=== PATIENT | male | born 1970 | race Caucasian/White ===

== ENCOUNTER 2024-11-17 01:11 | Day surgery (SDC) | payer OTHER, SELFPAY ==
[2024-11-08 14:48] VITALS: BMI 33.3
--- NOTE | 2024-11-08 14:59 | SUR.PREOP ---
Spoke with patient regarding medication plavix. patient verbalizes understanding that the last dose is to be taken on 11/08/24 and the Endoscopist will instruct them when to restart after the procedure. Patient also aware that per Dr. Perez to start on asprin 81mg until 5 days before his procedure.
--- OUTSIDE RECORDS SUMMARY | 2024-11-17 01:14 | XMS_ITS | Referral Summary ---
Author Organization [facility] [address] [place] [id number] Care Team Providers Care Bead Flipper Name Role Phone Modesto Tejada MD Unavailable Rios Vang MD Primary Care Provider [phone] Encounters Date Type Department Care Team Description 11/08/2024 9:00 AM PLUMBER SUPERVISOR Office Visit [facility] Medical [facility] Diabetes and Endocrinology [address] [place] [phone] Jenni Choi NP Type 2 diabetes mellitus with hyperglycemia, without long-term current use of insulin (HCC) (Primary Dx); Hypertension associated with type 2 diabetes mellitus (HCC); Hyperlipidemia associated with type 2 diabetes mellitus (HCC); Type 2 diabetes mellitus with diabetic polyneuropathy, without long-term current use of insulin (HCC); Abnormal thyroid function test 09/13/2024 Telephone [facility] Diabetes and Endocrinology [address] [place] [phone] Jenni Choi NP Med Refill from Last 3 Months Allergies Active Allergy Reactions Criticality Noted Date Comments Ticagrelor Other (See comments) ,Shortness of breath High 09/18/2022 Medications blood-glucose meter kit Active lancets [facility] Active atorvastatin (LIPITOR) 80 mg tablet Take 1 tablet (80 mg total) by mouth daily 1 Active lisinopriL (PRINIVIL,ZESTR IL) 5 mg tablet Take 1 tablet (5 mg total) by mouth daily 2 Active clopidogreL (PLAVIX) 75 mg tablet Take 1 tablet (75 mg total) by mouth daily 2 Active nitroglycerin (NITROSTAT) 0.[address] 1 TABLET UNDER THE TONGUE EVERY 5 MINUTES NEEDED FOR CHEST PAIN. 2 Active ranolazine ER (RANEXA) 500 mg 12 hr tablet Take 1 tablet (500 mg total) by mouth 2 (two) times a day Active blood glucose diagnostic strip One touch ulta 2 glucose test strips test blood sugars four times every day 150 strip 3 4 Active ezetimibe (ZETIA) 10 mg tablet Take 1 tablet (10 mg total) by mouth daily 4 Active metoprolol XL (TOPROL-XL) 25 mg extended release tablet Take 1 tablet (25 mg total) by mouth daily 4 Active Farxiga 10 mg tabletIndicatio ns:Type 2 diabetes mellitus with hyperglycemia, without long-term current use of insulin (HCC) TAKE ONE TABLET (10 MG TOTAL) BY MOUTH DAILY 90 tablet 3 4 Active ergocalciferol (VITAMIN D) 50,000 unit capsule TAKE 1 CAPSULE EVERY WEEK BY ORAL ROUTE. Active pregabalin (LYRICA) 75 mg capsule Take 1 capsule (75 mg total) by mouth 2 (two) times a day 180 capsule 2 4 Active ubrogepant (UBRELVY) 100 mg tablet Take 1 tablet (100 mg total) by mouth 2 (two) times a day as needed 5 Active traMADoL (ULTRAM) 50 mg tablet Take 1 tablet (50 mg total) by mouth every 6 (six) hours as needed 4 Active tamsulosin (FLOMAX) 0.4 mg extended release capsule 5 Active methocarbamoL (ROBAXIN) 750 mg tablet Take by mouth 2 (two) times a day as needed 5 Active metFORMIN (GLUCOPHAGE) 500 mg tabletIndicatio ns:Type 2 diabetes mellitus with diabetic polyneuropathy, without long-term current use of insulin (HCC) Take 1 tablet (500 mg total) by mouth 2 (two) times a day with meals 180 tablet 3 5 Active metFORMIN (GLUCOPHAGE) 500 mg tabletIndicatio ns:Type 2 diabetes mellitus with diabetic polyneuropathy, without long-term current use of insulin (HCC) TAKE ONE BY MOUTH TWICE DAILY WITH MEALS 180 tablet 3 4 11/08/19 25 Discontinu ed(Reorder ) Active Problems Problem Noted Date Diagnosed Date Type 2 diabetes mellitus with diabetic polyneuro geeta 10/30/2023 Assessment & Plan (11/08/2024 9:07 AM PLUMBER SUPERVISOR): Chronic problem. Currently taking Lyrica 75mg bid Reviewed foot care; needs to lotion daily. Aware to check feet nightly, not to go barefoot. Assessment & Plan (08/06/2024 10:05 AM PLUMBER SUPERVISOR): Chronic problem. Currently taking Lyrica 75mg bid Reviewed foot care; needs to lotion daily. Aware to check feet nightly, not to go barefoot. Assessment & Plan (04/28/2024 10:34 AM CDT): Chronic problem. Currently taking Lyrica 75mg bid Reviewed foot care; needs to lotion daily. Aware to check feet nightly, not to go barefoot. Assessment & Plan (10/30/2023 9:59 AM PLUMBER SUPERVISOR): Start Lyrica Hypertension associated with type 2 diabetes michael litus 07/28/2023 Assessment & Plan (11/08/2024 9:06 AM PLUMBER SUPERVISOR): Chronic problem. Controlled on current Lisinopril 5mg, metoprolol XL 25mg bid. Assessment & Plan (08/06/2024 10:05 AM PLUMBER SUPERVISOR): Chronic problem. Controlled on current Lisinopril 5mg, metoprolol XL 25mg bid. Will update labs today. Does not mychart. Verified phone #/address to contact re: results. Assessment & Plan (04/28/2024 10:34 AM CDT): Chronic problem. Controlled on current Lisinopril 5mg, metoprolol XL 25mg bid. Assessment & Plan (10/30/2023 9:56 AM PLUMBER SUPERVISOR): Chronic, well controlled Continue Lisinopril Assessment & Plan (07/29/2023 9:07 AM PLUMBER SUPERVISOR): Chronic problem. Controlled on current Lisinopril 5mg, isosorbide mononitrate ER 30mg daily, metoprolol XL 25mg bid. Will update labs today. Does not mychart. Verified phone #/address to contact re: results. Abnormal thyroid function test 12/10/2022 Assessment & Plan (11/08/2024 9:08 AM PLUMBER SUPERVISOR): Has been off methimazole since 12/12/22. TSH/T4 WNL 04/2024 but T3 remained elevated (but improved). Will repeat this summer. Assessment & Plan (08/06/2024 10:56 AM PLUMBER SUPERVISOR): Has been off methimazole since 12/12/22. TSH/T4 WNL 04/2024 but T3 remained elevated (but improved). Assessment & Plan (04/28/2024 10:35 AM CDT): Has been off methimazole since 12/12/22. Will repeat TFTs at next appt. TSH/T4 WNL 04/2023 but T3 remained elevated (but improved). Will update TFTs today. Verified that he uses [facility]. Aware to check results/results letter in [facility]. Will contact by phone if needed. Assessment & Plan (07/29/2023 9:10 AM PLUMBER SUPERVISOR): Has been off methimazole since 12/12/22. Will repeat TFTs at next appt. TSH/T4 WNL 04/2023 but T3 remained elevated (but improved). Assessment & Plan (05/08/2023 10:00 AM CDT): New problem Has been off methimazole since 12/12/22. Will repeat TFTs today. TSH/T4 WNL 01/2023 but T3 remained elevated (but improved). Verified phone #/address to contact re: results. Assessment & Plan (01/14/2023 9:35 AM CDT): New problem Has been off methimazole since 12/12/22. Will repeat TFTs today. Verified phone #/address to contact re: results. 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 This does not indicate thyroid dysfunction and does not need pharmacological intervention I repeated TFTs today including TSI and TPO antibodies. I did an ultrasound on Bruno that was completely normal. I have advised him on holding the methimazole. Class 2 severe obesity due t o excess calories with serious comorbidity and body mass index (BMI) of 35.0 to 35.9 in adult 10/01/2022 Assessment & Plan (10/01/2022 9:49 AM PLUMBER SUPERVISOR): Discussed healthy diet and importance of regular physical activity (20- 30min/day, 150min/wk). Has been walking. Reviewed red flags (NSTEMI 09/05/22) Dizziness and giddiness 07/16/2022 Assessment & Plan (07/16/2022 2:59 PM CDT): Hearing test [facility] Will obtain MRI report from [facility] in [place] Have vision checked Consider Vestibular rehab if no continued improvement Sensorineural hearing loss (SNHL) of both ears 1 09/15/2021 Assessment & Plan (07/16/2022 2:57 PM CDT): Hearing test [facility] Will obtain MRI report from [facility] in [place] Have vision checked Hyperlipidemia associated with type 2 diabetes jimmy [email or web address] 05/22/2022 Assessment & Plan (11/08/2024 9:06 AM PLUMBER SUPERVISOR): Chronic problem, currently taking atorvastatin 80mg daily & zetia 10mg. Last lipid panel: 08/06/24 LDL=41, TG=85. Assessment & Plan (08/06/2024 10:43 AM PLUMBER SUPERVISOR): Chronic problem, currently taking atorvastatin 80mg daily & zetia 10mg. Last lipid panel: 07/30/23 LDL=77, TG=67. Will update labs today. Does not mychart. Verified phone #/address to contact re: results. Assessment & Plan (05/03/2024 11:42 AM CDT): Chronic problem, currently taking atorvastatin 80mg daily & zetia 10mg. Last lipid panel: 07/30/23 LDL=77, TG=67. Assessment & Plan (07/29/2023 9:08 AM PLUMBER SUPERVISOR): Chronic problem, currently taking atorvastatin 80mg daily. Last lipid panel: 09/06/22 LDL=92, MI=398 Will update labs today. Does not mychart. Verified phone #/address to contact re: results. Assessment & Plan (05/08/2023 10:01 AM CDT): Chronic problem, currently taking atorvastatin 80mg daily. Last lipid panel: 09/06/22 LDL=92, IC=498 No changes at this time. Assessment & Plan (01/14/2023 9:32 AM CDT): Chronic problem, well controlled on current regimen. Last LDL=92 09/05/22. Atorvastatin 80mg daily. Has improved diet. No changes at this time. Assessment & Plan (10/01/2022 9:50 AM PLUMBER SUPERVISOR): Chronic problem, well controlled on current regimen. Last LDL=92 09/05/22. Atorvastatin 80mg daily. Has improved diet. No changes at this time. Assessment & Plan (05/23/2022 12:24 PM CDT): Chronic problem. On statin therapy, no changes. Type 2 diabetes mellitus wit h hyperglycemia, without long-term current use of insulin 09/11/2017 Assessment & Plan (11/08/2024 9:41 AM PLUMBER SUPERVISOR): Chronic problem, at goal. A1c improved from 6.3% 08/06/24 to now 6.1%. no changes at this time. Current medications: Metformin 500 mg twice daily with meals Farxiga 10 mg UTD on labs UTD on DM eye exam (05/14/24 [facility] Engaged with cardiology. Stop drinking regular soda! Increase activity as you can tolerate. Strive for regular exercise (30min most days) and diet (get at least 4-5 servings of fruit and veggies daily, avoid processed foods, increase lean protein intake and decrease carb portions as well as fruit juices, regular soda & desserts). Watch carbs and simple sugars. Check the feet daily for skin breakdown and infection. Assessment & Plan (08/06/2024 10:28 AM PLUMBER SUPERVISOR): Chronic problem, at goal. A1c improved from 6.6% 04/28/24 to now 6.3%. Current medications: Metformin 500 mg twice daily with meals Farxiga 10 mg Will update labs today. Does not mychart. Verified phone #/address to contact re: results. UTD on DM eye exam (05/14/24 no [facility] ). Engaged with cardiology. Stop drinking regular soda! Increase activity as you can tolerate. Strive for regular exercise (30min most days) and diet (get at least 4-5 servings of fruit and veggies daily, avoid processed foods, increase lean protein intake and decrease carb portions as well as fruit juices, regular soda & desserts). Watch carbs and simple sugars. Check the feet daily for skin breakdown and infection. Assessment & Plan (04/28/2024 11:07 AM CDT): Chronic problem, at goal. A1c stable/improved at 6.6%. Mounjaro 2.5mg weekly sent in to [facility] in [place]. If it is feasible; will send to mail order. If able to get Mounjaro; pay attention to your blood sugars. May be able to decrease/stop either metformin or farxiga. Reviewed similar SE as Ozempic. To stop if any abd pain or unresolving N/V. Current medications: Metformin 500 mg twice daily with meals Farxiga 10 mg Mounjaro 2.5mg weekly UTD on labs UTD on DM eye exam (08/03/22 no [facility]). Engaged with cardiology. Stop drinking regular soda! Increase activity as you can tolerate. Strive for regular exercise (30min most days) and diet (get at least 4-5 servings of fruit and veggies daily, avoid processed foods, increase lean protein intake and decrease carb portions as well as fruit juices, regular soda & desserts). Watch carbs and simple sugars. Check the feet daily for skin breakdown and infection. Assessment & Plan (10/30/2023 9:55 AM PLUMBER SUPERVISOR): Chronic, well controlled Continue Metformin and Farxiga. Diet and exercise . He needs to have an eye exam Assessment & Plan (07/29/2023 9:28 AM PLUMBER SUPERVISOR): Chronic problem, at goal. A1c stable/improved from 6.6% to 6.5%. Current medications: Metformin 500 mg twice daily with meals Farxiga 10 mg daily Will update labs today. Does not mychart. Verified phone #/address to contact re: results. UTD on DM eye exam (due this month). Reports difficulty w/activity d/t fatigue & chest pressure. Engaged with cardiology. Strive for regular exercise (30min most days) and diet (get at least 4-5 servings of fruit and veggies daily, avoid processed foods, increase lean protein intake and decrease carb portions as well as fruit juices, regular soda & desserts). Watch carbs and simple sugars. Check the feet daily for skin breakdown and infection. Assessment & Plan (05/08/2023 10:01 AM CDT): Chronic problem, at goal. A1c increased from 6.2% to 6.6%. Not wearing FSL (cost). Asked him to check BS daily or every other day Current medications: Metformin 500 mg BID Farxiga 10 mg UTD on labs. UTD on DM eye exam. Reports difficulty w/activity d/t fatigue & chest pressure. Engaged with cardiology. Strive for regular exercise (30min most days) and diet (get at least 4-5 servings of fruit and veggies daily, avoid processed foods, increase lean protein intake and decrease carb portions as well as fruit juices, regular soda & desserts). Watch carbs and simple sugars. Check the feet daily for skin breakdown and infection. Assessment & Plan (01/14/2023 9:31 AM CDT): Chronic problem, at goal. A1c improved from 6.6% to 6.2%. Not wearing FSL (cost). Asked him to check BS daily or every other day Has greatly improved diet. Has not drank ETOH is over 6 mos he states. Has cardiac cath scheduled 01/31/23. Current medications: Metformin 500 mg BID Farxiga 10 mg Strive for regular exercise (30min most days) and diet (get at least 4-5 servings of fruit and veggies daily, avoid processed foods, increase lean protein intake and decrease carb portions as well as fruit juices, regular soda & desserts). Watch carbs and simple sugars. Check the feet daily for skin breakdown and infection. Letter sent to [facility] to get copy of eye exam from summer/fall 2021. Assessment & Plan (10/01/2022 9:49 AM PLUMBER SUPERVISOR): Chronic problem, at goal. PCP would like him to monitor BG more often. Does not like to do fingersticks. Agreeable to Nambii Annel 2. Able to down load on his iPhone. Has greatly improved diet. Has not drank ETOH is over 6 mos he states. Remains off work until f/u with cardiology 10/22/22 (NSTEMI 09/05/22). No changes in meds. Assessment & Plan (05/23/2022 12:25 PM CDT): Chronic problem, improving. He is not having widely variable sugars and they have been normal when he checks during episodes of dizziness. Continue same medication regimen. Assessment & Plan (09/06/2021 4:08 PM PLUMBER SUPERVISOR): Hba1c was Lab Results Component Value Date HGBA1C 7.1 09/06/2021 today, indicating suboptimal DM control Goal Hba1c and blood glucose explained Diet and exercise were advised Adjustment to medications: Add Farxiga Continue metformin Check MA Assessment & Plan (02/15/2021 12:44 PM CDT): A1c 6.6. Continue metformin. Will stay off Ozempic for now. Can retry if A1c worsens. Assessment & Plan (10/19/2020 4:43 PM PLUMBER SUPERVISOR): Hba1c was Lab Results Component Value Date HGBA1C 6.0 10/19/2020 today, indicating adequate DM control Goals blood sugars of 120-160 and Hba1c under 7 % was explained. 1800 calorie, consistent carb diet recommended, no more than 3-45 grams of carbs per meal, avoiding concentrated sweet drinks and rapid absorption carbs. 25-45 min daily aerobic and resistance exercise recommended Blood glucose monitoring with fingers sticks. Continue Ozempic and metformin He needs to have an eye exam done Assessment & Plan (09/16/2019 1:39 PM PLUMBER SUPERVISOR): A1c 6.0. Continue metformin and Ozempic 0.25 since A1c improved at this dose and he could not tolerated higher dose. Importance of diet and exercise reviewed. Assessment & Plan (05/11/2019 1:17 PM CDT): Hba1c was Lab Results Component Value Date HGBA1C 7.4 % 05/11/2019 today, indicating suboptimal, worsening DM control 1800 calorie, consistent carb diet recommended, no more than 3-45 grams of carbs per meal, avoiding concentrated sweet drinks and rapid absorption carbs. 25-45 min daily aerobic and resistance exercise recommended Prevention and treatment of hyypoglcyemia discussed. Blood glucose monitoring with fingers sticks once a day Medications: Continue metformin Will try Ozempic. which could help with some weight loss Assessment & Plan (11/10/2018 11:22 AM PLUMBER SUPERVISOR): Hba1c was Lab Results Component Value Date HGBA1C 6.5 11/10/2018 today, indicating Adequate DM control 1800 calorie, consistent carb diet recommended 25-45 min daily aerobic and resistance exercise recommended Prevention and treatment of hyypoglcyemia discussed. Blood glucose monitoring with fingers sticks 1-2 x day . Oral medications: continue Metformin bid. Assessment & Plan (06/04/2018 1:48 PM CDT): Hba1c was Lab Results Component Value Date HGBA1C 6.5 06/04/2018 today, indicating adequate DM control 1800 calorie, consistent carb diet recommended 30 min daily aerobic and resistance exercise recommended Prevention and treatment of hyypoglcyemia discussed. Blood glucose monitoring with fingers sticks 1-2 x day . Assessment & Plan (09/11/2017 3:19 PM PLUMBER SUPERVISOR): Hba1c was 6.1 today, indicating very good DM control 1800 calorie, consistent carb diet recommended 30 min daily aerobic and resistance exercise recommended Prevention and treatment of hyypoglcyemia discussed. Blood glucose monitoring with fingers sticks 1-2 x months. Pt would prefer to stay on Metformin , in spite of occasional diarrhea, and that is fine. I explained to him that there are other good options, that might help also with some weight gain , in case the diarrhea worsens and he can not tolerate it more. Erectile dysfunction due to diseases classified elsewhere 09/11/2017 Assessment & Plan (10/19/2020 4:43 PM PLUMBER SUPERVISOR): Restart sildenafil, 60 mg daily Assessment & Plan (11/10/2018 11:21 AM PLUMBER SUPERVISOR): Advised on getting a penile vacuum pump device Assessment & Plan (06/04/2018 1:48 PM CDT): Try Viagra Assessment & Plan (09/11/2017 3:19 PM PLUMBER SUPERVISOR): Related to DM . Options of rx discussed Pt agrees on trying Cialis. Low testosterone in male 09/11/2017 Assessment & Plan (05/23/2022 12:24 PM CDT): Chronic problem, no benefit with testosterone replacement so now off. Assessment & Plan (09/06/2021 4:07 PM PLUMBER SUPERVISOR): Continue T replacement with testosterone injection Will get results of labs done recently by primary care doctor Assessment & Plan (02/15/2021 12:43 PM CDT): Provided with information for Good Rx where testosterone will be more affordable. He will start injections and follow up with labs just prior to NOV Assessment & Plan (10/19/2020 4:44 PM PLUMBER SUPERVISOR): Restart T Testosterone, with Testosterone cypionate, 100 mg weekly Assessment & Plan (09/16/2019 1:39 PM PLUMBER SUPERVISOR): Declines to have testosterone checked today since he is leaving town for work and will not be home for 5-6 months. He prefers to wait until then since he did not notice any difference taking testosterone. Assessment & Plan (05/11/2019 1:20 PM CDT): Will recheck T levels Restart T as indicated. Assessment & Plan (11/10/2018 11:21 AM PLUMBER SUPERVISOR): Will get T levels results Consider subc T every week. Assessment & Plan (06/04/2018 1:48 PM CDT): Recheck T levels Pt open to the option of T injections. Assessment & Plan (09/11/2017 3:20 PM PLUMBER SUPERVISOR): Pathophysiology of the condition was discussed with the patient at length Difference between primary vs secondary ( central-pituitary) hypogonadism was also explained to the patient Deleterious effects of hypogonadism were explained, Including decreased libido, fatigue, bone and muscle mass loss and probably increased cardiovascular risk . Need to do laboratory and imaging studies ( e.g. Pituitary ) , trying to differentiate primary vs secondary hypogonadism was also explained. Options of treatment , including Injectable and topical Testosterone were also discussed. Side effects, include prostate enlargement ( including probably prostate cancer ) with worsening urinary symptoms , increased RBC mass, with risk of erythrocytosis and , worsening sleep apnea. Pt not sure about wanting to take T replacement Will double check morning T levels, along with FSH and prolactin. Resolved Problems Problem Noted Date Diagnosed Date Resolved Date Morbid (severe) obesity due to excess calories 05/23/2022 09/30/2022 Loss of balance 09/30/2022 Social History Tobacco Use Types Packs/Day Years Used Date Smoking Tobacco: Never Smokeless Tobacco: Never Tobacco Cessation:Counseling Given: Not Answered Alcohol Use Standard Drinks/Week Comments Yes 0 (1 standard drink = 0.6 oz pur e alcohol) PHQ-2 Answer Date Recorded PHQ-2 Total Score (If total score is 3 or more points, staff should administer the PHQ-9) 0 10/01/2022 Sex and Gender Information Value Date Recorded Sex Assigned at Not on file Legal Sex Male 4:15 PM PLUMBER SUPERVISOR Gender Identity Not on file Sexual Orientation Not on file Last Filed Vital Signs Vital Sign Reading Time Taken Comments Blood Pressure 120/76 11/08/2024 8:59 AM PLUMBER SUPERVISOR Pulse 80 11/08/2024 8:59 AM PLUMBER SUPERVISOR Temperature 36.8 C (98.3 F) 07/16/2022 2:23 PM CDT Respiratory Rate 16 11/08/2024 8:59 AM PLUMBER SUPERVISOR Oxygen Saturation 97% 07/16/2022 2:23 PM CDT Inhaled Oxygen Concentration - - Weight 90.7 kg (200 lb) 11/08/2024 8:59 AM PLUMBER SUPERVISOR Height 167.6 cm (5' 5.98 ) 11/08/2024 8:59 AM CS T Body Mass Index 32.3 11/08/2024 8:59 AM PLUMBER SUPERVISOR Plan of Treatment Not on file Procedures Procedure Name Priority Date/Time Associated Diagnosis Comments POCT GLUCOSE Routine 11/08/2024 8:57 AM PLUMBER SUPERVISOR Type 2 diabetes mellitus with hyperglycemia, without long-term current use of insulin (HCC) POCT HEMOGLOBIN A1C Routine 11/08/2024 8 :57 AM PLUMBER SUPERVISOR Type 2 diabetes mellitus with hyperglycemia, without long-term current use of insulin (HCC) LIPID PANEL Routine 08/06/2024 4:00 PM PLUMBER SUPERVISOR Type 2 diabetes mellitus with hyperglycemia, without long-term current use of insulin (HCC) Hyperlipidemia associated with type 2 diabetes mellitus (HCC) ALBUMIN CREATININE RATIO, URINE Routine 08/06/2024 4:00 PM PLUMBER SUPERVISOR Type 2 diabetes mellitus with hyperglycemia, without long-term current use of insulin (HCC) HM DIABETES EYE EXAM Routine 05/14/2024 7:49 AM CDT COMPREHENSIVE METABOLIC PANEL Routine 07/30/2023 9:51 AM PLUMBER SUPERVISOR Type 2 diabetes mellitus with diabetic polyneuropathy, without long-term current use of insulin (CMS/HCC) (HCC) Hypertension associated with type 2 diabetes mellitus (HCC) from Last 3 Months or Most Recently Relevant to Health Maintenance Results * (ABNORMAL) POCT hemoglobin A1c (11/08/2024 8:57 AM PLUMBER SUPERVISOR) Hemoglobin A1C, POC 6.1 4.0 - 5.6 % Blood 11/08/2024 8:57 AM PLUMBER SUPERVISOR us Jenni Choi NP POINT OF CARE TEST ORDERA BLES Final Result * (ABNORMAL) POCT glucose (11/08/2024 8:57 AM PLUMBER SUPERVISOR) Pathologist [facility] Glucose Blood, POC 126 mg/dL Blood 11/08/2024 8:57 AM PLUMBER SUPERVISOR us Jenni Choi NP POINT OF CARE TEST ORDERA BLES Final Result * Albumin Creatinine Ratio, Urine (08/06/2024 4:00 PM PLUMBER SUPERVISOR) Pathologist [facility] Albumin Ur <12.0 mg/L Comment: Interpretive Data No reference range established. Current interpretive data was last revised 2019. Creatinine Ur 76.8 mg/dL MO[facility] PULIDO Comment: Interpretive Data No reference range established. Current interpretive data was last revised 2019. Albumin Creatinine Ratio, Ur <16 1 - 29 mg/g [facility]UL[facility] Urine 08/06/2024 4:00 PM PLUMBER SUPERVISOR 08/06/2024 7:10 PM PLUMBER SUPERVISOR us Jenni Choi NP LAB URINE ORDERABLES [place] Result [facility] [place]UL[place] [id number] [address] Department of [place] [address] * (ABNORMAL) Lipid panel (08/06/2024 4:00 PM PLUMBER SUPERVISOR) Pathologist [facility] Cholesterol 88 30 - 199 mg/dL Comment: Interpretive Data Ages < or = 19 years Acceptable: <170 mg/dL Borderline high: 170-199 mg/dL High: >or= 200 mg/dL Ages > or = 20 years Desirable: <200 mg/dL Borderline high: 200-239 mg/dL High: >or= 240 mg/dL Literature References: 1. Expert Panel on Integrated Guidelines for Cardiovascular Health and Risk Reduction in Children and Adolescents. Pediatrics 2011;128:S213 2. NCEP Expert Panel. Circulation 2004;110:227 Current Interpretive Data was last revised on 2018. Triglycerides 85 <=149 mg/dL MOLLY Comment: Interpretive Data Ages < or = 9 years Acceptable: <75 mg/dL Borderline high: 75-99 mg/dL High: >or= 100 mg/dL Ages 10 to 20 years Acceptable: <90 mg/dL Borderline high: 90-129 mg/dL High: >or= 130 mg/dL Ages > or = 20 years Desirable: <150 mg/dL Borderline high: 150-199 mg/dL High: 200-499 mg/dL Very high: >or= 499 mg/dL Literature References: 1. Expert Panel on Integrated Guidelines for Cardiovascular Health and Risk Reduction in Children and Adolescents. Pediatrics 2011;128:S213 2. NCEP Expert Panel. Circulation 2004;110:227 Current Interpretive Data was last revised on 2018. HDL 30(L) >=40 mg/dL MOLLY Comment: Interpretive Data Ages < or = 19 years Acceptable: >45 mg/dL Borderline low: 40-45 mg/dL Low: <40 mg/dL Ages > or = 20 years Desirable: >or= 60 mg/dL Low: <40 mg/dL Literature References: 1. Expert Panel on Integrated Guidelines for Cardiovascular Health and Risk Reduction in Children and Adolescents. Pediatrics 2011;128:S213 2. NCEP Expert Panel. Circulation 2004;110:227 Current Interpretive Data was last revised on 2018. LDL, calculated 41 <=129 mg/dL MOLLY Comment: Interpretive Data Ages < or = 19 years Acceptable: <110 mg/dL Borderline high: 110-129 mg/dL High: >or= 130 mg/dL Ages > or = 20 years Optimal: <100 mg/dL Near optimal: 100-129 mg/dL Borderline high: 130-159 mg/dL High: >160 mg/dL Calculated using the Floyd LDL-C estimating equation. This equation was implemented on 2024. Prior to this date LDL-C was estimated using the Friedewald equation. Literature References: 1. Expert Panel on Integrated Guidelines for Cardiovascular Health and Risk Reduction in Children and Adolescents. Pediatrics 2011;128:S213 2. NCEP Expert Panel. Circulation 2004;110:227 3. Floyd M et al. REBEKA Cardiol. 2019January 13;5(5):540-548. doi: 10.1001/jamacardio.2020.0013 Current Interpretive Data was last revised on 2024. Non-HDL Cholesterol 58 mg/dL MOLLY PULIDO Comment: Interpretive Data Ages < or = 19 years Acceptable: <120 mg/dL Borderline high: 120-144 mg/dL High: >145 mg/dL Ages > or = 20 years When triglycerides are >200 mg/dL, Non-HDL cholesterol is a secondary target of therapy with treatment goals that are 30 mg/dL greater than the LDL cholesterol target. Literature References: 1. Expert Panel on Integrated Guidelines for Cardiovascular Health and Risk Reduction in Children and Adolescents. Pediatrics 2011;128:S213 2. NCEP Expert Panel. Circulation 2004;110:227 Current Interpretive Data was last revised on 2018. Chol/HDL ratio 3 MOLLY PULIDO Blood 08/06/2024 4:00 PM PLUMBER SUPERVISOR 08/06/2024 7:10 PM PLUMBER SUPERVISOR Jenni Choi [employer]LL [employer]BER [employer]ARD WORKER LAB BLOOD ORDERABLES Tootie l Result MOLLY PULIDO [id number] [address] Department [place] [address] * HM DIABETES EYE EXAM (05/14/2024 7:49 AM CDT) us Historical Provider HEALTH MAINTENANCE Edited Result - Final * (ABNORMAL) Comprehensive metabolic panel (07/30/2023 9:51 AM PLUMBER SUPERVISOR) SCRIBED Sodium 138 136 - 145 mmol/L EXTERNAL LAB SCRIBED Potassium 4.7 3.5 - 5.1 mmol/L EXTERNAL LAB SCRIBED Chloride 102 100 - 108 mmol/L EXTERNAL LAB SCRIBED Carbon Dioxide 27.2 21 - 32 mmol/L EXTERNAL LAB SCRIBED Urea Nitrogen (BUN) 11 7 - 18 mg/dl EXTERNAL LAB SCRIBED Creatinine 1.00 0.7 - 1.3 mg/dl EXTERNAL LAB SCRIBED Glucose 118(A) 70 - 99 mg/dl EXTERNAL LAB SCRIBED Calcium 9.1 8.5 - 10.1 mg/dl EXTERNAL LAB SCRIBED Bilirubin 0.8 0.2 - 1.2 mg/dl EXTERNAL LAB SCRIBED Plasma Protein 7.5 6.4 - 8.2 g/dl EXTERNAL LAB SCRIBED Albumin 3.7 3.4 - 5.0 g/dl EXTERNAL LAB SCRIBED Alkaline Phosphatase 78 50 - 136 Units/L EXTERNAL LAB SCRIBED Alanine Transaminase (ALT) 44 16 - 60 Units/L EXTERNAL LAB SCRIBED Aspartate Transaminase (AST) 22 15 - 37 Units/L EXTERNAL LAB SCRIBED eGFR in NonAfrican Central African 89 >90 - NA EXTERNAL LAB Blood 07/30/2023 9:51 AM PLUMBER SUPERVISOR us Jenni Choi NP LAB BLOOD ORDERABLES Tootie hardin Result EXTERNAL LAB from Last 3 Months or Most Recently Relevant to Health Maintenance Insurance [facility] CMR Care Teams Bead Flipper Relationship Specialty Start Date End Date Rios Vang MD [address] [place] [address] PCP - General Internal Medicine 04/28/24 [place] [id number] [address] Consulting Physician Endocrinology Diabetes & Metabolism 10/14/18
--- OUTSIDE RECORDS SUMMARY | 2024-11-17 01:14 | XMS_ITS | Encounter Summary ---
Author Organization [facility] Address [address] [place] [address] Care Team Providers Care Pen Maker Name Role Phone Rios Vang MD Primary Care Provider Camden Perez MD Unavailable [phone] Shaunna Guillermo MD Unavailable Encounter Details Date Type Department Care Team (Late st Contact Info) Description 07/01/2023 Hospital Orders Only [facility] [employer] [place], [place] [id number] Jason Cortez MD [facility] [address] [place], [place] [id number] Social History Tobacco Use Types Packs/Day Years Used Date Smoking Tobacco: Never Smokeless Tobacco: Never Alcohol Use Standard Drinks/Week Comments Not Currently 0 (1 standard drink = 0.6 oz pur e alcohol) Sex and Gender Information Value Date Recorded Sex Assigned at Male 10/01/2024 2:09 PM ANCHORMAN Legal Sex Male 8:03 AM CDT Gender Identity Not on file Sexual Orientation Not on file Occupation Industry Job Start Date Job End Date [employer] Not on file Not on file Not on file documented as of this encounter Functional Status * RETIRED Are you deaf or do you have serious difficulty hearing Answer Date of Assessment Author Status No 09/06/2022 1:00 AM ANCHORMAN Activ e * RETIRED Are you blind or do you have serious difficulty seeing, even when wearing glasses? Answer Date of Assessment Author Status No 09/06/2022 1:00 AM ANCHORMAN Activ e * Do you have serious difficulty walking or climbing stairs? Answer Date of Assessment Author Status No 09/06/2022 1:00 AM Endy Lee RN Active * Do you have difficulty dressing or bathing? Answer Date of Assessment Author Status No 09/06/2022 1:00 AM Endy Lee RN Active * Because of a physical, mental, or emotional condition, do you have difficulty doing errands alone such as visiting a doctor's office or shopping? Answer Date of Assessment Author Status No 09/06/2022 1:00 AM Endy Lee RN Active documented as of this encounter Mental Status * Because of a physical, mental, or emotional condition, do you have serious difficulty concentrating, remembering, or making decisions? Answer Entry Date Author Status No 09/06/2022 1:00 AM Endy Lee RN Active documented in this encounter Plan of Treatment Upcoming Encounters Date Type Department Care Team (Late st Contact Info) Description 01/04/2025 9:40 AM CDT Office Visit [facility] Emergency Department - [address], [address] [place] [id number] Teri Marmolejo NP 3 [facility] [address] [place] [id number] 02/10/2025 11:40 AM CDT Office Visit [facility] Emergency Department - [facility] [address] [facility], [address] [place] [phone] Anjel Flores MD [address] [place] [id number] 04/01/2025 12:30 PM CDT Office Visit [facility] [phone] Camden Perez MD [address] [phone] documented as of this encounter Goals Goal Patient Goal Type Associated Problems Recent Progress Patient-Stated? Author Patient will return to prior living situation and remain independent in ADLs upon discharge from hospital Lifestyle No Joaquina Horner, RN documented as of this encounter Visit Diagnoses Not on filedocumented in this encounter Care Teams Pen Maker Relationship Specialty Start Date End Date Rios Vang MD [address] [phone] PCP - General INTERNAL MEDICINE 10/25/21 Camden Perez MD [address] [phone] Consulting Physician CARDIOVASCULAR DISEASE 08/18/24 Shaunna Guillermo MD [address] [place] [address] [address] [place] [address] INTERNAL MEDICINE HEMATOLOGY & ONCOLOGY 08/18/24 documented as of this encounter
--- OUTSIDE RECORDS SUMMARY | 2024-11-17 01:14 | XMS_ITS | Referral Summary ---
Author Organization [facility] Address [address] [place] [address] Care Team Providers Care Sample Grader Name Role Phone Unavailable Primary Care Provider Unavailabl e Source Comments [facility],non-owned Affiliates and Associated Physician Practices is amultiple site organization consisting of ambulatory clinics and hospital sitesin [place], [place], [place] and [place]. This disclosure is being madepursuant to the Care Everywhere program and may not contain all information available regarding this patient. Last updated 18.[facility] [employer] Social History Tobacco Use Types Packs/Day Years Used Date Smoking Tobacco: Never Assessed Sex and Gender Information Value Date Recorded Sex Assigned at Not on file Gender Identity Not on file Sexual Orientation Not on file Plan of Treatment Not on file
--- OUTSIDE RECORDS SUMMARY | 2024-11-17 01:14 | XMS_ITS | Clinical Summary ---
Author Organization [facility] [address] [place] [phone] Care Team Providers Care Show Dog Trainer Name Role Phone Modesto Tejada MD Unavailable Rios Vang MD Primary Care Provider [phone] Allergies Active Allergy Reactions Criticality Noted Date Comments Ticagrelor Other (See comments) ,Shortness of breath High 09/18/2022 Medications blood-glucose meter kit Active lancets misc Active atorvastatin (LIPITOR) 80 mg tablet Take [...] 10/30/2023 Assessment & Plan (11/08/2024 9:07 AM WHITESMITH): Chronic problem. Currently taking Lyrica 75mg bid Reviewed foot care; needs to lotion daily. Aware to check feet nightly, not to go barefoot. Assessment & Plan (08/06/2024 10:05 AM WHITESMITH): Chronic problem. Currently taking Lyrica 75mg bid Reviewed foot care; needs to lotion daily. Aware to check feet nightly, not to go barefoot. Assessment & Plan (04/28/2024 10:34 AM CDT): Chronic problem. Currently taking Lyrica 75mg bid Reviewed foot care; needs to lotion daily. Aware to check feet nightly, not to go barefoot. Assessment & Plan (10/30/2023 9:59 AM WHITESMITH): Start Lyrica Hypertension associated with type 2 diabetes michael litus 07/28/2023 Assessment & Plan (11/08/2024 9:06 AM WHITESMITH): Chronic problem. Controlled on current Lisinopril 5mg, metoprolol XL 25mg bid. Assessment & Plan (08/06/2024 10:05 AM WHITESMITH): Chronic problem. Controlled on current Lisinopril 5mg, metoprolol XL 25mg bid. Will update labs today. Does not mychart. Verified phone #/address to contact re: results. Assessment & Plan (04/28/2024 10:34 AM CDT): Chronic problem. Controlled on current Lisinopril 5mg, metoprolol XL 25mg bid. Assessment & Plan (10/30/2023 9:56 AM WHITESMITH): Chronic, well controlled Continue Lisinopril Assessment & Plan (07/29/2023 9:07 AM WHITESMITH): Chronic problem. Controlled on current Lisinopril 5mg, isosorbide mononitrate ER 30mg daily, metoprolol XL 25mg bid. Will update labs today. Does not mychart. Verified phone #/address to contact re: results. Abnormal thyroid function test 12/10/2022 Assessment & Plan (11/08/2024 9:08 AM WHITESMITH): Has been off methimazole since 12/12/22. TSH/T4 WNL 04/2024 but T3 remained elevated (but improved). Will repeat this summer. Assessment & Plan (08/06/2024 10:56 AM WHITESMITH): Has been off methimazole since 12/12/22. TSH/T4 WNL 04/2024 but T3 remained elevated (but improved). Assessment & Plan (04/28/2024 10:35 AM CDT): Has been off methimazole since 12/12/22. Will repeat TFTs at next appt. TSH/T4 WNL 04/2023 but T3 remained elevated (but improved). Will update TFTs today. Verified that he uses [facility]. Aware to check results/results letter in [facility]. Will contact by phone if needed. Assessment & Plan (07/29/2023 9:10 AM WHITESMITH): Has been off methimazole since 12/12/22. Will [...] 10/01/2022 Assessment & Plan (10/01/2022 9:49 AM WHITESMITH): Discussed healthy diet and importance of regular physical activity (20- 30min/day, 150min/wk). Has been walking. Reviewed red flags (NSTEMI 09/05/22) Dizziness and giddiness 07/16/2022 Assessment & Plan (07/16/2022 2:59 PM CDT): Hearing test [facility] Will obtain MRI report from [facility] in [place] Have vision checked Consider Vestibular rehab if no continued improvement Sensorineural hearing loss (SNHL) of both ears 1 09/15/2021 Assessment & Plan (07/16/2022 2:57 PM CDT): Hearing test [facility] Will obtain MRI report from [facility] in [place] Have vision checked Hyperlipidemia associated with type 2 diabetes jimmy fonseca 05/22/2022 Assessment & Plan (11/08/2024 9:06 AM WHITESMITH): Chronic problem, currently taking atorvastatin 80mg daily & zetia 10mg. Last lipid panel: 08/06/24 LDL=41, TG=85. Assessment & Plan (08/06/2024 10:43 AM WHITESMITH): Chronic problem, currently taking atorvastatin 80mg daily & zetia 10mg. Last lipid panel: 07/30/23 LDL=77, TG=67. Will update labs today. Does not mychart. Verified phone #/address to contact re: results. Assessment & Plan (05/03/2024 11:42 AM CDT): Chronic problem, currently taking atorvastatin 80mg daily & zetia 10mg. Last lipid panel: 07/30/23 LDL=77, TG=67. Assessment & Plan (07/29/2023 9:08 AM WHITESMITH): Chronic problem, currently taking atorvastatin 80mg daily. Last lipid panel: 09/06/22 LDL=92, WG=850 Will update labs today. Does not mychart. Verified phone #/address to contact re: results. Assessment & Plan (05/08/2023 10:01 AM CDT): Chronic problem, currently taking atorvastatin 80mg daily. Last lipid panel: 09/06/22 LDL=92, UK=262 No changes at this time. Assessment & Plan (01/14/2023 9:32 AM CDT): Chronic problem, well controlled on current regimen. Last LDL=92 09/05/22. Atorvastatin 80mg daily. Has improved diet. No changes at this time. Assessment & Plan (10/01/2022 9:50 AM WHITESMITH): Chronic problem, well controlled on current regimen. Last LDL=92 09/05/22. Atorvastatin 80mg daily. Has improved diet. No changes at this time. Assessment & Plan (05/23/2022 12:24 PM CDT): Chronic problem. On statin therapy, no changes. Type 2 diabetes mellitus wit h hyperglycemia, without long-term current use of insulin 09/11/2017 Assessment & Plan (11/08/2024 9:41 AM WHITESMITH): Chronic problem, at goal. A1c improved from 6.3% 08/06/24 to now 6.1%. no changes at this time. Current medications: Metformin 500 mg twice daily with meals Farxiga 10 mg UTD on labs UTD on DM eye exam (05/14/24 no DMR [facility] ). Engaged with cardiology. Stop drinking [...] infection. Assessment & Plan (08/06/2024 10:28 AM WHITESMITH): Chronic problem, at goal. A1c improved from 6.6% 04/28/24 to now 6.3%. Current medications: Metformin 500 mg twice daily with meals Farxiga 10 mg Will update labs today. Does not mychart. Verified phone #/address to contact re: results. UTD on DM eye exam (05/14/24 no DMR [facility] ). Engaged with cardiology. Stop drinking regular [...] 6.6%. Mounjaro 2.5mg weekly sent in to [facility] in [place]. If it is feasible; will send to [...] infection. Assessment & Plan (10/30/2023 9:55 AM WHITESMITH): Chronic, well controlled Continue Metformin and Farxiga. Diet and exercise . He needs to have an eye exam Assessment & Plan (07/29/2023 9:28 AM WHITESMITH): Chronic problem, at goal. A1c stable/improved from [...] skin breakdown and infection. Letter sent to [facility] to get copy of eye exam from summer/fall 2021. Assessment & Plan (10/01/2022 9:49 AM WHITESMITH): Chronic problem, at goal. PCP would like him to monitor BG more often. Does not like to do fingersticks. Agreeable to [employer]. Able to down load on his [...] regimen. Assessment & Plan (09/06/2021 4:08 PM WHITESMITH): Hba1c was Lab Results Component Value Date HGBA1C 7.1 09/06/2021 today, indicating suboptimal DM control Goal Hba1c and blood glucose explained Diet and exercise were advised Adjustment to medications: Add Farxiga Continue metformin Check MA Assessment & Plan (02/15/2021 12:44 PM CDT): A1c 6.6. Continue metformin. Will stay off Ozempic for now. Can retry if A1c worsens. Assessment & Plan (10/19/2020 4:43 PM WHITESMITH): Hba1c was Lab Results Component Value Date [...] done Assessment & Plan (09/16/2019 1:39 PM WHITESMITH): A1c 6.0. Continue metformin and Ozempic 0.25 [...] loss Assessment & Plan (11/10/2018 11:22 AM WHITESMITH): Hba1c was Lab Results Component Value Date [...] . Assessment & Plan (09/11/2017 3:19 PM WHITESMITH): Hba1c was 6.1 today, indicating very good [...] 09/11/2017 Assessment & Plan (10/19/2020 4:43 PM WHITESMITH): Restart sildenafil, 60 mg daily Assessment & Plan (11/10/2018 11:21 AM WHITESMITH): Advised on getting a penile vacuum pump device Assessment & Plan (06/04/2018 1:48 PM CDT): Try Viagra Assessment & Plan (09/11/2017 3:19 PM WHITESMITH): Related to DM . Options of rx discussed Pt agrees on trying Cialis. Low testosterone in male 09/11/2017 Assessment & Plan (05/23/2022 12:24 PM CDT): Chronic problem, no benefit with testosterone replacement so now off. Assessment & Plan (09/06/2021 4:07 PM WHITESMITH): Continue T replacement with testosterone injection Will get results of labs done recently by primary care doctor Assessment & Plan (02/15/2021 12:43 PM CDT): Provided with information for Good Rx where testosterone will be more affordable. He will start injections and follow up with labs just prior to NOV Assessment & Plan (10/19/2020 4:44 PM WHITESMITH): Restart T Testosterone, with Testosterone cypionate, 100 mg weekly Assessment & Plan (09/16/2019 1:39 PM WHITESMITH): Declines to have testosterone checked today since he is leaving town for work and will not be home for 5-6 months. He prefers to wait until then since he did not notice any difference taking testosterone. Assessment & Plan (05/11/2019 1:20 PM CDT): Will recheck T levels Restart T as indicated. Assessment & Plan (11/10/2018 11:21 AM WHITESMITH): Will get T levels results Consider subc T every week. Assessment & Plan (06/04/2018 1:48 PM CDT): Recheck T levels Pt open to the option of T injections. Assessment & Plan (09/11/2017 3:20 PM WHITESMITH): Pathophysiology of the condition was discussed with [...] calories 05/23/2022 09/30/2022 Loss of balance 09/30/2022 Encounters Date Type Department Care Team Description 11/08/2024 9:00 AM WHITESMITH Office Visit [facility] Diabetes and Endocrinology [address] [place] [phone] Jenni Choi NP Type 2 diabetes mellitus with hyperglycemia, without long-term current use of insulin (HCC) (Primary Dx); Hypertension associated with type 2 diabetes mellitus (HCC); Hyperlipidemia associated with type 2 diabetes mellitus (HCC); Type 2 diabetes mellitus with diabetic polyneuropathy, without long-term current use of insulin (HCC); Abnormal thyroid function test 09/13/2024 Telephone [facility] Diabetes and Endocrinology [address] [place] [phone] Jenni Choi NP Med Refill from Last 3 Months Medical History Medical History Date Comments Type 2 diabetes mellitus (HCC) Low testosterone in male Hyperlipidemia Family History Medical History Relation Name Comments Diabetes Father Relation Name Status Comments Father Alive Mother Alive Social History Tobacco Use Types Packs/Day Years [...] on file Legal Sex Male 4:15 PM WHITESMITH Gender Identity Not on file Sexual Orientation Not on file Obstetrics History Last Filed Vital Signs Vital Sign Reading Time Taken Comments Blood Pressure 120/76 11/08/2024 8:59 AM WHITESMITH Pulse 80 11/08/2024 8:59 AM WHITESMITH Temperature 36.8 C (98.3 F) 07/16/2022 2:23 PM CDT Respiratory Rate 16 11/08/2024 8:59 AM WHITESMITH Oxygen Saturation 97% 07/16/2022 2:23 PM CDT Inhaled Oxygen Concentration - - Weight 90.7 kg (200 lb) 11/08/2024 8:59 AM WHITESMITH Height 167.6 cm (5' 5.98 ) 11/08/2024 8:59 AM CS T Body Mass Index 32.3 11/08/2024 8:59 AM WHITESMITH Plan of Treatment Health Maintenance Due Date Last Done Comments Colon Cancer Screening-Colonoscopy 1969 Hepatitis C Screening 1969 Prostate Cancer Screening-PSA 1969 DTaP/Tdap/Td Vaccine (1 - Tdap) 1980 Hepatitis B Screening 1987 Regular Well Visit/Exam 18-64 1987 Pneumococcal vaccine <65 (1 of 2 - PCV) 1988 Zoster Vaccine (1 of 2) 2019 Depression Screening 10/01/2023 10/01/2022, 05/11/2019, 11/10/2018, Additional history exists Influenza Vaccine (#1) 2024 eGFR 07/30/2024 07/30/2023, 07/0 01/2022, 09/05/2021 Hemoglobin A1C 05/08/2025 11/08/2024, 07/17, 04/28/2024, Additional history exists Albumin Creatinine Ratio, Urine 08/06/2025 08/06/2024, 07/30/2023, 01/14/2023, Additional history exists Foot Exam 08/06/2025 08/06/2024, 07/16, 05/23/2022, Additional history exists Lipid Panel 08/06/2025 08/06/2024, 07/16, 07/30/2023, Additional history exists Dilated Eye Exam 05/14/2026 05/14/2024, , 09/06/2019, Additional history exists Procedures Procedure Name Priority Date/Time Associated Diagnosis Comments POCT GLUCOSE Routine 11/08/2024 8:57 AM WHITESMITH Type 2 diabetes mellitus with hyperglycemia, without long-term current use of insulin (HCC) POCT HEMOGLOBIN A1C Routine 11/08/2024 8 :57 AM WHITESMITH Type 2 diabetes mellitus with hyperglycemia, without long-term current use of insulin (HCC) LIPID PANEL Routine 08/06/2024 4:00 PM WHITESMITH Type 2 diabetes mellitus with hyperglycemia, without long-term current use of insulin (HCC) Hyperlipidemia associated with type 2 diabetes mellitus (HCC) ALBUMIN CREATININE RATIO, URINE Routine 08/06/2024 4:00 PM WHITESMITH Type 2 diabetes mellitus with hyperglycemia, without long-term current use of insulin (HCC) HM DIABETES EYE EXAM Routine 05/14/2024 7:49 AM CDT COMPREHENSIVE METABOLIC PANEL Routine 07/30/2023 9:51 AM WHITESMITH Type 2 diabetes mellitus with diabetic polyneuropathy, without long-term current use of insulin ([facility]/HCC) (HCC) Hypertension associated with type 2 diabetes mellitus (HCC) from Last 3 Months or Most Recently Relevant to Health Maintenance Results * (ABNORMAL) POCT hemoglobin A1c (11/08/2024 8:57 AM WHITESMITH) Hemoglobin A1C, POC 6.1 4.0 - 5.6 % Blood 11/08/2024 8:57 AM WHITESMITH us Jennijoanna Choi NP POINT OF CARE TEST ORDERA BLES Final Result * (ABNORMAL) POCT glucose (11/08/2024 8:57 AM WHITESMITH) Glucose Blood, POC 126 mg/dL Blood 11/08/2024 8:57 AM WHITESMITH us Jennijoanna Choi COAT OPERATOR INSULATOR POINT OF CARE TEST ORDERA BLES Final Result * Albumin Creatinine Ratio, Urine (08/06/2024 4:00 PM WHITESMITH) Albumin Ur <12.0 mg/L Comment: Interpretive Data No reference range established. Current interpretive data was last revised 2019. Creatinine Ur 76.8 mg/dL MOLLY Comment: Interpretive Data No reference range established. Current interpretive data was last revised 2019. Albumin Creatinine Ratio, Ur <16 1 - 29 mg/g MOLLY Urine 08/06/2024 4:00 PM WHITESMITH 08/06/2024 7:10 PM WHITESMITH us Jenni Choi COAT OPERATOR INSULATOR LAB URINE ORDERABLES [place]ie l Result MOLLY [id number] [address] Department [place] [address] * (ABNORMAL) Lipid panel (08/06/2024 4:00 PM WHITESMITH) Pathologist [facility] Cholesterol 88 30 - 199 mg/dL [...] NCEP Expert Panel. Circulation 2004;110:227 3. Floyd Triplett al. REBEKA Cardiol. 2019January 13;5(5):540-548. doi: [email or web address] [...] 3 MOLLY PULIDO Blood 08/06/2024 4:00 PM WHITESMITH 08/06/2024 7:10 PM WHITESMITH Jenni Choi COAT OPERATOR INSULATOR LAB BLOOD ORDERABLES Tootie hardin Result MOLLY PULIDO [id number] [address] Department [place] [address] * DIABETES EYE EXAM (05/14/2024 7:49 AM CDT) Historical Provider HEALTH MAINTENANCE Edited Result - Final * (ABNORMAL) Comprehensive metabolic panel (07/30/2023 9:51 AM WHITESMITH) SCRIBED Sodium 138 136 - 145 mmol/L [...] Units/L EXTERNAL LAB SCRIBED eGFR in NonAfrican Algerian 89 >90 - NA EXTERNAL LAB Blood 07/30/2023 9:51 AM WHITESMITH us Jenni Choi NP LAB BLOOD ORDERABLES Tootie hardin Result EXTERNAL LAB from Last 3 Months or Most Recently Relevant to Health Maintenance Insurance [facility] CMR Care Teams Show Dog Trainer Relationship Specialty Start Date End Date Rios Vang MD [address] [place] [address] PCP - General Internal Medicine 04/28/24 [place] [id number] [address] Consulting Physician Endocrinology Diabetes & Metabolism 10/14/18
--- OUTSIDE RECORDS SUMMARY | 2024-11-17 01:14 | XMS_ITS | Encounter Summary ---
Author Organization [facility] Address [address] [place] [address] Care Team Providers Care Business Technology Architect Name Role Phone Rios Vang MD Primary Care Provider Camden Perez MD Unavailable [phone] Shaunna Guillermo MD Unavailable [phone] Encounter Details Date Type Department Care Team (Late st Contact Info) Description 01/30/2023 Hospital Orders Only [facility] Rehabilitation Medicine Physician [place], [place] [phone] Jason Cortez MD [facility]. [facility] [address] [place], [place] [id number] Social History Tobacco Use Types Packs/Day Years Used Date Smoking Tobacco: Never Smokeless Tobacco: Never Alcohol Use Standard Drinks/Week Comments Not Currently 0 (1 standard drink = 0.6 oz pur e alcohol) Sex and Gender Information Value Date Recorded Sex Assigned at Male 10/01/2024 2:09 PM QUALITY CONTROL COORDINATOR Legal Sex Male 8:03 AM CDT Gender Identity Not on file Sexual Orientation Not on file Occupation Industry Job Start Date Job End Date [employer] Not on file Not on file Not on file COVID-19 Exposure Response Date Recorded In the last 10 days, have yo u been in contact with someone who was confirmed or suspected to have Coronavirus/COVID-19? No / Unsure 01/31/2023 6:38 AM CDT documented as of this encounter Functional Status * RETIRED Are you deaf or do you have serious difficulty hearing Answer Date of Assessment Author Status No 09/06/2022 1:00 AM QUALITY CONTROL COORDINATOR Activ e * RETIRED Are you blind or do you have serious difficulty seeing, even when wearing glasses? Answer Date of Assessment Author Status No 09/06/2022 1:00 AM QUALITY CONTROL COORDINATOR Activ e * Do you have serious [...] Description 01/04/2025 9:40 AM CDT Office Visit [facility] - [address], [address] [place] [phone] Teri Marmolejo NP [address] [place] [address] [address] [place], [place] [phone] 02/10/2025 11:40 AM CDT Office Visit [facility] - [address], [address] [place] [phone] Anjel Flores MD [address] [place] [address] 04/01/2025 12:30 PM CDT Office Visit [facility]-[address] [phone] Camden Perez MD [address] [phone] documented as of this encounter Goals Goal Patient Goal Type Associated Problems Recent Progress Patient-Stated? Author Patient will return to prior living situation and remain independent in ADLs upon discharge from hospital Lifestyle No Joaquina Horner, RN documented as of this encounter Visit Diagnoses Not on filedocumented in this encounter Care Teams Business Technology Architect Relationship Specialty Start Date End Date Rios Vang MD [address] [phone] PCP - General INTERNAL MEDICINE 10/25/21 Camden Perez MD [address] [phone] Consulting Physician CARDIOVASCULAR DISEASE 08/18/24 Shaunna Guillermo MD [address] [place] [address], [facility] [address] [place] [address] INTERNAL MEDICINE HEMATOLOGY & ONCOLOGY 08/18/24 documented as of this encounter
--- OUTSIDE RECORDS SUMMARY | 2024-11-17 01:14 | XMS_ITS | Clinical Summary ---
Author Organization [facility] Address [address] [place] [address] Care Team Providers Care Basting Marker Name Role Phone Rios Vang MD Primary Care Provider [phone] Bhupinder Rothman MD Unavailable [phone] Shaunna Guillermo MD Unavailable [phone] Allergies Active Allergy Reactions Criticality Noted Date Comments Ticagrelor Shortness of Breath High 09/18/2022 Medications metFORMIN (GLUCOPHAGE) 500 MG tablet Take 1 tablet (500 mg total) by mouth 2 (two) times daily. 10/22/19 22 Active pregabalin (LYRICA) 75 MG capsule Take 1 capsule (75 mg total) by mouth 2 (two) times daily. 10/30/19 24 Active vitamin D2, ergocalciferol , (DRISDOL) 1.25 mg capsule Take 1 capsule (1.25 mg total) by mouth every 7 days. Fridays Active ezetimibe (ZETIA) 10 MG tablet Take 1 tablet (10 mg total) by mouth daily. 90 tablet 1 06/08/20 24 Active Additional Information Patient taking differently:10 mg OralNightly, Reported on 11/04/2024 metoprolol succinate ER (TOPROL-XL) 25 MG 24 hr tablet Take 1 tablet (25 mg total) by mouth daily. 90 tablet 1 06/08/20 24 Active dapagliflozin (FARXIGA) 10 MG tablet Take 1 tablet (10 mg total) by mouth nightly. 12/10/19 24 Active lisinopril (PRINIVIL) 5 MG tablet TAKE ONE TABLET (5 MG TOTAL) BY MOUTH DAILY. 90 tablet 08/09/20 24 Active Additional Information Patient taking differently: 5 mg Oral Daily, Reported on 11/04/2024 senna-docusate (SENOKOT-S) 8.6-50 MG tablet Take 1 tablet by mouth daily. 60 tablet 1 08/23/20 24 Active traMADol (ULTRAM) 50 MG tabletIndicati ons:Acute Pain < 7 Day Supply,postop Take 1 tablet (50 mg total) by mouth every 6 (six) hours as needed for Pain. Indications: Acute Pain < 7 Day Supply, postop 28 tablet 08/23/20 24 Active clopidogrel (PLAVIX) 75 MG tablet Take 1 tablet (75 mg total) by mouth daily. 90 tablet 09/13/20 24 Active ubrogepant (UBRELVY) 100 MG tabletIndicati ons:Chronic migraine without aura without status migrainosus, not intractable Take 1 tablet (100 mg total) by mouth 2 (two) times daily as needed. Max of 2 tablets (200 mg) in 24 hours 16 tablet 11 10/05/19 25 Active atorvastatin (LIPITOR) 80 MG tablet TAKE ONE TABLET (80 MG TOTAL) BY MOUTH NIGHTLY AT BEDTIME. 90 tablet 10/25/19 25 Active nitroglycerin (NITROSTAT) 0.4 MG SL tablet DISSOLVE ONE UNDER THE TONGUE EVERY 5 MINUTES NEEDED FOR CHEST PAIN. IF PAIN PERSISTS AFTER 3 DOSES SEEK MEDICAL HELP 75 tablet 10/25/19 25 Active ranolazine ER (RANEXA) 500 MG 12 hr tablet Take 1 tablet (500 mg total) by mouth 2 (two) times daily. 180 tablet 1 11/05/19 25 Active nitroglycerin (NITROSTAT) 0.[address] 1 tablet (0.4 mg total) under the tongue every 5 (five) minutes as needed for Chest Pain. May use up to three doses, if a third dose is needed call 911. 25 tablet 3 10/30/19 24 025 Discontinued ranolazine ER (RANEXA) 500 MG 12 hr tablet Take 1 tablet (500 mg total) by mouth 2 (two) times daily. 180 tablet 1 05/03/20 24 025 Discontinued(R eorder) atorvastatin (LIPITOR) 80 MG tablet TAKE ONE TABLET (80 MG TOTAL) BY MOUTH NIGHTLY AT BEDTIME. 90 tablet 08/09/20 025 Discontinued Hospital, Clinic, or Other Facility Administered Medication Ordered Dose Route Frequency Start Date End Date Status triamcinolone acetonide (KENALOG-40) injection 40 mgIndications:Myofascial pain 40 mg IM Once 11/04/2024 11/05/2024 Ended lidocaine (XYLOCAINE) 2 % injection 2 mLIndications:Myofascial pain 2 mL Other Once 11/04/2024 11/05/2024 Ended Active Problems Problem Noted Date Diagnosed Date Disorder of shoulder 05/04/2024 Neck pain 05/04/2024 Type 2 diabetes mellitus wit h diabetic polyneuropathy ([facility]) 10/30/2023 Overview (05/04/2024): Last Assessment & Plan: Chronic problem. Currently taking Lyrica 75mg bid Reviewed foot care; needs to lotion daily. Aware to check feet nightly, not to go barefoot. Angina pectoris 01/03/2023 Palpitations 01/03/2023 Other fatigue 01/03/2023 TULIO on CPAP 01/03/2023 Abnormal thyroid function test 12/10/2022 Overview (05/04/2024): Last Assessment & Plan: Has been off methimazole since 12/12/22. Will repeat TFTs at next appt. TSH/T4 WNL 04/2023 but T3 remained elevated (but improved). Will update TFTs today. Verified that he uses [facility]. Aware to check results/results letter in [facility]. Will contact by phone if needed. Hyperthyroidism 11/25/2022 NSTEMI (non-ST elevated myoc ardial infarction) ([facility]) 09/16/2022 Coronary artery disease of n ative artery of [place] heart with stable angina pectoris 09/16/2022 Coronary stent patent 09/16/2022 OR (myocardial infarction) ([facility]) ACS (acute coronary syndrome) ([facility]) 09/05/2022 Sensorineural hearing loss (SNHL) of both ears 1 09/15/2021 Overview (05/04/2024): Last Assessment & Plan: Hearing test [facility] Will obtain MRI report from [facility] in [place] Have vision checked Hyperlipidemia associated wi th type 2 diabetes mellitus ([facility]) 05/22/2022 Overview (05/04/2024): Last Assessment & Plan: Chronic problem, currently taking atorvastatin 80mg daily & zetia 10mg. Last lipid panel: 07/30/23 LDL=77, TG=67. Dizziness and giddiness 04/15/2022 Overview (05/04/2024): Last Assessment & Plan: Hearing test [facility] Will obtain MRI report from [facility] in [place] Have vision checked Consider Vestibular rehab if no continued improvement Memory impairment 04/15/2022 Headache 03/15/2022 Restless sleeper 01/08/2022 Osteoarthritis of knee 12/07/2021 Post-traumatic osteoarthritis 12/07/2021 Hypertension 05/11/2019 Overview (05/04/2024): Last Assessment & Plan: Chronic problem. Controlled on current Lisinopril 5mg, metoprolol XL 25mg bid. Erectile dysfunction due to diseases classified elsewhere 09/11/2017 Overview (05/04/2024): Last Assessment & Plan: Restart sildenafil, 60 mg daily Low testosterone in male 09/11/2017 Overview (05/04/2024): Last Assessment & Plan: Chronic problem, no benefit with testosterone replacement so now off. Type 2 diabetes mellitus wit h hyperglycemia, without long-term current use of insulin ([facility]) 09/11/2017 Overview (05/04/2024): Last Assessment & Plan: Chronic problem, at goal. A1c stable/improved at 6.6%. Mounjaro 2.5mg weekly sent in to [facility] in [place]. If it is feasible; will send to [...] feet daily for skin breakdown and infection. Dyslipidemia 08/10/2017 Family history of heart disease 10/11/2015 Gastroesophageal reflux disease 10/11/2015 Encounters Date Type Department Care Team Description 11/05/2024 Telephone [facility] [place] [address] Bhupinder Rothman MD Surgical Clearance 11/05/2024 Telephone [facility] [place], [place] [id number] Bhupinder Rothman MD Refill Request (RANOLAZINE) 11/05/2024 MyChart Message Enc [facility]ty [facility] - [facility] [address], [address] [place] [address] Teri Marmolejo NP Ubrelvcynthia 11/04/2024 11:40 AM HYDRAULIC HAMMER OPERATOR Office [facility] [address], [address] [place] [phone] Anjel Flores MD Procedure (Trigger point/) 11/04/2024 Scan HEALTH INFO SRVCS Scanned, [facility] 11/04/2024 Travel 10/29/2024 Telephone [facility] [place] [address] Samaria Brown, TWILL CUTTER Information 10/27/2024 10:50 AM HYDRAULIC HAMMER OPERATOR - 10/27/2024 11:59 PM HYDRAULIC HAMMER OPERATOR Hospital Encounter [facility] [address] [place] [address] Rios Vang MD Discharge Disposition: Home or Self Care (Routine Discharge) 10/27/2024 Orders Only [facility] [address] [place] [address] Non-Staff, Provider 10/27/2024 Travel 10/26/2024 Orders Only [facility] [address] [place] [address] Non-Staff, Provider 10/14/2024 Abstract [facility] BUSINESS OFFICE [facility] [place] [address] Abstract, Doc [facility] 10/06/2024 Telephone [facility] [place] [facility] [address], [address] [place] [phone] Teri Marmolejo, TROY Prior Authorization (Ubrelvy) 10/05/2024 2:00 PM HYDRAULIC HAMMER OPERATOR [facility] [address], [address] [place] [phone] Teri Marmolejo NP Neuropathy (Follow up); Dizziness (Neck surgery helped balance/Still has some dizziness. ) 10/05/2024 9:07 AM HYDRAULIC HAMMER OPERATOR - 10/05/2024 11:59 PM HYDRAULIC HAMMER OPERATOR Hospital Encounter [facility] [place] [place] [address] Gus Campa MD Discharge Disposition: Home or Self Care (Routine Discharge) 10/05/2024 Travel 10/01/2024 2:11 PM HYDRAULIC HAMMER OPERATOR - 10/01/2024 11:59 PM HYDRAULIC HAMMER OPERATOR [place] [address] [place] [address] Bhupinder Rothman MD Discharge Disposition: Home or Self Care (Routine Discharge) 10/01/2024 1:00 PM HYDRAULIC HAMMER OPERATOR Office Visit [facility] [address] Bhupinder Rothman MD Coronary Artery Disease (6MO) 10/01/2024 Telephone [facility], [address] [address] Bhupinder Rothman MD Results 10/01/2024 Travel 09/13/2024 Telephone [facility], [address] [address] Bette Goel, [facility] Refill Request (Plavix/) 08/30/2024 10:46 AM HYDRAULIC HAMMER OPERATOR - 08/30/2024 11:59 PM HYDRAULIC HAMMER OPERATOR Hospital Encounter [facility] [address] [place] [address] Gideon Cortés MD Discharge Disposition: Home or Self Care (Routine Discharge) 08/30/2024 Orders Only [facility] [address] [place] [address] Gideon Cortés MD 08/23/2024 1:18 PM HYDRAULIC HAMMER OPERATOR Anesthesia Event [facility] [place] [address] Jacobo Garza MD [place], Samantha Rae, TELEMARKETING SUPERVISOR 08/23/2024 12:56 PM HYDRAULIC HAMMER OPERATOR - 08/23/2024 4:11 PM HYDRAULIC HAMMER OPERATOR [facility] [place] [address] Gus Campa MD CERVICAL 5-6 ANTERIOR CERVICAL DISCECTOMY AND FUSION 08/23/2024 9:29 AM HYDRAULIC HAMMER OPERATOR - 08/23/2024 6:00 PM HYDRAULIC HAMMER OPERATOR Hospital Encounter [facility] [place] [address] Gus Campa MD Discharge Disposition: Home or Self Care (Routine Discharge) 08/23/2024 Travel from Last 3 Months Family History Medical History Relation Comments Diabetes Father Heart Disease Father Hypertension Father Open Heart Father Stent Cardiac Father Cancer Maternal Aunt Cancer Maternal Grandmother Cancer Maternal Uncle 1 Cancer Maternal Uncle 2 Asthma Mother Heart Disease Mother Hypertension Mother Stent Cardiac Mother Cancer Paternal Aunt Relation Status Comments Father Alive Maternal Aunt Maternal Grandmother Maternal Uncle 1 Maternal Uncle 2 Mother Alive Paternal Aunt Social History Tobacco Use Types Packs/Day Years Used Date Smoking Tobacco: Never Passive Smoke Exposure: Never Smokeless Tobacco: Never Tobacco Cessation:Counseling Given: Yes Alcohol Use Standard Drinks/Week Comments Not Currently 0 (1 standard drink = 0.6 oz pur e alcohol) PHQ-2 Answer Date Recorded Patient Health Questionnaire-2 Score 0 04/01/2024 Sex and Gender Information Value Date Recorded Sex Assigned at Male 10/01/2024 2:09 PM HYDRAULIC HAMMER OPERATOR Legal Sex Male 8:03 AM CDT Gender Identity Not on file Sexual Orientation Not on file Occupation Industry Job Start Date Job End Date Elet[employer] Not on file Not on file Not on file Last Filed Vital Signs Vital Sign Reading Time Taken Comments Blood Pressure 117/83 11/04/2024 11:30 AM HYDRAULIC HAMMER OPERATOR Pulse 79 11/04/2024 11:30 AM HYDRAULIC HAMMER OPERATOR Temperature 36.6 C (97.8 F) 11/04/2024 11:30 AM HYDRAULIC HAMMER OPERATOR Respiratory Rate 17 08/23/2024 5:50 PM HYDRAULIC HAMMER OPERATOR Oxygen Saturation 97% 11/04/2024 11:30 AM HYDRAULIC HAMMER OPERATOR Inhaled Oxygen Concentration - - Weight 93.4 kg (206 lb) 11/04/2024 11:30 AM HYDRAULIC HAMMER OPERATOR Height 162.6 cm (5' 4 ) 11/04/2024 11:30 AM HYDRAULIC HAMMER OPERATOR Body Mass Index 35.36 11/04/2024 11:30 AM HYDRAULIC HAMMER OPERATOR Plan of Treatment Upcoming Encounters Date Type Department Care Team (Late st Contact Info) Description 01/04/2025 9:40 AM CDT Office Visit [facility] [address], [address] [place] [phone] Teri Marmolejo NP [address] [facility] [address] [place] [address] 02/10/2025 11:40 AM CDT Office Visit [facility] [address], [address] [place] [address] Anjel Flores MD [address] [place] [address] 04/01/2025 12:30 PM CDT Office Visit [facility] [address] Bhupinder Rothman MD [address] [facility] [address] [place] [phone] Health Maintenance Due Date Last Done Comments Colorectal Cancer Screening Colonoscopy (10 Years) 1969 Kidney Health Evaluation 1969 Annual Physical 1972 Pneumococcal Vaccine: Pediatrics (0 to 5 Years) and At-Risk Patients (6 to 64 Years) (1 of 2 - PCV) 1975 Diabetes: Retinopathy Eye Exam 1987 Hepatitis C 1987 DTaP, Tdap and Td Vaccines (1 - Tdap) 1988 Hepatitis B Vaccines (1 of 3 - 19+ 3-dose series) 1988 Zoster Vaccines (1 of 2) 2019 COVID-19 Vaccine (1 - season) 2024 Influenza Adult (#1) 2024 ASCVD LDL 07/30/2024 07/30/2023, 07/16, 07/11/2023, Additional history exists Lipid Panel 07/30/2024 07/30/2023, 07/16, 07/11/2023, Additional history exists PHQ-2 (Physician [place]) 09/15/2024 04/01/2024 Hemoglobin A1C 02/03/2025 08/06/2024, 07/30/2023 Meningococcal B Vaccine Aged Out No l onger eligible based on patient's age to complete this topic Meningococcal Vaccine Aged Out No isabella steven eligible based on patient's age to complete this topic RSV Immunizations Under 20 Months Aged Out No longer eligible based on patient's age to complete this topic Goals Goal Patient Goal Type Associated Problems Recent Progress Patient-Stated? Author Patient will return to prior living situation and remain independent in ADLs upon discharge from hospital Lifestyle No Joaquina Horner RN Medical Devices Implanted Type Area Nematologist Device Identifier Shelf Expiration Date Model / Serial / Lot Graft Bone I Factor 1cc Allograft Putty Syringe - [id number] Implanted:Qt y: 1 on 08/23/2024 by Gus Campa MD at [facility] Bone N/A: Spine Cervical [employer] [id number] 10/15/2026 700-010 / / [id number] Orthofix Implanted:Qt y: 1 on 08/23/2024 by Gus Campa MD at [facility] Cage N/A: Spine Cervical [id number] 04/08/2029 [id number] / / [id number] Zavation Plate Implanted:Qt y: 1 on 08/23/2024 by Gus Campa MD at [facility] Plate N/A: Spine Cervical 30-0114 / / Zavation Vsd Screw Implanted:Qt y: 4 on 08/23/2024 by Gus Campa MD at [facility] Screw N/A: Spine Cervical 31-4014 / / Tissue Surgiflo 8ml - [id number] Implanted:Qt y: 1 on 08/23/2024 by Gus Campa MD at [facility] Sealant N/A: Spine Cervical [employer] 07/15/2025 [id number] / / [id number] Explanted Type Area Nematologist Device Identifier Shelf Expiration Date Model / Serial / Lot Pin Distraction - [id number] Explanted:Qty: 2 on 08/23/2024 by Gus Campa MD at [facility] Screw N/A: Spine Cervical [employer] [id number] / / Procedures Procedure Name Priority Date/Time Associated Diagnosis Comments VITAMIN D, 25 OH Routine 10/27/2024 11:06 AM HYDRAULIC HAMMER OPERATOR Vitamin D deficiency XR CERV SPINE AP+LAT 2V Routine 10/05/2024 9:37 AM HYDRAULIC HAMMER OPERATOR Cervical myelopathy (CMS/HCC HHS/HCC) CTA CHEST STAT 10/01/2024 2:48 PM HYDRAULIC HAMMER OPERATOR SOB (shortness of breath) CREATININE WHOLE BLOOD Routine 10/01/2024 2:34 PM HYDRAULIC HAMMER OPERATOR SOB (shortness of breath) CBC W/DIFF AUTOMATED Routine 08/30/2024 10:10 AM HYDRAULIC HAMMER OPERATOR Elevated serum immunoglobulin free light chain level Leukocytosis (leucocytosis) COMPREHENSIVE METABOLIC PANEL Routine 08/30/2024 10:10 AM HYDRAULIC HAMMER OPERATOR Elevated serum immunoglobulin free light chain level Leukocytosis (leucocytosis) LDH, LACTATE DEHYDROGENASE Routine 08/30/2024 10:10 AM HYDRAULIC HAMMER OPERATOR Elevated serum immunoglobulin free light chain level Leukocytosis (leucocytosis) MAGNESIUM Routine 08/30/2024 10:10 AM HYDRAULIC HAMMER OPERATOR Elevated serum immunoglobulin free light chain level Leukocytosis (leucocytosis) PROTEIN, ELECTROPHORESIS Routine 08/30/2024 10:10 AM HYDRAULIC HAMMER OPERATOR Elevated serum immunoglobulin free light chain level Leukocytosis (leucocytosis) IMMUNOFIXATION Routine 08/30/2024 10:10 AM HYDRAULIC HAMMER OPERATOR Elevated serum immunoglobulin free light chain level Leukocytosis (leucocytosis) KAPPA LAMBDA FREE RATIO (QST) Routine 08/30/2024 10:10 AM HYDRAULIC HAMMER OPERATOR Elevated serum immunoglobulin free light chain level Leukocytosis (leucocytosis) IMMUNOGLOBULINS IGA IGG IGM Routine 08/30/2024 10:10 AM HYDRAULIC HAMMER OPERATOR Elevated serum immunoglobulin free light chain level Leukocytosis (leucocytosis) PROTEIN ELECTROPHORESIS URINE RANDOM Routine 08/30/2024 10:10 AM HYDRAULIC HAMMER OPERATOR Elevated serum immunoglobulin free light chain level Leukocytosis (leucocytosis) SURG XR CERV SPINE 1V Routine 08/23/2024 3:52 PM HYDRAULIC HAMMER OPERATOR POCT GLUCOSE - MARTINI DOCKED DEVICE Routine 08/23/2024 3:49 PM HYDRAULIC HAMMER OPERATOR ARTHRODESIS, ANTERIOR INTERBODY CERV BELOW C2 08/23/2024 1:18 PM HYDRAULIC HAMMER OPERATOR G95.9, M50.20- CERVICAL MYELOPATHY, CERVICAL DISC HERNIATION Case Notes SCHED BY FAX 08/09/24 [facility] PRETEST 08/18 0800 Special Needs FA, FLUORO, NEW AGE POCT GLUCOSE - MARTINI DOCKED DEVICE Routine 08/23/2024 10:59 AM HYDRAULIC HAMMER OPERATOR HEMOGLOBIN, GLYCOSYLATED Routine 08/06/2024 LIPID PANEL Routine 07/30/2023 9:51 AM HYDRAULIC HAMMER OPERATOR Diabetic polyneuropathy (CMS/HCC HHS/HCC) Obesity, diabetes, and hypertension syndrome (CMS/HCC HHS/HCC) Endocrine hypertension Diabetes mellitus associated with hormonal etiology (CMS/HCC HHS/HCC) Hyperlipidemia from Last 3 Months or Most Recently Relevant to Health Maintenance Results * VITAMIN D, 25 OH (10/27/2024 11:06 AM HYDRAULIC HAMMER OPERATOR) VITAMIN D 25 HYDROXY S/P/B 39 30 - 100 NG/ML 10/27/2024 12:24 PM HYDRAULIC HAMMER OPERATOR [facility] Comment: INTERPRETATION DEFICIENT <20 INSUFFICIENT 20-29 SUFFICIENT 30-100 10/27/2024 11:0 6 AM HYDRAULIC HAMMER OPERATOR us Provider Non-Staff LABORATORY Final Result [facility] [address] [place] [address], * XR CERV SPINE AP+LAT 2V (10/05/2024 9:37 AM HYDRAULIC HAMMER OPERATOR) Anatomical Region Laterality Modality Spine Radiographic Shelley ging 10/05/2024 10:2 5 AM HYDRAULIC HAMMER OPERATOR Impressions 10/05/2024 10:27 AM HYDRAULIC HAMMER OPERATOR ===== Impression: ===== 1. No acute osseous abnormalities 2. C5-6 anterior cervical fusion changes. Ordered By: GUS CAMPA Interpreted By: Hugo Aldana MD, 10/05/2024 10:25 AM Narrative 10/05/2024 10:27 AM HYDRAULIC HAMMER OPERATOR [address] [address] Examination: Cervical spine x-rays, AP and Lateral Exam Date/Time: 10/05/2024 9:10 AM Reason For Exam: Cervical myelopathy Comparison: No prior exam Technique: AP and Lateral views of the cervical spine were obtained Findings: No evidence of prevertebral soft tissue swelling. Minimal nonspecific reversal of normal cervical lordosis. Intact C5-6 anterior cervical fusion changes. C7-T1 relationship not well visualized secondary to shoulder attenuation on the lateral view. No visualized fracture or subluxation. Significant anterior vertebral body endplate spurring C3-4 and C4-5 levels. External opacity related to cervical collar. Procedure Note Hugo Aldana MD - 10/05/[address] [address] Examination: Cervical spine x-rays, AP and Lateral Exam Date/Time: 10/05/2024 9:10 AM Reason For Exam: Cervical myelopathy Comparison: No prior exam Technique: AP and Lateral views of the cervical spine were obtained Findings: No evidence of prevertebral soft tissue swelling. Minimalnonspecific reversal of normal cervical lordosis. Intact C5-6 anteriorcervical fusion changes. C7-T1 relationship not well visualized secondaryto shoulder attenuation on the lateral view. No visualized fracture orsubluxation. Significant anterior vertebral body endplate spurring C3-4and C4-5 levels. External opacity related to cervical collar. ===== Impression: ===== 1. No acute osseous abnormalities 2. C5-6 anterior cervical fusion changes. Ordered By: GUS CAMPA Interpreted By: Hugo Aldana MD, 10/05/2024 10:25 AM Gus Campa MD GENERAL IMAGING Final Result * CTA CHEST (10/01/2024 2:48 PM HYDRAULIC HAMMER OPERATOR) Anatomical Region Laterality Modality Chest Computed Tomogra phy 10/01/2024 3:01 PM HYDRAULIC HAMMER OPERATOR Impressions 10/01/2024 3:08 PM HYDRAULIC HAMMER OPERATOR Impression: 1. No evidence of acute pulmonary embolism nor right heart strain. No acute findings in the chest. 2. Severe coronary artery disease. Ordered By: BHUPINDER ROTHMAN Interpreted By: Viktor Aldana MD, 10/01/2024 3:01 PM Narrative 10/01/2024 3:08 PM HYDRAULIC HAMMER OPERATOR [facility] [address] [place] [address] Procedure: CTA Chest PE Protocol Comparison: None available. Indication: Shortness of breath. Chest pain. Technique: CTA imaging of the chest was performed with intravenous contrast, per pulmonary embolism protocol. Iodinated contrast was used due to the indications for the examination, to improve disease detection and to further define anatomy. Coronal and sagittal reformatted images were generated and reviewed. 3-D maximum intensity projection (MIP) reconstructions were performed of the chest to potentially increase study sensitivity. A dose lowering technique was utilized for this procedure which may include but is not limited to dose reduction techniques, automated exposure control, and/or the use of iterative reconstruction in accordance with ALARA principle. Findings: - Thoracic Vessels: Normal caliber of the thoracic aorta and main pulmonary artery. No suspicious filling defects identified to suggest acute pulmonary embolus. No evidence of right heart strain. Mild atherosclerotic plaque of the thoracic aorta. - Chest wall and Thoracic Inlet: No masses or lymphadenopathy. - Mediastinum and Irish: No masses or lymphadenopathy. Calcified mediastinal and right hilar lymph nodes as evidence of prior granulomatous disease. - Heart and Pericardium: Normal heart size. No pericardial effusion. Severe coronary artery calcifications. Coronary artery stents. - Lungs and Airways: Scattered calcified granulomatous disease. Mild bibasilar subsegmental atelectasis. - Pleura: No pleural effusions. - Upper Abdomen: No acute findings. Calcified splenic granulomata. Low- attenuation lesion within the posterior aspect of the spleen measuring 1.0 cm, favor benign etiology such as a cyst or hemangioma. This was also seen on prior CT abdomen pelvis 06/18/2024 and is not significantly changed. - Musculoskeletal: No aggressive appearing osseous lesions. Mild to moderate thoracic spondylosis. Procedure Note Viktor Aldana MD - 10/01/2024 [facility] [address] [place] [id number] Procedure: CTA Chest PE Protocol Comparison: None available. Indication: Shortness of breath. Chest pain. Technique: CTA imaging of the chest was performed with intravenouscontrast, per pulmonary embolism protocol. Iodinated contrast was used dueto the indications for the examination, to improve disease detection andto further define anatomy. Coronal and sagittal reformatted images weregenerated and reviewed. 3-D maximum intensity projection (MIP)reconstructions were performed of the chest to potentially increase studysensitivity. A dose lowering technique was utilized for this procedurewhich may include but is not limited to dose reduction techniques,automated exposure control, and/or the use of iterative reconstruction inaccordance with ALARA principle. Findings: - Thoracic Vessels: Normal caliber of the thoracic aorta and mainpulmonary artery. No suspicious filling defects identified to suggestacute pulmonary embolus. No evidence of right heart strain. Mildatherosclerotic plaque of the thoracic aorta. - Chest wall and Thoracic Inlet: No masses or lymphadenopathy. - Mediastinum and Irish: No masses or lymphadenopathy. Calcifiedmediastinal and right hilar lymph nodes as evidence of prior granulomatousdisease. - Heart and Pericardium: Normal heart size. No pericardial effusion.Severe coronary artery calcifications. Coronary artery stents. - Lungs and Airways: Scattered calcified granulomatous disease. Mildbibasilar subsegmental atelectasis. - Pleura: No pleural effusions. - Upper Abdomen: No acute findings. Calcified splenic granulomata.Low- attenuation lesion within the posterior aspect of the spleen measuring1.0 cm, favor benign etiology such as a cyst or hemangioma. This was alsoseen on prior CT abdomen pelvis 06/18/2024 and is not significantlychanged. - Musculoskeletal: No aggressive appearing osseous lesions. Mild tomoderate thoracic spondylosis. Impression: 1. No evidence of acute pulmonary embolism nor right heart strain. Noacute findings in the chest. 2. Severe coronary artery disease. Ordered By: BHUPINDER ROTHMAN Interpreted By: Viktor Aldana MD, 10/01/2024 3:01 PM us Bhupinder Rothman MD CT Final Result * CREATININE WHOLE BLOOD (Radiology only) (10/01/2024 2:34 PM HYDRAULIC HAMMER OPERATOR) CREATININE WHOLE BLOOD 1.1 0.6 - 1.2 MG/DL 10/01/2024 4:47 PM HYDRAULIC HAMMER OPERATOR [facility] 10/01/2024 2:34 PM HYDRAULIC HAMMER OPERATOR Bhupinder Rothman MD LABORATORY Final Result [facility] [address] [place] [address], [place] [phone] * (ABNORMAL) KAPPA LAMBDA FREE RATIO (QST) (08/30/2024 10:10 AM HYDRAULIC HAMMER OPERATOR) KAPPA FREE LIGHT CHAIN 20.0(H) 3.3 - 19.4 mg/L 09/01/2024 10:15 PM HYDRAULIC HAMMER OPERATOR [employer] THOMAS-Good EggsTI LLY LAMBDA FREE LIGHT CHAIN 14.8 5.7 - 26.3 mg/L 09/01/2024 10:15 PM HYDRAULIC HAMMER OPERATOR [employer] [facility] LLY KAPPA/LAMBDA FREE 1.35 0.26 - 1.65 09/01/2024 10:15 PM HYDRAULIC HAMMER OPERATOR [employer] [facility] THOMAS-Good EggsHERMELINDO LLY Comment: Free kappa/lambda ratio in serum of normal individuals is 0.26-1.65. Excess production of free kappa or lambda chains can alter the ratio. Monoclonal free light chains are found in the serum of patients with multiple myeloma, Waldenstrom's macroglobulinemia, mu-heavy chain disease, primary amyloidosis, light chain deposition disease, monoclonal gammopathy of undetermined significance, and lymphoproliferative disorders. Measurement of free light chain concen- tration in serum is useful for diagnosis, prognosis, monitoring disease activity and following response to therapy of these disorders. Test Performed by [employer], [facility], [address] [place], [place] Brian Villagran M.D., Ph.D., Director of Laboratories , [place] [id number] 08/30/2024 10:1 0 AM HYDRAULIC HAMMER OPERATOR Gideon Cortés MD LABORATORY Final Result [employer] [facility] [address] [place], [place] , [place] [phone] * PROTEIN ELECTROPHORESIS URINE RANDOM (08/30/2024 10:10 AM [facility]) Pathologist [facility] [place] PROTEIN URINE TOTAL RANDOM <5.0 <12.0 MG/DL 09/01/2024 12:43 PM [facility] INTERPRETATION THIS URINE PEP WAS INTERPRETED BY 09/02/2024 6:00 AM [facility] Comment: DR HAMMAD DIEZ NO SIGNIFICANT RANDOM PROTEINURIA. THERE IS A TRACE OF ALBUMIN ON ELECTROPHORESIS. BENCE ARECHIGA PROTEIN IS NOT DETECTED. URINE SPECIMEN / Unknown 08/30/2024 10:10 AM [facility] us Gideon Cortés MD URINE ORDERABLES Final Result [facility] [address] [place] [address], [id number] * (ABNORMAL) COMPREHENSIVE METABOLIC PANEL (08/30/2024 10:10 AM [facility]) [facility] GLUCOSE 127(H) 70 - 99 MG/DL 08/30/2024 11:53 AM [facility] BUN 17 7 - 18 MG/DL 08/30/2024 11:53 AM [facility] CREATININE S/P/B 0.94 0.50 - 1.20 MG/DL 08/30/2024 11:53 AM [facility] SODIUM S/P/B 134(L) 136 - 145 MMOL/L 08/30/2024 11:53 AM HYDRAULIC HAMMER OPERATOR [facility] POTASSIUM S/P/B 4.2 3.5 - 5.1 MMOL/L 08/30/2024 11:53 AM [facility] CHLORIDE S/P/B 99(L) 100 - 108 MMOL/L 08/30/2024 11:53 AM [facility] CO2 24.1 21.0 - 32.0 MMOL/L 08/30/2024 11:53 AM [facility] CALCIUM S/P/B 9.0 8.5 - 10.1 MG/DL 08/30/2024 11:53 AM [facility] BILIRUBIN TOTAL S/P/B 0.9 0.2 - 1.2 MG/DL 08/30/2024 11:53 AM [facility] Comment: THIS ASSAY IS NOT RECOMMENDED FOR PATIENTS UNDERGOING TREATMENT WITH ELTROMBOPAG DUE TO THE POTENTIAL FOR FALSELY ELEVATED RESULTS. TOTAL PROTEIN S/P/B 6.7 6.4 - 8.2 G/DL 08/30/2024 11:53 AM [facility] ALBUMIN S/P/B 3.5 3.4 - 5.0 G/DL 08/30/2024 11:53 AM [facility] AST 18 15 - 37 U/L 08/30/2024 11:53 AM [facility] ALT 44 16 - 60 U/L 08/30/2024 11:53 AM [facility] ALKALINE PHOSPHATASE S/P/B 94 50 - 136 U/L 08/30/2024 11:53 AM [facility] ANION GAP 10.9 5.0 - 15.0 MMOL/L 08/30/2024 11:53 AM [facility] BUN CREATININE RATIO 18.1 6 - 26 08/30/2024 11:53 AM [facility] A/G RATIO 1.1 1.0 - 2.5 RATIO 08/30/2024 11:53 AM [facility] GFR ESTIMATE >90 >90 ML/MIN/1.7 3 M2 08/30/2024 11:53 AM [facility] Comment: NOTE: eGFR is not calculated for patients <18 years of age. This is an estimated GFR calculation using the new CKD EPI creatinine equation without race and so does not require a correction factor for race. This estimated GFR should not be used for calculating drug doses. 08/30/2024 10:1 0 AM HYDRAULIC HAMMER OPERATOR Gideon Cortés MD LABORATORY Final Result [facility] [address] [place] [address], [place] * LDH, LACTATE DEHYDROGENASE (08/30/2024 10:10 AM HYDRAULIC HAMMER OPERATOR) Pathologist [facility] [place] LDH 125 87 - 241 UNITS/L 08/30/2024 7:42 PM HYDRAULIC HAMMER OPERATOR [facility] 08/30/2024 10:1 0 AM HYDRAULIC HAMMER OPERATOR Gideon Cortés MD LABORATORY Final Result Performing Organization Address [facility] de Phone Number [facility] [address] [place] [address], * IMMUNOFIXATION, SERUM (08/30/2024 10:10 AM HYDRAULIC HAMMER OPERATOR) [facility] IMMUNOFIXATION SERUM SEE PATHOLOGIST'S INTERPRETATION 09/01/2024 12:44 PM HYDRAULIC HAMMER OPERATOR [facility] IMMUNOFIX (SERUM) INTERPRETATION THIS SERUM IMMUNOTYPING WAS INTERPRETED BY 09/02/2024 5:59 AM [facility] Comment: DR HAMMAD DIEZ MONOCLONAL PROTEIN NOT IDENTIFIED 08/30/2024 10:1 0 AM HYDRAULIC HAMMER OPERATOR Gideon Cortés MD LABORATORY Final Result Performing Organization Address [facility] Co de Phone Number [facility] [address] [place] [address], [phone] * (ABNORMAL) CBC W/DIFF AUTOMATED (08/30/2024 10:10 AM HYDRAULIC HAMMER OPERATOR) Pathologist [facility] [place] WBC 12.84(H) 4.50 - 11.00 x10'3/uL 08/30/2024 11:15 AM HYDRAULIC HAMMER OPERATOR [facility] RBC 4.84 4.50 - 5.90 x10'6/uL 08/30/2024 11:15 AM HYDRAULIC HAMMER OPERATOR [facility] HGB 14.5 14.0 - 18.0 G/DL 08/30/2024 11:15 AM [facility] HCT 43.0 43.0 - 54.0 % 08/30/2024 11:15 AM [facility] MCV 88.8 80.0 - 100.0 FL 08/30/2024 11:15 AM [facility] MCH 30.0 26.0 - 34.0 PG 08/30/2024 11:15 AM [facility] MCHC 33.7 31.0 - 37.0 G/DL 08/30/2024 11:15 AM [facility] RDW 12.8 11.6 - 14.8 % 08/30/2024 11:15 AM [facility] PLT 314 130 - 400 x10'3/uL 08/30/2024 11:15 AM [facility] MPV 9.3 7.0 - 12.0 FL 08/30/2024 11:15 AM [facility] CBC COMMENT AUTOMATED RBC MORPHOLOGY AND PLATELET EVALUATION NORMAL 08/30/2024 11:15 AM [facility] NEUTROPHILS % 50.2 40.0 - 74.0 % 08/30/2024 11:15 AM [facility] LYMPHOCYTES % 36.6 14.0 - 46.0 % 08/30/2024 11:15 AM [facility] MONOCYTES % 9.6 4.0 - 13.0 % 08/30/2024 11:15 AM [facility] EOSINOPHILS 2.8 0.0 - 7.0 % 08/30/2024 11:15 AM [facility] BASOPHILS 0.5 0.0 - 3.0 % 08/30/2024 11:15 AM [facility] IMMATURE GRANS % 0.3 0.0 - 0.43 % 08/30/2024 11:15 AM [facility] NRBC % 0.0 % 08/30/2024 11:15 AM [facility]. NEUTROPHILS TOTAL 6.45 1.69 - 7.81 x10'3/uL 08/30/2024 11:15 AM [facility]. LYMPHOCYTES 4.70 0.21 - 5.42 x10'3/uL 08/30/2024 11:15 AM [facility] ABS. MONOCYTES 1.23 0.04 - 1.37 x10'3/uL 08/30/2024 11:15 AM [facility] ABS. EOSINOPHILS 0.36 0.00 - 0.68 x10'3/uL 08/30/2024 11:15 AM [facility] ABS. BASOPHILS 0.06 0.00 - 0.08 x10'3/uL 08/30/2024 11:15 AM [facility] ABS. IMMATURE GRANULOCYTES 0.04 0.00 - 0.06 x10'3/uL 08/30/2024 11:15 AM [facility] ABS. NUCLEATED RBC'S 0.00 0.00 - 0.01 x10'3/uL 08/30/2024 11:15 AM [facility] 08/30/2024 10:1 0 AM [facility] us Gideon Cortés MD LABORATORY Final Result [address] [place] [address], * PROTEIN, ELECTROPHORESIS (08/30/2024 10:10 AM HYDRAULIC HAMMER OPERATOR) TOTAL PROTEIN S/P/B 6.8 6.0 - 8.3 G/DL 09/01/2024 12:43 PM HYDRAULIC HAMMER OPERATOR [facility] ALBUMIN S/P/B 3.6 3.4 - 4.9 G/DL 09/01/2024 12:42 PM HYDRAULIC HAMMER OPERATOR [facility] [id number] S/P/B 0.4 0.2 - 0.4 G/DL 09/01/2024 12:42 PM HYDRAULIC HAMMER OPERATOR [facility] [id number] S/P/B 1.0 0.4 - 1.0 G/DL 09/01/2024 12:42 PM HYDRAULIC HAMMER OPERATOR [facility] BETA GLOBULIN S/P/B 1.1 0.5 - 1.2 G/DL 09/01/2024 12:42 PM HYDRAULIC HAMMER OPERATOR [facility] GAMMA GLOBULIN S/P/B 0.8 0.6 - 1.6 G/DL 09/01/2024 12:42 PM HYDRAULIC HAMMER OPERATOR [facility] ELECTROPHORESIS INTERPRETATION THIS SERUM PEP WAS INTERPRETED BY 09/02/2024 5:59 AM HYDRAULIC HAMMER OPERATOR [facility] Comment: DR HAMMAD DIEZ THE TOTAL SERUM PROTEIN IS NORMAL. ELECTROPHORESIS IDENTIFIES NO QUANTITATIVE ABNORMALITIES WITHIN THE PROTEIN FRACTIONS. MONOCLONAL PROTEINS ARE NOT DETECTED. 08/30/2024 10:1 0 AM HYDRAULIC HAMMER OPERATOR Gideon Cortés MD LABORATORY Final Result [facility] [address] [place] [address], [phone] * MAGNESIUM (08/30/2024 10:10 AM HYDRAULIC HAMMER OPERATOR) Pathologist [facility] MAGNESIUM 1.9 1.8 - 2.4 MG/DL 08/30/2024 11:53 AM HYDRAULIC HAMMER OPERATOR [facility] 08/30/2024 10:1 0 AM HYDRAULIC HAMMER OPERATOR Gideon Cortés MD LABORATORY Final Result [facility] [address] [place] [address] [place] [address], * (ABNORMAL) IMMUNOGLOBULINS IGA IGG IGM (08/30/2024 10:10 AM HYDRAULIC HAMMER OPERATOR) IGA 377(H) 47 - 310 mg/dL 09/02/2024 8:29 PM HYDRAULIC HAMMER OPERATOR [employer] ANDREI LY IGG 891 600 - 1,640 mg/dL 09/02/2024 8:29 PM HYDRAULIC HAMMER OPERATOR [employer] [facility] MARTHA-ROSASTIL LY IGM 40(L) 50 - 300 mg/dL 09/02/2024 8:29 PM HYDRAULIC HAMMER OPERATOR [employer] NEETAROSASTIL LY Comment: Test Performed by Jeanie Slaughter, [employer] [facility], [address] [place] [address] Brian Villagran M.D., Ph.D., Director of Laboratories , [place] [id number] 08/30/2024 10:1 0 AM HYDRAULIC HAMMER OPERATOR Gideon Cortés MD LABORATORY Final Result [employer] [address] [phone], * SURG XR CERV SPINE 1V (08/23/2024 3:52 PM HYDRAULIC HAMMER OPERATOR) Anatomical Region Laterality Modality Spine Radiographic Shelley ging 08/23/2024 4:26 PM HYDRAULIC HAMMER OPERATOR Impressions 08/23/2024 4:31 PM HYDRAULIC HAMMER OPERATOR DISCUSSION / IMPRESSION: Intraoperative fluoroscopy provided for reported performance of C5-C6 anterior cervical discectomy and fusion. Fluoroscopy time: 20.9 seconds. Recorded radiation exposure: Cumulative Air Kerma 5.6 mGy, total dose area product 1.1 Gycm2. Images acquired for the study: 4 No radiologist interpretation of this study. Refer to surgical report for details. Ordered By: GUS CAMPA Interpreted By: Cody Armas, 08/23/2024 4:26 PM Narrative 08/23/2024 4:31 PM HYDRAULIC HAMMER OPERATOR [address] [address] IMAGING STUDIES: SURG XR CERV SPINE 1V DATE: 08/23/2024 12:18 PM HISTORY: intra op 54-year-old male. MRI with C5-6 right herniated nucleus pulposus causing severe central canal stenosis and severe right C6 foraminal stenosis. Cervical myelopathy. COMPARISON: None at this institution. Procedure Note Cody Armas MD - 08/23/2024 [facility] [address] [place], [place] [address] IMAGING STUDIES: SURG XR CERV SPINE 1VDATE: 08/23/2024 12:18 PM HISTORY: intra op 54-year-old male. MRI with C5-6 right herniatednucleus pulposus causing severe central canal stenosis and severe right [id number] stenosis. Cervical myelopathy. COMPARISON: None at this institution. DISCUSSION / IMPRESSION: Intraoperative fluoroscopy provided for reported performance of C5-Y9zecdnrac cervical discectomy and fusion. Fluoroscopy time: 20.9 seconds. Recorded radiation exposure: CumulativeAir Kerma 5.6 mGy, total dose area product 1.1 Gycm2. Images acquired for the study: 4 No radiologist interpretation of this study. Refer to surgical report fordetails. Ordered By: GUS CAMPA Interpreted By: Cody Armas, 08/23/2024 4:26 PM Gus Campa MD IMAGES ONLY Final Result * (ABNORMAL) POCT glucose (08/23/2024 3:49 PM HYDRAULIC HAMMER OPERATOR) Only the most recent of2 resultswithin the time period is included. GLUCOSE POC 122(H) 70 - 99 mg/dL 08/23/2024 3:51 PM HYDRAULIC HAMMER OPERATOR [facility] 08/23/2024 3:49 PM HYDRAULIC HAMMER OPERATOR Gsu Campa MD POCT ORDERABLES - DEVICE Fin al Result [facility] [address] [place] [address], [place] [phone] * HEMOGLOBIN, GLYCOSYLATED (08/06/2024) HGB A1C 6.3 % 08/06/2024 [facility] LABORATORY Final Res ult * (ABNORMAL) LIPID PANEL (07/30/2023 9:51 AM HYDRAULIC HAMMER OPERATOR) CHOLESTEROL 129 <200.0 MG/DL 07/30/2023 11:14 AM [facility] TRIGLYCERIDES 67 <150 MG/DL 07/30/2023 11:14 AM [facility] HDL 39(L) >40.0 MG/DL 07/30/2023 11:14 AM [facility] LDL (CALCULATED) 77 <100 MG/DL 07/30/20 11:14 AM [facility] NON HDL CHOLESTEROL 90 <130 MG/DL 07/30 11:14 AM [facility] CHOL/HDL RATIO 3.3 0.0 - 4.5 07/30/2023 11:14 AM [facility] VLDL CALCULATION 13 5 - 55 MG/DL 07/30/2023 11:14 AM [facility] LIPID INTERPRETATION 07/30/2023 11:14 AM [facility] Comment: [facility] CONCENSUS REPORT RECOMMENDATIONS: ADULT CHILD LOW RISK: CHOLESTEROL <200 <170 TRIGLYCERIDE <150 --- HDL >=60 --- LDL <100 <110 BORDERLINE: CHOLESTEROL 200-239 170-199 TRIGLYCERIDE 150-199 --- HDL 40-59 --- LDL 100-159 110-129 HIGH RISK: CHOLESTEROL >=240 >=200 TRIGLYCERIDE >=200 --- HDL <40 --- LDL >=160 >=130 07/30/2023 9:51 AM HYDRAULIC HAMMER OPERATOR us Jenni Choi FOR[employer]OUNTANT LABORATORY Final Resu lt [facility] [address] [place] [address], from Last 3 Months or Most Recently Relevant to Health Maintenance Insurance [employer] Advance Directives * Full Code (Latest Code Status on File) Date Activated Date Inactivated Comments 09/06/2022 1:34 PM 09/07/2022 2:16 PM * DNR Date Activated Date Inactivated Comments 09/05/2022 11:44 PM 09/06/2022 1:34 PM Care Teams Basting Marker Relationship Specialty Start Date End Date Rios Vang MD [address] [phone] PCP - General INTERNAL MEDICINE 10/25/21 Bhupinder Rothman MD [address] [phone] Consulting Physician CARDIOVASCULAR DISEASE 08/18/24 Shaunna Guillermo MD [address] [place] [address], [address] Medical Office [address] [place] [address] INTERNAL MEDICINE HEMATOLOGY & ONCOLOGY 08/18/24
--- OUTSIDE RECORDS SUMMARY | 2024-11-17 01:14 | XMS_ITS | Encounter Summary ---
Author Organization [facility] Address Formerly [facility] [place] [address] Care Team Providers Care Track Greaser Name Role Phone Rios Vang MD Primary Care Provider [phone] Camden Perez MD Unavailable [phone] Shaunna Guillermo MD Unavailable Encounter Details Date Type Department Care Team (Late st Contact Info) Description 11/05/2024 Alectorhart Message Enc [facility] Multispecialty Care - [facility] 3 [facility], [address] [place] [phone] Teri Marmolejo, TROY [address] Health system [address] [place] [address] [employer] Social History Tobacco Use Types Packs/Day Years Used Date Smoking Tobacco: Never Passive Smoke Exposure: Never Smokeless Tobacco: Never Alcohol Use Standard Drinks/Week Comments Not Currently 0 (1 standard drink = 0.6 oz pur e alcohol) PHQ-2 Answer Date Recorded Patient Health Questionnaire-2 Score 0 04/01/2024 Sex and Gender Information Value Date Recorded Sex Assigned at Male 10/01/2024 2:09 PM MECHANICAL CAD DRAFTER Legal Sex Male 8:03 AM CDT Gender Identity Not on file Sexual Orientation Not on file Occupation Industry Job Start Date Job End Date [employer] Not on file Not on file Not on file documented as of this encounter Functional Status * RETIRED Are you deaf or do you have serious difficulty hearing Answer Date of Assessment Author Status No 09/06/2022 1:00 AM MECHANICAL CAD DRAFTER Activ e * RETIRED Are you blind or do you have serious difficulty seeing, even when wearing glasses? Answer Date of Assessment Author Status No 09/06/2022 1:00 AM MECHANICAL CAD DRAFTER Activ e * Do you have serious [...] Description 01/04/2025 9:40 AM CDT Office Visit [facility] - [address], [address] [place] [phone] Teri Marmolejo NP [address] [place] [address] [address] [place] [address] 02/10/2025 11:40 AM CDT Office Visit [facility] - [address], [address] [place] [phone] Anjel Flores MD [address] [place] [address] 04/01/2025 12:30 PM CDT Office Visit [facility]-[address] [phone] Camden Perez MD [address] [phone] documented as of this encounter Goals Goal Patient Goal Type Associated Problems Recent Progress Patient-Stated? Author Patient will return to prior living situation and remain independent in ADLs upon discharge from hospital Lifestyle No Joaquina Horner, RN documented as of this encounter Visit Diagnoses Not on filedocumented in this encounter Care Teams Track Greaser Relationship Specialty Start Date End Date Rios Vang MD [address] [phone] PCP - General INTERNAL MEDICINE 10/25/21 Camden Perez MD [address] [phone] Consulting Physician CARDIOVASCULAR DISEASE 08/18/24 Shaunna Guillermo MD [address] [place] [address] [address] [place] [address] INTERNAL MEDICINE HEMATOLOGY & ONCOLOGY 08/18/24 documented as of this encounter
--- OUTSIDE RECORDS SUMMARY | 2024-11-17 01:14 | XMS_ITS | Encounter Summary ---
Author Organization [facility] Address [facility] [place] [address] Care Team Providers Care Histology Technician Name Role Phone Rios Vang MD Primary Care Provider [phone] Camden Perez MD Unavailable [phone] Shaunna Guillermo MD Unavailable [phone] Encounter Details Date Type Department Care Team (Late st Contact Info) Description 05/11/2024 Butterfleye Inchart Message Enc [facility] Medical Group Multispecialty Care - [address], [address] [place] [phone] Mycdriss, [facility] Provider EEG reults Social History Tobacco Use Types Packs/Day Years Used Date Smoking Tobacco: Never Smokeless Tobacco: Never Alcohol Use Standard Drinks/Week Comments Not Currently 0 (1 standard drink = 0.6 oz pur e alcohol) PHQ-2 Answer Date Recorded Patient Health Questionnaire-2 Score 0 04/01/2024 Sex and Gender Information Value Date Recorded Sex Assigned at Male 10/01/2024 2:09 PM BROKER ASSISTANT Legal Sex Male 8:03 AM CDT Gender Identity Not on file Sexual Orientation Not on file 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 Answer Date of Assessment Author Status No 09/06/2022 1:00 AM BROKER ASSISTANT Activ e * Do you have serious [...] Description 01/04/2025 9:40 AM CDT [facility] - [address], [address] [place] [phone] Teri Marmolejo NP [address] [place] [address] [place] [address] 02/10/2025 11:40 AM CDT [facility] [address] [facility], [address] [place] [phone] Anjel Flores MD [address] [place] [address] 04/01/2025 12:30 PM CDT Office Visit [facility]-[address] [phone] Camden Perez MD [address] [address] documented as of this encounter Goals Goal Patient Goal Type Associated Problems Recent Progress Patient-Stated? Author Patient will return to prior living situation and remain independent in ADLs upon discharge from hospital Lifestyle No Joaquina Horner, RN documented as of this encounter Visit Diagnoses Not on filedocumented in this encounter Care Teams Histology Technician Relationship Specialty Start Date End Date Rios Vang MD [address] [phone] PCP - General INTERNAL MEDICINE 10/25/21 Camden ePrez MD [address] [address] Consulting Physician CARDIOVASCULAR DISEASE 08/18/24 Shaunna Guillermo MD [address] [place] [address] [address] [place] [address] INTERNAL MEDICINE HEMATOLOGY & ONCOLOGY 08/18/24 documented as of this encounter
--- OUTSIDE RECORDS SUMMARY | 2024-11-17 01:14 | XMS_ITS | CONTINUITY OF CARE DOCUMENT ---
Author Name cordell, cordell Address Unknown Organization [facility] Address [address] [facility] [address] [place] [address] Phone [phone] Care Team Providers Care Featheredge Machine Operator Name Role Phone Elly BARAJAS, Santosh Unavailable RETA CONSTANTINO MD Unavailable RETA CONSTANTINO MD Unavailable PROBLEMS Condition Status Date Provider Notes Chest pain active Adina Duffy Other symptoms involving car diovascular system active Santosh Sanabria MD HTN borderline active Santosh Sanabria MD Abnormal electrocardiogram active Santosh corrales MD FAMILY HISTORY OF HEART DISEASE active Rufus Sanabria MD GERD-esophageal reflux active Santosh Sanabria MD Palpitations active Santosh Sanabria MD Diabetes, Type 2 active Santosh Sanabria MD Hyperlipidemia active Santosh Sanabria MD Hypertension active Santosh Sanabria MD CAD (coronary artery disease) active Santosh Sanabria MD Coronary Heart Disease active Santosh Sanabria MD ENCOUNTERS Date Type Provider Location Encounter Diag nosis - In-person encounter Office Visit Santosh Sanabria MD [facility] Coronary Heart Disease - In-person encounter Office Visit Santosh Sanabria MD [facility] CAD (coronary artery disease) - In-person encounter Office Visit Santosh Sanabria MD [facility] Office - In-person encounter Office Visit Santosh Sanabria MD [facility] - In-person encounter Office Visit Santosh Sanabria MD [facility] Office - In-person encounter Office Visit Santosh Sanabria MD [facility] - In-person encounter Office Visit Santosh Sanabria MD [facility] Diabetes, Type 2HyperlipidemiaHypertension - In-person encounter Office Visit Santosh Sanabria MD [facility] Other symptoms involving cardiovascular systemHTN borderlineAbnormal electrocardiogramFAMILY HISTORY OF HEART DISEASEGERD-esophageal refluxPalpitations VITAL SIGNS Date Observation Value Provider Body Mass Index (Ratio) 35.94 kg/m2 Rufus Sanabria MD pulse rate 51 /min Deb Almeida respiratory rate E&M 18 /min Deb Almeida oxygen saturation, oximetry 98 % Deb Almeida blood pressure, cuff size regular nupur Elle blood pressure, diastolic 76 mm[Hg] nupur Almeida blood pressure, systolic 135 mm[Hg] She mariia Elle weight E&M 216 [lb_av] Deb Almeida height E&M 65 [in_i] Deb Almeida Body Mass Index (Ratio) 36.11 kg/m2 Rufus Sanabria MD blood pressure, diastolic 79 mm[Hg] St court Beth blood pressure, systolic 115 mm[Hg] Wild Beth oxygen saturation, oximetry 96 % Emani Beth pulse rate 61 /min Emani Beth respiratory rate E&M 18 /min Emani kemp weight E&M 217 [lb_av] Emani Beth height E&M 65 [in_i] Emani Kirit Body Mass Index (Ratio) 34.94 kg/m2 Rufus Sanabria MD blood pressure, cuff size large Ke rri Priti blood pressure, diastolic 81 mm[Hg] Ke rri Brandenuenesilver blood pressure, systolic 124 mm[Hg] Judi ri Priti oxygen saturation, oximetry 96 % Adrianne Priti respiratory rate E&M 16 /min Adrianne G danielenesilver pulse rate 66 /min Adrianne Kirsten dwyerer weight E&M 210 [lb_av] Adrianne Kirsten dwyerer height E&M 65 [in_i] Adrianne Kirsten dwyer Body Mass Index (Ratio) 37.94 kg/m2 Rufus Sanabria MD blood pressure, diastolic 78 mm[Hg] Joi Parker blood pressure, systolic 146 mm[Hg] Ant Parker oxygen saturation, oximetry 97 % Nancy Parker pulse rate 70 /min Nancy caballero weight E&M 228 [lb_av] Nancy caballero respiratory rate E&M 16 /min Caroline Parker blood pressure, cuff size large Joi Parker height E&M 65 [in_i] Nancy caballero Body Mass Index (Ratio) 38.27 kg/m2 Rufus Sanabria MD blood pressure, diastolic 104 mm[Hg] Te leslie Roca blood pressure, systolic 163 mm[Hg] Ter david Roca oxygen saturation, oximetry 99 % Valerie Roca respiratory rate E&M 15 /min Valerie haro weight E&M 230 [lb_av] Valerie Abelino Body Mass Index (Ratio) 38.27 kg/m2 Rufus Sanabria MD blood pressure, diastolic 80 mm[Hg] Cy alexandrea Cervantes blood pressure, systolic 156 mm[Hg] Brittany Cervantes blood pressure, cuff size regular Cy alexandrea Cervantes oxygen saturation, oximetry 96 % Beckie Cervantes pulse rate 110 /min Beckie hardin respiratory rate E&M 16 /min Beckie Cervantes weight E&M 230 [lb_av] Beckie Rivera l height E&M 65 [in_i] Beckie Rivera l Body Mass Index (Ratio) 40.60 kg/m2 Rufus Sanabria MD weight E&M 244 [lb_av] Margarita leone blood pressure, cuff size large Cr maria del rosario Soto blood pressure, diastolic 90 mm[Hg] Cr maria del rosario Soto blood pressure, systolic 130 mm[Hg] Cry stawilfred Soto oxygen saturation, oximetry 97 % Margarita Soto respiratory rate E&M 17 /min Margarita Soto pulse rate 92 /min Margarita leone height E&M 65 [in_i] Margarita leone blood pressure, diastolic 93 mm[Hg] Lorenzo Tee blood pressure, systolic 149 mm[Hg] Angelica Tee pulse rate 81 /min Mack umanzor oxygen saturation, oximetry 98 % Mack Tee respiratory rate E&M 16 /min Jonathan Tee Body Mass Index (Ratio) 44.33 kg/m2 Teressa Tee weight E&M 266.4 [lb_av] Mack velasquez height E&M 65 [in_i] Mack umanzor ALLERGIES Allergy Name Onset Date Reaction Criticality Status BRILINTA High Criticality active HISTORY OF MEDICATION USE Medication Status Instructions Dates Provider Indications Com ments lisinopril 5 mg tablet active TAKE 1 TABLET BY MOUTH EVERY DAY Adams-Nervine Asylumyamilka clopidogrel 75 mg tablet active TAKE 1 TABLET BY MOUTH EVERY DAY [facility] atorvastatin 80 mg tablet active Take 1 tablet by mouth once a day TAKE 1 TABLET BY MOUTH NIGHTLY AT BEDTIME. Santosh Sanabria MD clopidogrel 75 mg tablet completed Take 1 tablet by mouth once a day TAKE ONE TABLET BY MOUTH DAILY - Adams-Nervine Asylumyamilka Farxiga 10 mg tablet active Take 1 tablet by mouth once a day TAKE 1 TABLET BY MOUTH EVERY DAY Santosh Sanabria MD lisinopril 5 mg tablet completed Take 1 tablet by mouth once a day TAKE 1 TABLET (5 MG TOTAL) BY MOUTH DAILY. - Ivette Borjaspayamilka metoprolol tartrate 25 mg tablet active Take 1 tablet by mouth twice a day TAKE 1 TABLET BY MOUTH TWICE A DAY Santosh Sanabria MD metoprolol tartrate 25 mg tablet completed TAKE 1 TABLET BY MOUTH TWICE A DAY - Santosh Sanabria MD diclofenac sodium 75 mg tablet,delayed release (DR/EC) completed TAKE 1 TABLET BY MOUTH TWICE A DAY WITH MEALS - Santosh Sanabria MD aspirin 81 mg tablet,chewable active CHEW 1 TABLET BY MOUTH DAILY. Adrianne aMrcos lisinopril 5 mg tablet completed TAKE 1 TABLET (5 MG TOTAL) BY MOUTH DAILY. - Santosh Sanabria MD atorvastatin 80 mg tablet completed TAKE 1 TABLET BY MOUTH NIGHTLY AT BEDTIME. - Santosh Sanabria MD nitroglycerin 0.4 mg tablet, sublingual active PLACE 1 TABLET UNDER THE TONGUE EVERY 5 MINUTES NEEDED FOR CHEST PAIN. 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 Santosh Sanabria MD social history reviewed E&M revi ewed - no changes required Santosh Sanabria MD seatbelt usage 100 % Emanisuellen Beth caffeine use, averag e drinks per day 2 /d Emanisuellen Beth passive cigarette sm yasir exposure no Emani Beth chewing tobacco use Never Emani Jayden german smoking status Never smoker Emani Beth seatbelt usage 100 % Adrianne carranza caffeine use, averag e drinks per day 2 /d Adrianne Marcos passive cigarette sm yasir exposure no Adrianne Marcos chewing tobacco use Never Adrianne oliver smoking status Never smoker Adrianne carranza social history E&M Marital Statu s: Estella nice: 2 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 Santosh Sanabria MD social history reviewed E&M revi ewed - no changes required Santosh Sanabria MD smoking status Never smoker Margarita Guallpa ams alcohol counseling no Santosh corrales MD alcohol use, type social Santosh weller MD alcohol use yes Santosh Caballero passive cigarette sm yasir exposure no Santosh Sanabria MD social history E&M Marital Statu s: Estella nice: 2 O ccupation: mei Sanabria MD social history reviewed E&M revi ewed - no changes required Santosh Sanabria MD smoking status Never smoker Mack Camp FAMILY HISTORY Family Member Condition Father [place] male <55 Mother [place] female <65 Father Family History of Di abetes: Mother Family History of Co ronary Artery Disease: INSURANCE PROVIDERS Payer name Policy type / Coverage type [place] [employer] party ID [employer] [id number] ADVANCE DIRECTIVES Name Date DISCUSSED - NO DECISION MADE TREATMENT PLAN Date Name Performer [id number],S, Santosh matias MD [id number],S, Santosh matias MD [id number],S, Santosh matias MD [id number],S, Santosh matias MD [id number],S,S /P OK with 2 stents. S till not feeling well. Having chest tightness and SOB. S tress test was normal. M ay be idiosyncratic reaction to medication. Will stop metoprolol and see if improves. Santosh Sanabria MD [id number],B, Santosh matias MD [id number],S, Santosh matias MD [id number],S, Santosh matias MD [id number],C,S till having CP that has anginal component. N eeds stress myoview as his stent is in circ and this area is very often ECG silent on stress test. Santosh Sanabria MD [id number],S, Santosh matias MD [id number],S, Santosh matias MD [id number],S, Santosh matias MD [id number],S, Santosh matias MD [id number],B, Santosh matias MD [id number],B, Santosh matias MD [id number],S, Santosh matias MD [id number],S, Santosh matias MD [id number],S, Santosh matias MD [id number],W, Santosh matias MD [id number],S,Needs stress cardiolite Santosh Sanabria MD Cardiology Santosh Sanabria MD Cardiology Santosh Sanabria MD Cardiology Santosh Sanabria MD Cardiology Santosh Saanbria MD Cardiology:S/P OK wi th 2 stents. S till not feeling well. Having chest tightness and SOB. S tress test was normal. M ay be idiosyncratic reaction to medication. Will stop metoprolol and see if improves. Santosh Sanabria MD Cardiology Santosh Sanabria MD Cardiology Santosh Sanabria MD Cardiology Santosh Sanabria MD Cardiology:Still hav ing CP that has anginal component. N eeds stress myoview as his stent is in circ and this area is very often ECG silent on stress test. Santosh Sanabria MD Cardiology Santosh Sanabria MD Cardiology Santosh Sanabria MD Cardiology Santosh Sanabria MD Cardiology Santosh Sanabria MD Cardiology Santosh Sanabria MD Cardiology Santosh Sanabria MD Cardiology Santosh Sanabria MD Cardiology Santosh Sanabria MD Cardiology Santosh Sanabria MD Cardiology Santosh Sanabria MD Cardiology:Needs stress cardioli te Santosh Sanabria MD Cardiology follow up Santosh squires MD Cardiology follow up Santosh squires MD Cardiology follow up Santosh squires MD Cardiology follow up Santosh squires MD Cardiology follow up Santosh squires MD Cardiology Santosh Sanabria MD Cardiology Santosh Sanabria MD Cardiology Santosh Sanabria MD Cardiology Santosh Sanabria MD Cardiology Santosh Sanabria MD Cardiology Santosh Sanabria MD Cardiology Santosh Sanabria MD Cardiology Santosh Sanabria MD Cardiology Santosh Sanabria MD Date Name HEMOGLOBIN A1c LIPID PANEL CRP, high sensitivit y PROBNP, N TERMINAL BASIC METABOLIC PANE L W/EGFR Stress Exercise Card iolite Stress Exercise Card iolite Complete Echo Stress Exercise Card iolite Carotid Duplex Bilat eral Complete Echo STR - Nuclear Complete Echo HISTORY OF PROCEDURES Procedure Date Procedure Name Provider Procedure Notes S tatus EKG Santosh Sanabria MD complete d EKG Santosh Sanabria MD complete d Cardiolite, 2 units Santosh Sanabria MD completed SPECT Images Santosh Sanabria MD comple adrinaa Stress EKG Santosh Sanabria MD complete d EKG Santosh Sanabria MD complete d Stress EKG Santosh Sanabria MD complete d Cardiolite, 2 units Santosh Snaabria MD completed SPECT Images Nolan Markham MD complet ed SNOMED-CT: [id number] Current Medications Documented Santosh Sanabria MD completed
--- OUTSIDE RECORDS SUMMARY | 2024-11-17 01:14 | XMS_ITS | Encounter Summary ---
Author Organization [facility] Address [facility] [place] [address] Care Team Providers Care Sales And Leasing Agent Name Role Phone Rios Vang MD Primary Care Provider [phone] Camden Perez MD Unavailable [phone] Shaunna Guillermo MD Unavailable [phone] Encounter Details Date Type Department Care Team (Late st Contact Info) Description 05/04/2024 3D Data Message Enc [facility] Multispecialty Care - [address], [address] [place] [phone] Dusty, 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 Answer Date of Assessment Author Status No 09/06/2022 1:00 AM SUPERVISOR BRAIDING Activ e * Do you have serious [...] Description 01/04/2025 9:40 AM CDT Office Visit [facility] - [address], [address] [place] [phone] Teri Marmolejo NP [address] [place] [address] [place] [address] 02/10/2025 11:40 AM CDT Office Visit [facility] [address] [facility], [address] [place] [phone] Anjel Flores MD [address] [place] [address] 04/01/2025 12:30 PM CDT Office Visit [facility]-[address] [phone] Camden Perez MD [address] [address] documented as of this encounter Goals Goal Patient Goal Type Associated Problems Recent Progress Patient-Stated? Author Patient will return to prior living situation and remain independent in ADLs upon discharge from hospital Lifestyle No Joaquina Horner, RN documented as of this encounter Visit Diagnoses Not on filedocumented in this encounter Care Teams Sales And Leasing Agent Relationship Specialty Start Date End Date Rios Vang MD [address] [phone] PCP - General INTERNAL MEDICINE 10/25/21 Camden Perez MD [address] [phone] Consulting Physician CARDIOVASCULAR DISEASE 08/18/24 Shaunna Guillermo MD [address] [place] [address], [facility] [address] [place] [address] INTERNAL MEDICINE HEMATOLOGY & ONCOLOGY 08/18/24 documented as of this encounter
--- OUTSIDE RECORDS SUMMARY | 2024-11-17 01:14 | XMS_ITS | Data Portability ---
Author Organization [facility] Myrna RODRIGUEZ Address [address] [facility] [place] [address] Care Team Providers Care [employer] Athletic Director Name Role Phone RETA VANG Primary Care Provider [phone] Assessment Encounter Date Assessment Date Assessment LastModified by Organization Details LastModified Time 12/25/2023 12/25/2023 Continue current therapy blood work for biochemical management of disease processes and medications obtain old records. Targets for blood pressure LDL and A1c discussed [email or web address] Not available 01/12/2024 21:44:23 04/29/2024 04/29/2024 vitamin-D level was low on blood work ordered by Cardiology we will put him on vitamin-D protocol as far as his chronic anginal type symptoms I know that they have tried the ranolazine with limited success. 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 They are working through some issues neurologically as well and he has had an MRI MRV nerve conduction test and he will be following up with them he will see me back in 4 months [email or web address] Not available 04/29/2024 21:26:34 07/12/2024 07/12/2024 CT scan done by GI for a splenic lesion did show thickening of the bladder we will go ahead and get that evaluated by Urology. Obesity healthy lifestyle care instructions. Diabetes continue current therapy. Splenic lesion he will need that followed up by GI. He needs a screening colonoscopy that was discussed as well. He would like to have a provider closer to home. Dyslipidemia continue current therapy CAD secondary preventative measures discussed for CAD. He was advised to stay up-to-date on all screenings and immunizations. He will see me back in about 3 months. [email or web address] Not available 07/12/2024 21:33:47 10/14/2024 10/14/2024 blood pressure i s well controlled. Healthy lifestyle care instructions to help with losing weight. Continue current therapy [email or web address] Not available 10/16/2024 16:54:39 Plan of Treatment Reminders Order Date Submit Date Provider Last Modified By Organization Details Last Modified Time Details Appointments ANY 15 2024 10:15A Gini Vang MD Not available Not available Not available Lab vitami n D, 25-hyd ladonna, total, serum 2023 024 [facility] Not available 06/29/2024 13:57:16 PSA, total, serum or plasma 2023 024 [facility], [address], [address], [place], [address], 03/26/2024 16:09:36 vitami n D, 25-hyd ladonna, total, serum 2023 024 [facility], [address], [place], [address], 03/26/2024 16:09:36 HbA1c (hemog lobin A1c), blood 2023 024 [facility], [address], [address], [place], [address], 03/26/2024 16:09:36 CBC w/ auto diff 2023 024 [facility], [address], [address], [place], [address], 02/12/2024 22:22:29 CMP, serum or plasma 2023 024 [facility], [address], [address], [place], [address], 03/26/2024 16:09:36 lipid panel, serum 2023 024 [facility], [address] [facility] [address], [address], [place], [address], 03/26/2024 16:09:36 T3, free, serum or plasma 2023 024 [facility], [address] [facility] [address], [address], [place], [address], 03/26/2024 16:09:36 TSH, ultra- sensit dejah, serum 2023 024 [facility], [address] [facility] [address], [address], [place], [address], 03/26/2024 16:09:36 unlist ed lab - T4, free 2023 024 [facility], [address] [facility] [address], [address], [place], [address], 03/26/2024 16:09:37 Referral urolog ist referr al 2023 024 [facility] [address], [place], [address], 11/05/2024 11:22:55 Procedures None record ed. Surgeries None record ed. Imaging None record ed. Medication Orders ergoca lcifer ol (vitam in D2) 1,250 mcg (50,00 0 unit) capsul e 2023 024 [email or web address] [facility] #[id number], [address], [place], [address], 04/29/2024 13:15:51 Patient TargetsNo targets recorded. Patient Instructions Encounter Date Encounter Id Patient Instructions Last Modified By Organization Details Last Modified Time 07/12/2024 [id number] A healthy lifestyle: care instructions [email or web address] Not available 07/12/2024 14:34:13 10/14/2024 [id number] A healthy lifestyle: care instructions [email or web address] Not available 10/14/2024 13:03:11 Reason for Referral Urologist Referral for Disor ke of urinary bladder Referring Physician: Reta Vang, Internal Medicine, Encounter Date: 07/12/2024 Results Created Date Observation Date Name Description Value Unit Range Abnormal Flag Note LastModifiedBy Organization Detail LastModifiedTime 02/12/20 24 02/12/2024 Hemog lobin A1c/H emogl obin. total in Blood by HPLC hemoglobin A1C/hemoglob in.total in blood high HA1C Not Available Not Available 12/2024 15:49:02 02/12/20 24 02/12/2024 Prost ate speci fic Ag [Mass /volu me] in Serum or Plasm a PSA medicare screen PSA medic are scree n Not Available Not Available 11/16/2024 15:49:02 02/12/20 24 02/12/2024 Thyro tropi n [Unit s/vol ume] in Serum or Plasm a thyroid-stim ulating hormone thyro id-st imula ting hormo ne Not Available Not Available 11/16/2024 15:49:02 02/12/20 24 02/12/2024 25-hy droxy vitam in D3 [Mass /volu me] in Serum or Plasm a [id number] low vd25o h Not Available Not Available 11/16/2024 15:49:02 02/12/20 24 02/12/2024 Thyro xine (T4) free [Mass /volu me] in Serum or Plasm a free T4 free T4 Not Available Not Available 11/16/2024 15:49:02 02/12/20 24 02/12/2024 Triio dothy sesar e (T3) Free [Mass /volu me] in Serum or Plasm a free T3 high free T3 Not Available Not Available 11/16/2024 15:49:02 02/12/20 24 02/12/2024 Lipid 1996 panel - Serum or Plasm a cholesterol low liset stero l Not Available Not Available 11/16/2024 15:49:02 02/12/20 24 02/12/2024 Lipid 1996 panel - Serum or Plasm a triglyceride s trigl yceri brandon Not Available Not Available 11/16/2024 15:49:02 02/12/20 24 02/12/2024 Lipid 1996 panel - Serum or Plasm a HDL cholesterol low HDL liset stero l Not Available Not Available 11/16/2024 15:49:02 02/12/20 24 02/12/2024 Lipid 1995 panel - Serum or Plasm a LDL cholesterol, calculated LDL liset stero l, calcu lated Not Available Not Available 11/16/2024 15:49:02 02/12/20 24 02/12/2024 Compr ehens dejah metab olic 1999 panel - Serum or Plasm a sodium low sodiu m Not Available Not Available 11/16/2024 15:49:02 02/12/20 24 02/12/2024 Compr ehens dejah metab olic 2000 panel - Serum or Plasm a potassium potas sium Not Available Not Available 11/16/2024 15:49:02 02/12/20 24 02/12/2024 Compr ehens dejah metab olic 2000 panel - Serum or Plasm a chloride chlor ebenezer Not Available Not Available 11/16/2024 15:49:02 02/12/20 24 02/12/2024 Compr ehens dejah metab olic 2000 panel - Serum or Plasm a carbon dioxide carbo n dioxi de Not Available Not Available 11/16/2024 15:49:02 02/12/20 24 02/12/2024 Compr ehens dejah metab olic 2000 panel - Serum or Plasm a anion gap low anion gap Not Available Not Available 11/16/2024 15:49:02 02/12/20 24 02/12/2024 Compr ehens dejah metab olic 2000 panel - Serum or Plasm a glucose high gluco se Not Available Not Available 11/16/2024 15:49:02 02/12/20 24 02/12/2024 Compr ehens dejah metab olic 2000 panel - Serum or Plasm a BUN BUN Not Available Not Availa ble 11/16/2024 15:49:02 02/12/20 24 02/12/2024 Compr ehens dejah metab olic 2000 panel - Serum or Plasm a creatinine creat inine Not Available Not Available 11/16/2024 15:49:02 02/12/20 24 02/12/2024 Compr ehens dejah metab olic 1999 panel - Serum or Plasm a GFR >60 GFR Not Available Not Availa ble 11/16/2024 15:49:02 02/12/20 24 02/12/2024 Compr ehens dejah metab olic 2000 panel - Serum or Plasm a alkaline phosphatase alkal ine phosp hatas e Not Available Not Available 11/16/2024 15:49:02 02/12/20 24 02/12/2024 Compr ehens dejah metab olic 2000 panel - Serum or Plasm a alanine aminotransfe rase katherine ne amino trans feras e Not Available Not Available 11/16/2024 15:49:02 02/12/20 24 02/12/2024 Compr ehens dejah metab olic 2000 panel - Serum or Plasm a aspartate aminotransfe rase aspar rodgers amino trans feras e Not Available Not Available 11/16/2024 15:49:02 02/12/20 24 02/12/2024 Compr ehens dejah metab olic 2000 panel - Serum or Plasm a bilirubin, total bilir ubin, total Not Available Not Available 11/16/2024 15:49:02 02/12/20 24 02/12/2024 Compr ehens dejah metab olic 1999 panel - Serum or Plasm a calcium calci um Not Available Not Available 11/16/2024 15:49:02 02/12/20 24 02/12/2024 Compr ehens dejah metab olic 2000 panel - Serum or Plasm a total protein total prote in Not Available Not Available 11/16/2024 15:49:02 02/12/20 24 02/12/2024 Compr ehens dejah metab olic 2000 panel - Serum or Plasm a albumin album in Not Available Not Available 11/16/2024 15:49:02 02/12/20 24 02/12/2024 Compr ehens dejah metab olic 2000 panel - Serum or Plasm a globulin globu zoila Not Available Not Available 11/16/2024 15:49:02 02/12/20 24 02/12/2024 Compr ehens dejah metab olic 2000 panel - Serum or Plasm a A/G ratio A/G ratio Not Available Not Available 11/16/2024 15:49:02 02/12/20 24 02/12/2024 CBC W Auto Diffe renti al panel - Blood white blood cells white blood cells Not Available Not Available 11/16/2024 15:49:02 02/12/20 24 02/12/2024 CBC W Auto Diffe renti al panel - Blood red blood cells red blood cells Not Available Not Available 11/16/2024 15:49:02 02/12/20 24 02/12/2024 CBC W Auto Diffe renti al panel - Blood hemoglobin hemog lobin Not Available Not Available 11/16/2024 15:49:02 02/12/20 24 02/12/2024 CBC W Auto Diffe renti al panel - Blood hematocrit hemat ocrit Not Available Not Available 11/16/2024 15:49:02 02/12/20 24 02/12/2024 CBC W Auto Diffe renti al panel - Blood mean red cell volume mean red cell volum e Not Available Not Available 11/16/2024 15:49:02 02/12/20 24 02/12/2024 CBC W Auto Diffe renti al panel - Blood mean red cell hemoglobin mean red cell hemog lobin Not Available Not Available 11/16/2024 15:49:02 02/12/20 24 02/12/2024 CBC W Auto Diffe renti al panel - Blood mean RBC HGB concentratio n mean RBC HGB jean paul ntrat ion Not Available Not Available 11/16/2024 15:49:02 02/12/20 24 02/12/2024 CBC W Auto Diffe renti al panel - Blood red cell distribution width red cell distr ibuti on width Not Available Not Available 11/16/2024 15:49:02 02/12/20 24 02/12/2024 CBC W Auto Diffe renti al panel - Blood platelets plate lets Not Available Not Available 11/16/2024 15:49:02 02/12/20 24 02/12/2024 CBC W Auto Diffe renti al panel - Blood mean platelet volume mean plate let volum e Not Available Not Available 11/16/2024 15:49:02 02/12/20 24 02/12/2024 CBC W Auto Diffe renti al panel - Blood neutrophils neutr ophil s Not Available Not Available 11/16/2024 15:49:02 02/12/20 24 02/12/2024 CBC W Auto Diffe renti al panel - Blood lymphocytes lymph ocyte s Not Available Not Available 11/16/2024 15:49:02 02/12/20 24 02/12/2024 CBC W Auto Diffe renti al panel - Blood monocytes monoc ytes Not Available Not Available 11/16/2024 15:49:02 02/12/20 24 02/12/2024 CBC W Auto Diffe renti al panel - Blood eosinophils eosin ophil s Not Available Not Available 11/16/2024 15:49:02 02/12/20 24 02/12/2024 CBC W Auto Diffe renti al panel - Blood basophils basop hils Not Available Not Available 11/16/2024 15:49:02 02/12/20 24 02/12/2024 CBC W Auto Diffe renti al panel - Blood immature granulocytes immat ure granu locyt es Not Available Not Available 11/16/2024 15:49:02 02/12/20 24 02/12/2024 CBC W Auto Diffe renti al panel - Blood neutrophils, absolute count neutr ophil s, absol [place] count Not Available Not Available 11/16/2024 15:49:02 02/12/20 24 02/12/2024 CBC W Auto Diffe renti al panel - Blood lymphocytes, absolute count high lymph ocyte s, absol [place] count Not Available Not Available 11/16/2024 15:49:02 02/12/20 24 02/12/2024 CBC W Auto Diffe renti al panel - Blood monocytes, absolute count monoc ytes, absol [place] count Not Available Not Available 11/16/2024 15:49:02 02/12/20 24 02/12/2024 CBC W Auto Diffe renti al panel - Blood eosinophils, absolute count eosin ophil s, absol [place] count Not Available Not Available 11/16/2024 15:49:02 02/12/20 24 02/12/2024 CBC W Auto Diffe renti al panel - Blood basophils, absolute count basop hils, absol [place] count Not Available Not Available 11/16/2024 15:49:02 02/12/20 24 02/12/2024 CBC W Auto Diffe renti al panel - Blood immature granulocytes ,absolute immat ure granu locyt es,ab solut e Not Available Not Available 11/16/2024 15:49:02 02/12/20 24 02/12/2024 CBC W Auto Diffe renti al panel - Blood nucleated red blood cells nucle ated red blood cells Not Available Not Available 11/16/2024 15:49:02 02/12/20 24 02/12/2024 CBC W Auto Diffe renti al panel - Blood NRBC# NRBC# Not Available Not Availa ble 11/16/2024 15:49:02 08/06/20 24 08/06/2024 Hemog lobin A1c/H emogl obin. total in Blood hemoglobin A1C, POC 6.3 % low: 4%high : 5.6% Hemog lobin A1C, POC 6.3 4.0 - 5.6 % Not Available Not Available 10/26/2024 11:48:23 08/06/20 24 08/06/2024 Hemog lobin A1c/H emogl obin. total in Blood interpretati on and review of laboratory results Abnorm al Not Available Not Available 11:48:23 08/06/20 24 08/06/2024 Hemog lobin A1c/H emogl obin. total in Blood hemoglobin A1C/hemoglob in.total in blood 6.3 % HGB A1C 6.3 % Not Available Not Available 10/26/2024 11:48:38 08/18/20 24 08/23/2024 Blood type and Indir ect antib jermain scree n panel - Blood ABO and Rh group panel - blood O POSITI VE ABO/R H O POSIT DEJAH 08/18 11:06 AM DIRECT CARE WORKER [facility] Not Available Not Available 10/26/2024 11:48:38 08/18/20 24 08/23/2024 Blood type and Indir ect antib ejrmain scree n panel - Blood blood group antibody screen [presence] in serum or plasma NEGATI VE ANTIB JERMAIN SCREE N NEGAT DEJAH 08/18 11:06 AM [facility] Not Available Not Available 10/26/2024 11:48:38 08/18/20 24 08/23/2024 Blood type and Indir ect antib jermain scree n panel - Blood specimen expiration date of blood 2023,2 359 SAMPL E EXPIR ATION 08/26 ,2359 08/23 11:28 AM [facility] CARE [facility] Not Available Not Available 10/26/2024 11:48:38 08/18/20 24 08/23/2024 Blood type and Indir ect antib jermain scree n panel - Blood blood bank comment NO HISTOR Y OF TRANSF USIONS ,PREGN CATHIE OR ANTIBO DIES, NEW SPECIM EN NOT NEEDED BB COMME NT NO HISTO RY OF TRANS FUSIO NS,VT EGNAN CY OR ANTIB ODIES , NEW SPECI MEN NOT NEEDE D 08/23 11:28 AM [facility] Not Available Not Available 10/26/2024 11:48:38 08/18/20 24 08/18/2024 aPTT in Plate let poor plasm a by Coagu latio n assay APTT in platelet poor plasma by coagulation assay 32.6 text: 25.1 - 36.5 sec PTT 32.6 25.1 - 36.5 SEC 08/18 9:37 AM [facility] Not Available Not Available 10/26/2024 11:48:38 08/18/20 24 08/18/2024 Proth rombi n time (PT) prothrombin time (PT) 11.3 text: 10.2 - 12.9 sec PROTI ME 11.3 10.2 - 12.9 SEC 08/18 9:37 AM [facility] Not Available Not Available 10/26/2024 11:48:37 08/18/20 24 08/18/2024 Proth rombi n time (PT) INR in platelet poor plasma by coagulation assay 1 INR 1.0 08/18 9:37 AM [facility] Not Available Not Available 10/26/2024 11:48:37 08/18/20 24 08/18/2024 Basic metab olic 2000 panel - Serum or Plasm a glucose [mass/volume ] in serum or plasma 123 text: 70 - 99 mg/dL high GLUCO SE 123 (H) 70 - 99 MG/DL 08/18 9:35 AM [facility] Not Available Not Available 10/26/2024 11:48:37 08/18/20 24 08/18/2024 Basic metab olic 1999 panel - Serum or Plasm a urea nitrogen [mass/volume ] in serum or plasma 13 text: 7 - 18 mg/dL BUN 13 7 - 18 MG/DL 08/18 9:35 AM [facility] Not Available Not Available 10/26/2024 11:48:37 08/18/20 24 08/18/2024 Basic metab olic 1999 panel - Serum or Plasm a creatinine [mass/volume ] in serum or plasma 0.94 text: 0.7 - 1.3 mg/dL CREAT ININE S/P/B 0.94 0.7 - 1.3 MG/DL 08/18 9:35 AM [facility] Not Available Not Available 10/26/2024 11:48:37 08/18/20 24 08/18/2024 Basic metab olic 1999 panel - Serum or Plasm a sodium [moles/volum e] in serum or plasma 136 text: 136 - 145 mmol/L SODIU M S/P/B 136 136 - 145 MMOL/ L 08/18 9:35 AM [facility] Not Available Not Available 10/26/2024 11:48:37 08/18/20 24 08/18/2024 Basic metab olic 1999 panel - Serum or Plasm a potassium [moles/volum e] in serum or plasma 4.1 text: 3.5 - 5.1 mmol/L POTAS SIUM S/P/B 4.1 3.5 - 5.1 MMOL/ L 08/18 9:35 AM [facility] Not Available Not Available 10/26/2024 11:48:37 08/18/20 24 08/18/2024 Basic metab olic 1999 panel - Serum or Plasm a chloride [moles/volum e] in serum or plasma 106 text: 97 - 115 mmol/L CHLOR EBENEZER S/P/B 106 97 - 115 MMOL/ L 08/18 9:35 AM [facility] Not Available Not Available 10/26/2024 11:48:37 08/18/20 24 08/18/2024 Basic metab olic 1999 panel - Serum or Plasm a carbon dioxide, total [moles/volum e] in serum or plasma 27.6 text: 21 - 32 mmol/L CO2 27.6 21 - 32 MMOL/ L 08/18 9:35 AM [facility] Not Available Not Available 10/26/2024 11:48:37 08/18/20 24 08/18/2024 Basic metab olic 1999 panel - Serum or Plasm a calcium [mass/volume ] in serum or plasma 9.1 text: 8.5 - 10.1 mg/dL CALCI UM S/P/B 9.1 8.5 - 10.1 MG/DL 08/18 9:35 AM [facility] Not Available Not Available 10/26/2024 11:48:37 08/18/20 24 08/18/2024 Basic metab olic 2000 panel - Serum or Plasm a anion gap in serum or plasma 2.4 text: 2 - 10 mmol/L ANION GAP 2.4 2 - 10 MMOL/ L 08/18 9:35 AM [facility] Not Available Not Available 10/26/2024 11:48:37 08/18/20 24 08/18/2024 Basic metab olic 2000 panel - Serum or Plasm a urea nitrogen/cre atinine [mass ratio] in serum or plasma 13.8 low: 6high: 26 BUN CREAT ININE RATIO 13.8 6 - 26 08/18 9:35 AM [facility] Not Available Not Available 10/26/2024 11:48:37 08/18/20 24 08/18/2024 Basic metab olic 2000 panel - Serum or Plasm a glomerular filtration rate/1.73 sq M.predicted [volume rate/area] in serum, plasma or blood by creatinine-b ased formula (CKD-epi 2020) text: >90 mL/min /1.73 M2 GFR ESTIM ATE >90 >90 ML/AR N/1.7 3 M2 08/18 9:35 AM DIRECT CARE WORKER [facility] Not Available Not Available 10/26/2024 11:48:37 08/18/20 24 08/18/2024 Basic metab olic 1999 panel - Serum or Plasm a interpretati on and review of laboratory results Abnorm al Not Available Not Available 11:48:37 08/23/20 24 08/23/2024 Gluco se [Mass /volu me] in Blood by Autom ated test strip glucose [mass/volume ] in blood by automated test strip 122 mg/dL low: 70mg/d Lhigh: 99mg/d L high GLUCO SE POC 122 (H) 70 - 99 mg/dL 08/23 3:51 PM DIRECT CARE WORKER [facility] Not Available Not Available 10/26/2024 11:48:38 08/23/20 24 08/23/2024 Gluco se [Mass /volu me] in Blood by Autom ated test strip interpretati on and review of laboratory results Abnorm al Not Available Not Available 11:48:38 08/30/20 24 09/01/2024 Waka light chain s.derrick e/Ulrich bda light chain s.derrick e [Mass Ratio ] in Serum kappa light chains.free [mass/volume ] in serum 20 mg/L low: 3.3mg/ Lhigh: 19.4mg /L high KAPPA FREE LIGHT CHAIN 20.0 (H) 3.3 - 19.4 mg/L 09/01 10:15 PM DIRECT CARE WORKER [facility] Not Available Not Available 10/26/2024 11:48:38 08/30/20 24 09/01/2024 Waka light chain s.derrick e/Ulrich bda light chain s.derrick e [Mass Ratio ] in Serum lambda light chains.free [mass/volume ] in serum or plasma 14.8 mg/L low: 5.7mg/ Lhigh: 26.3mg /L LAMBD A FREE LIGHT CHAIN 14.8 5.7 - 26.3 mg/L 09/01 10:15 PM DIRECT CARE WORKER [facility]-CH ANTIL LY Not Available Not Available 10/26/2024 11:48:38 08/30/20 24 09/01/2024 Waka light chain s.derrick e/Ulrich bda light chain s.derrick e [Mass Ratio ] in Serum kappa light chains.free/ lambda light chains.free [mass ratio] in serum 1.35 low: 0.26hi gh: 1.65 KAPPA /SUAREZ DA FREE 1.35 0.26 - 1.65 09/01 10:15 PM DIRECT CARE WORKER [facility]-CH ANTIL LY Not Available Not Available 10/26/2024 11:48:38 08/30/20 24 09/01/2024 Waka light chain s.derrick e/Ulrich bda light chain s.derrick e [Mass Ratio ] in Serum interpretati on and review of laboratory results Abnorm al Not Available Not Available 11:48:38 08/30/20 24 09/02/2024 Prote in elect [facility] panel - Urine protein [presence] in urine by automated test strip text: <12.0 mg/dL PROTE IN URINE TOTAL RANDO M <5.0 <12.0 MG/DL 09/01 12:43 PM DIRECT CARE WORKER [facility] Not Available Not Available 10/26/2024 11:48:38 08/30/20 24 09/02/2024 Prote in elect [facility] panel - Urine interpretati on and review of laboratory results THIS URINE PEP WAS INTERP RETED BY INTER PRETA TION THIS URINE PEP WAS INTER PRETE D BY 09/02 6:00 AM DIRECT CARE WORKER [facility] Not Available Not Available 10/26/2024 11:48:38 08/30/20 24 08/30/2024 Compr ehens dejah metab olic 2000 panel - Serum or Plasm a glucose [mass/volume ] in serum or plasma 127 text: 70 - 99 mg/dL high GLUCO SE 127 (H) 70 - 99 MG/DL 08/30 11:53 AM DIRECT CARE WORKER [facility] Not Available Not Available 10/26/2024 11:48:37 08/30/20 24 08/30/2024 Compr ehens dejah metab olic 1999 panel - Serum or Plasm a urea nitrogen [mass/volume ] in serum or plasma 17 text: 7 - 18 mg/dL BUN 17 7 - 18 MG/DL 08/30 11:53 AM DIRECT CARE WORKER [facility] Not Available Not Available 10/26/2024 11:48:37 08/30/20 24 08/30/2024 Compr ehens dejah metab olic 1999 panel - Serum or Plasm a creatinine [mass/volume ] in serum or plasma 0.94 text: 0.50 - 1.20 mg/dL CREAT ININE S/P/B 0.94 0.50 - 1.20 MG/DL 08/30 11:53 AM DIRECT CARE WORKER [facility] Not Available Not Available 10/26/2024 11:48:37 08/30/20 24 08/30/2024 Compr ehens dejah metab olic 1999 panel - Serum or Plasm a sodium [moles/volum e] in serum or plasma 134 text: 136 - 145 mmol/L low SODIU M S/P/B 134 (L) 136 - 145 MMOL/ L 08/30 11:53 AM DIRECT CARE WORKER [facility] Not Available Not Available 10/26/2024 11:48:37 08/30/20 24 08/30/2024 Compr ehens dejah metab olic 1999 panel - Serum or Plasm a potassium [moles/volum e] in serum or plasma 4.2 text: 3.5 - 5.1 mmol/L POTAS SIUM S/P/B 4.2 3.5 - 5.1 MMOL/ L 08/30 11:53 AM DIRECT CARE WORKER [facility] Not Available Not Available 10/26/2024 11:48:37 08/30/20 24 08/30/2024 Compr ehens dejah metab olic 2000 panel - Serum or Plasm a chloride [moles/volum e] in serum or plasma 99 text: 100 - 108 mmol/L low CHLOR EBENEZER S/P/B 99 (L) 100 - 108 MMOL/ L 08/30 11:53 AM DIRECT CARE WORKER [facility] Not Available Not Available 10/26/2024 11:48:37 08/30/20 24 08/30/2024 Compr NAVXens dejah metab olic 1999 panel - Serum or Plasm a carbon dioxide, total [moles/volum e] in serum or plasma 24.1 text: 21.0 - 32.0 mmol/L CO2 24.1 21.0 - 32.0 MMOL/ L 08/30 11:53 AM DIRECT CARE WORKER [facility] Not Available Not Available 10/26/2024 11:48:37 08/30/20 24 08/30/2024 Compr NAVXens dejah metab olic 2000 panel - Serum or Plasm a calcium [mass/volume ] in serum or plasma 9 text: 8.5 - 10.1 mg/dL CALCI UM S/P/B 9.0 8.5 - 10.1 MG/DL 08/30 11:53 AM DIRECT CARE WORKER [facility] Not Available Not Available 10/26/2024 11:48:37 08/30/20 24 08/30/2024 Compr NAVXens dejah metab olic 1999 panel - Serum or Plasm a bilirubin.to balwinder [mass/volume ] in serum or plasma 0.9 text: 0.2 - 1.2 mg/dL BILIR UBIN TOTAL S/P/B 0.9 0.2 - 1.2 MG/DL 08/30 11:53 AM DIRECT CARE WORKER [facility] Not Available Not Available 10/26/2024 11:48:37 08/30/20 24 08/30/2024 Compr NAVXens dejah metab olic 2000 panel - Serum or Plasm a protein [mass/volume ] in serum or plasma 6.7 text: 6.4 - 8.2 g/dL TOTAL PROTE IN S/P/B 6.7 6.4 - 8.2 G/DL 08/30 11:53 AM DIRECT CARE WORKER [facility] Not Available Not Available 10/26/2024 11:48:37 08/30/20 24 08/30/2024 Compr ehens dejah metab olic 1999 panel - Serum or Plasm a albumin [mass/volume ] in serum or plasma 3.5 text: 3.4 - 5.0 g/dL ALBUM IN S/P/B 3.5 3.4 - 5.0 G/DL 08/30 11:53 AM DIRECT CARE WORKER [facility] Not Available Not Available 10/26/2024 11:48:37 08/30/20 24 08/30/2024 Compr ehens dejah metab olic 1999 panel - Serum or Plasm a aspartate aminotransfe rase [enzymatic activity/vol ume] in serum or plasma 18 U/L low: 15U/Lh igh: 37U/L AST 18 15 - 37 U/L 08/30 11:53 AM DIRECT CARE WORKER [facility] Not Available Not Available 10/26/2024 11:48:37 08/30/20 24 08/30/2024 Compr ehens dejah metab olic 1999 panel - Serum or Plasm a alanine aminotransfe rase [enzymatic activity/vol ume] in serum or plasma 44 U/L low: 16U/Lh igh: 60U/L ALT 44 16 - 60 U/L 08/30 11:53 AM DIRECT CARE WORKER [facility] Not Available Not Available 10/26/2024 11:48:37 08/30/20 24 08/30/2024 Compr ehens dejah metab olic 1999 panel - Serum or Plasm a alkaline phosphatase [enzymatic activity/vol ume] in serum or plasma 94 U/L low: 50U/Lh igh: 136U/L ALKAL INE PHOSP HATAS E S/P/B 94 50 - 136 U/L 08/30 11:53 AM DIRECT CARE WORKER [facility] Not Available Not Available 10/26/2024 11:48:37 08/30/20 24 08/30/2024 Compr ehens dejah metab olic 2000 panel - Serum or Plasm a anion gap in serum or plasma 10.9 text: 5.0 - 15.0 mmol/L ANION GAP 10.9 5.0 - 15.0 MMOL/ L 08/30 11:53 AM DIRECT CARE WORKER [facility] Not Available Not Available 10/26/2024 11:48:37 08/30/20 24 08/30/2024 Compr ehens dejah metab olic 1999 panel - Serum or Plasm a urea nitrogen/cre atinine [mass ratio] in serum or plasma 18.1 low: 6high: 26 BUN CREAT ININE RATIO 18.1 6 - 26 08/30 11:53 AM DIRECT CARE WORKER [facility] Not Available Not Available 10/26/2024 11:48:37 08/30/20 24 08/30/2024 Compr ehens dejah metab olic 2000 panel - Serum or Plasm a albumin/glob ulin [mass ratio] in serum or plasma 1.1 text: 1.0 - 2.5 ratio A/G RATIO 1.1 1.0 - 2.5 RATIO 08/30 11:53 AM DIRECT CARE WORKER [facility] Not Available Not Available 10/26/2024 11:48:37 08/30/20 24 08/30/2024 Compr ehens dejah metab olic 2000 panel - Serum or Plasm a glomerular filtration rate/1.73 sq M.predicted [volume rate/area] in serum, plasma or blood by creatinine-b ased formula (CKD-epi 2020) text: >90 mL/min /1.73 M2 GFR ESTIM ATE >90 >90 ML/AR N/1.7 3 M2 08/30 11:53 AM DIRECT CARE WORKER [facility] Not Available Not Available 10/26/2024 11:48:37 08/30/20 24 08/30/2024 Compr ehens dejah metab olic 2000 panel - Serum or Plasm a interpretati on and review of laboratory results Abnorm al Not Available Not Available 11:48:37 08/30/20 24 08/30/2024 LDH, LACTA TE DEHYD ROGEN ASE LDH 125 text: 87 - 241 units/ L LDH 125 87 - 241 UNITS /L 08/30 7:42 PM DIRECT CARE WORKER [facility] Not Available Not Available 10/26/2024 11:48:37 08/30/20 24 09/02/2024 IMMUN OFIXA TION, SERUM immunofixati on for serum or plasma SEE PATHOL OGIST' S INTERP RETATI ON IMMUN OFIXA TION SERUM SEE PATHO LOGIS T'S INTER PRETA TION 09/01 12:44 PM DIRECT CARE WORKER [facility] Not Available Not Available 10/26/2024 11:48:37 08/30/20 24 09/02/2024 IMMUN OFIXA TION, SERUM immunofix (serum) interpretati on THIS SERUM IMMUNO TYPING WAS INTERP RETED BY IMMUN OFIX (SERU M) INTER PRETA TION THIS SERUM IMMUN OTYPI NG WAS INTER PRETE D BY 09/02 5:59 AM DIRECT CARE WORKER [facility] Not Available Not Available 10/26/2024 11:48:37 08/30/20 24 08/30/2024 CBC W Auto Diffe renti al panel - Blood leukocytes [#/volume] in blood by automated count 12.84 text: 4.50 - 11.00 x10'3/ uL high WBC 12.84 (H) 4.50 - 11.00 x10'3 /uL 08/30 11:15 AM DIRECT CARE WORKER [facility] Not Available Not Available 10/26/2024 11:48:37 08/30/20 24 08/30/2024 CBC W Auto Diffe renti al panel - Blood erythrocytes [#/volume] in blood by automated count 4.84 text: 4.50 - 5.90 x10'6/ uL RBC 4.84 4.50 - 5.90 x10'6 /uL 08/30 11:15 AM DIRECT CARE WORKER [facility] Not Available Not Available 10/26/2024 11:48:37 08/30/20 24 08/30/2024 CBC W Auto Diffe renti al panel - Blood hemoglobin [mass/volume ] in blood 14.5 text: 14.0 - 18.0 g/dL HGB 14.5 14.0 - 18.0 G/DL 08/30 11:15 AM DIRECT CARE WORKER [facility] Not Available Not Available 10/26/2024 11:48:37 08/30/20 24 08/30/2024 CBC W Auto Diffe renti al panel - Blood hematocrit [volume fraction] of blood 43 % low: 43%hig h: 54% HCT 43.0 43.0 - 54.0 % 08/30 11:15 AM DIRECT CARE WORKER [facility] Not Available Not Available 10/26/2024 11:48:37 08/30/20 24 08/30/2024 CBC W Auto Diffe renti al panel - Blood MCV [entitic volume] 88.8 text: 80.0 - 100.0 fL MCV 88.8 80.0 - 100.0 FL 08/30 11:15 AM DIRECT CARE WORKER [facility] Not Available Not Available 10/26/2024 11:48:37 08/30/20 24 08/30/2024 CBC W Auto Diffe renti al panel - Blood MCH [entitic mass] 30 pg low: 26pghi gh: 34pg MCH 30.0 26.0 - 34.0 PG 08/30 11:15 AM DIRECT CARE WORKER [facility] Not Available Not Available 10/26/2024 11:48:37 08/30/20 24 08/30/2024 CBC W Auto Diffe renti al panel - Blood MCHC [mass/volume ] 33.7 text: 31.0 - 37.0 g/dL MCHC 33.7 31.0 - 37.0 G/DL 08/30 11:15 AM DIRECT CARE WORKER [facility] Not Available Not Available 10/26/2024 11:48:37 08/30/20 24 08/30/2024 CBC W Auto Diffe renti al panel - Blood erythrocyte distribution width [entitic volume] by automated count 12.8 % low: 11.6%h igh: 14.8% RDW 12.8 11.6 - 14.8 % 08/30 11:15 AM DIRECT CARE WORKER [facility] Not Available Not Available 10/26/2024 11:48:37 08/30/20 24 08/30/2024 CBC W Auto Diffe renti al panel - Blood platelets [#/volume] in blood 314 text: 130 - 400 x10'3/ uL PLT 314 130 - 400 x10'3 /uL 08/30 11:15 AM DIRECT CARE WORKER [facility] Not Available Not Available 10/26/2024 11:48:37 08/30/20 24 08/30/2024 CBC W Auto Diffe renti al panel - Blood platelet mean volume [entitic volume] in blood 9.3 text: 7.0 - 12.0 fL MPV 9.3 7.0 - 12.0 FL 08/30 11:15 AM DIRECT CARE WORKER [facility] Not Available Not Available 10/26/2024 11:48:37 08/30/20 24 08/30/2024 CBC W Auto Diffe renti al panel - Blood service comment AUTOMA MUMTAZ RBC MORPHO LOGY AND PLATEL ET EVALUA TION NORMAL CBC COMME NT AUTOM ATED RBC MORPH OLOGY AND PLATE LET EVALU ATION KATHLEEN L 08/30 11:15 AM DIRECT CARE WORKER [facility] Not Available Not Available 10/26/2024 11:48:37 08/30/20 24 08/30/2024 CBC W Auto Diffe renti al panel - Blood neutrophils/ 100 leukocytes in blood by automated count 50.2 % low: 40%hig h: 74% NEUTR OPHIL S % 50.2 40.0 - 74.0 % 08/30 11:15 AM DIRECT CARE WORKER [facility] Not Available Not Available 10/26/2024 11:48:37 08/30/20 24 08/30/2024 CBC W Auto Diffe renti al panel - Blood lymphocytes/ 100 leukocytes in blood by automated count 36.6 % low: 14%hig h: 46% LYMPH OCYTE S % 36.6 14.0 - 46.0 % 08/30 11:15 AM DIRECT CARE WORKER [facility] Not Available Not Available 10/26/2024 11:48:37 08/30/20 24 08/30/2024 CBC W Auto Diffe renti al panel - Blood monocytes/10 0 leukocytes in blood by automated count 9.6 % low: 4%high : 13% MONOC YTES % 9.6 4.0 - 13.0 % 08/30 11:15 AM DIRECT CARE WORKER [facility] Not Available Not Available 10/26/2024 11:48:37 08/30/20 24 08/30/2024 CBC W Auto Diffe renti al panel - Blood eosinophils/ 100 leukocytes in blood by automated count 2.8 % low: 0%high : 7% EOSIN OPHIL S 2.8 0.0 - 7.0 % 08/30 11:15 AM DIRECT CARE WORKER [facility] Not Available Not Available 10/26/2024 11:48:37 08/30/20 24 08/30/2024 CBC W Auto Diffe renti al panel - Blood basophils/10 0 leukocytes in blood by automated count 0.5 % low: 0%high : 3% BASOP HILS 0.5 0.0 - 3.0 % 08/30 11:15 AM DIRECT CARE WORKER [facility] Not Available Not Available 10/26/2024 11:48:37 08/30/20 24 08/30/2024 CBC W Auto Diffe renti al panel - Blood immature granulocytes /100 leukocytes in blood by automated count 0.3 % low: 0%high : 0.43% IMMAT URE GRANS % 0.3 0.0 - 0.43 % 08/30 11:15 AM DIRECT CARE WORKER [facility] Not Available Not Available 10/26/2024 11:48:37 08/30/20 24 08/30/2024 CBC W Auto Diffe renti al panel - Blood nucleated erythrocytes /100 leukocytes [ratio] in blood 0 % NRBC % 0.0 % 08/30 11:15 AM DIRECT CARE WORKER [facility] Not Available Not Available 10/26/2024 11:48:37 08/30/20 24 08/30/2024 CBC W Auto Diffe renti al panel - Blood neutrophils [#/volume] in blood 6.45 text: 1.69 - 7.81 x10'3/ uL ABS. NEUTR OPHIL S TOTAL 6.45 1.69 - 7.81 x10'3 /uL 08/30 11:15 AM DIRECT CARE WORKER [facility] Not Available Not Available 10/26/2024 11:48:37 08/30/20 24 08/30/2024 CBC W Auto Diffe renti al panel - Blood lymphocytes [#/volume] in blood 4.7 text: 0.21 - 5.42 x10'3/ uL ABS. LYMPH OCYTE S 4.70 0.21 - 5.42 x10'3 /uL 08/30 11:15 AM DIRECT CARE WORKER [facility] Not Available Not Available 10/26/2024 11:48:37 08/30/20 24 08/30/2024 CBC W Auto Diffe renti al panel - Blood monocytes [#/volume] in blood 1.23 text: 0.04 - 1.37 x10'3/ uL ABS. MONOC YTES 1.23 0.04 - 1.37 x10'3 /uL 08/30 11:15 AM DIRECT CARE WORKER [facility] Not Available Not Available 10/26/2024 11:48:37 08/30/20 24 08/30/2024 CBC W Auto Diffe renti al panel - Blood eosinophils [#/volume] in blood 0.36 text: 0.00 - 0.68 x10'3/ uL ABS. EOSIN OPHIL S 0.36 0.00 - 0.68 x10'3 /uL 08/30 11:15 AM DIRECT CARE WORKER [facility] Not Available Not Available 10/26/2024 11:48:37 08/30/20 24 08/30/2024 CBC W Auto Diffe renti al panel - Blood basophils [#/volume] in blood 0.06 text: 0.00 - 0.08 x10'3/ uL ABS. BASOP HILS 0.06 0.00 - 0.08 x10'3 /uL 08/30 11:15 AM DIRECT CARE WORKER [facility] Not Available Not Available 10/26/2024 11:48:37 08/30/20 24 08/30/2024 CBC W Auto Diffe renti al panel - Blood immature granulocytes [#/volume] in blood 0.04 text: 0.00 - 0.06 x10'3/ uL ABS. IMMAT URE GRANU LOCYT ES 0.04 0.00 - 0.06 x10'3 /uL 08/30 11:15 AM DIRECT CARE WORKER [facility] Not Available Not Available 10/26/2024 11:48:37 08/30/20 24 08/30/2024 CBC W Auto Diffe renti al panel - Blood nucleated erythrocytes [#/volume] in blood 0 text: 0.00 - 0.01 x10'3/ uL ABS. NUCLE ATED RBC'S 0.00 0.00 - 0.01 x10'3 /uL 08/30 11:15 AM DIRECT CARE WORKER [facility] Not Available Not Available 10/26/2024 11:48:37 08/30/20 24 08/30/2024 CBC W Auto Diffe renti al panel - Blood interpretati on and review of laboratory results Abnorm al Not Available Not Available 11:48:37 08/30/20 24 09/02/2024 Prote in elect ropho resis panel - Serum or Plasm a protein [mass/volume ] in serum or plasma 6.8 text: 6.0 - 8.3 g/dL TOTAL PROTE IN S/P/B 6.8 6.0 - 8.3 G/DL 09/01 12:43 PM DIRECT CARE WORKER [facility] Not Available Not Available 10/26/2024 11:48:37 08/30/20 24 09/02/2024 Prote in elect ropho resis panel - Serum or Plasm a albumin [mass/volume ] in serum or plasma 3.6 text: 3.4 - 4.9 g/dL ALBUM IN S/P/B 3.6 3.4 - 4.9 G/DL 09/01 12:42 PM DIRECT CARE WORKER [facility] Not Available Not Available 10/26/2024 11:48:37 08/30/20 24 09/02/2024 Prote in elect ropho resis panel - Serum or Plasm a alpha 1 globulin [mass/volume ] in serum or plasma by electrophore sis 0.4 text: 0.2 - 0.4 g/dL ALPHA -1-GL OBULI N S/P/B 0.4 0.2 - 0.4 G/DL 09/01 12:42 PM DIRECT CARE WORKER [facility] Not Available Not Available 10/26/2024 11:48:37 08/30/20 24 09/02/2024 Prote in elect [facility] panel - Serum or Plasm a alpha 2 globulin [mass/volume ] in serum or plasma by electrophore sis 1 text: 0.4 - 1.0 g/dL ALPHA -2-GL OBULI N S/P/B 1.0 0.4 - 1.0 G/DL 09/01 12:42 PM DIRECT CARE WORKER [facility] Not Available Not Available 10/26/2024 11:48:37 08/30/20 24 09/02/2024 Prote in elect [facility] panel - Serum or Plasm a beta globulin [mass/volume ] in serum or plasma by electrophore sis 1.1 text: 0.5 - 1.2 g/dL BETA GLOBU ZOILA S/P/B 1.1 0.5 - 1.2 G/DL 09/01 12:42 PM DIRECT CARE WORKER [facility] Not Available Not Available 10/26/2024 11:48:37 08/30/20 24 09/02/2024 Prote in elect [facility] panel - Serum or Plasm a gamma globulin/pro tein.total in serum or plasma by electrophore sis 0.8 text: 0.6 - 1.6 g/dL GAMMA GLOBU ZOILA S/P/B 0.8 0.6 - 1.6 G/DL 09/01 12:42 PM DIRECT CARE WORKER [facility] Not Available Not Available 10/26/2024 11:48:37 08/30/20 24 09/02/2024 Prote in elect [facility] panel - Serum or Plasm a electrophore sis interpretati on THIS SERUM PEP WAS INTERP RETED BY [facility] RESIS INTER PRETA TION THIS SERUM PEP WAS INTER PRETE D BY 09/02 5:59 AM DIRECT CARE WORKER [facility] Not Available Not Available 10/26/2024 11:48:37 08/30/20 24 08/30/2024 Magne sium [Mass /volu me] in Serum or Plasm a magnesium [mass/volume ] in serum or plasma 1.9 text: 1.8 - 2.4 mg/dL MAGNE SIUM 1.9 1.8 - 2.4 MG/DL 08/30 11:53 AM [facility] Not Available Not Available 10/26/2024 11:48:37 10/01/1910/01/2024 Creat inine [Mass /volu me] in Blood creatinine [mass/volume ] in blood 1.1 text: 0.6 - 1.2 mg/dL CREAT ININE WHOLE BLOOD 1.1 0.6 - 1.2 MG/DL 10/01 4:[address] [facility] ([facility] Not Available Not Available 10/26/2024 11:48:33 10/27/1910/27/2024 25-Hy droxy vitam in D3+25 -Hydr oxyvi tamin D2 [Mass /volu me] in Serum or Plasm a 25-hydroxyvi tamin D3+25-hydrox yvitamin D2 [mass/volume ] in serum or plasma 39 text: 30 - 100 NG/mL VITAM IN D 25 HYDRO XY S/P/B 39 30 - 100 NG/ML 10/27 12:[address] [facility] ([facility] Not Available Not Available 11/05/2024 10:56:01 11/08/1911/08/2024 Hemog lobin A1c/H emogl obin. total in Blood hemoglobin A1C, POC 6.1 % low: 4%high : 5.6% Hemog lobin A1C, POC 6.1 4.0 - 5.6 % Not Available Not Available 11/16/2024 15:48:59 11/08/19 25 11/08/2024 Hemog lobin A1c/H emogl obin. total in Blood interpretati on and review of laboratory results Abnorm al Not Available Not Available 15:48:59 Result Notes None recorded. Problems Name Problem SNOMED Code Status Onset Date Resolution Date Notes Provider Name and Address Organization Details Recorded Time Essential hypertensi on 08862848 Active 2023 Reta Vang MD Attn: Rosalba cartagena,[address] [facility], [place], [address], [place] - [facility] 4 12:24:20 Diabetes mellitus 03388268 Active 2023 Reta Vang MD Attn: Rosalba cartagena,[address] [facility], [place], [address], [place] [facility] 4 12:24:21 Hyperlipid emia 53306998 Active 2023 Reta Vang MD Attn: Rosalba cartagena,[address] [facility], [place], [address], [place] [facility] 4 12:24:22 Coronary atheroscle rosis 911637236 Active 2023 Reta Vang MD Attn: Rosalba cartagena,[address] [facility], [place], [address], [place] [facility] 4 21:42:51 Vitamin D deficiency 18807970 Active 2024 Constantine Mcginnis MA null, [place] [facility] 5 11:43:45 Spinal stenosis in cervical region 71373320 Active 20[address] Reta Vang MD Attn: Tiffphi cartagena,[address] [facility], [place], [address], [place] [facility] 5 16:52:19 Problem Notes None recorded. Procedures Surgical History Date Name Laterality Status Provider Name and Address Organization Details Recorded Time Angioplasty With Stent completed Lela Phillips MA [place] [facility] 12/25/2023 11:33:27 Imaging Results None recorded. Procedure Notes None recorded. Medical Equipment None Reported. Allergies Allergen ID Allergen Name Allergen Category Reaction Reaction Severity Criticality Documentation Date Start Date Code Code System Note Provider Name and Address Organization Details Recorded Time 153317 ticagrelo r medicatio n Not available Not available [facility] 07/12/2024 [id number] 32 RxNorm makes pt have troub le edagr pantoja Not Available Not Available Not Available Medications Name Sig Start Date Stop Date Status Note LastModified by Organization Details LastModified Time metformin 500 mg tablet TAKE 1 TABLET BY MOUTH TWICE A DAY WITH MEALS active Not Available Not Available No t Available atorvastati n 80 mg tablet Take 1 tablet every day by oral route. active Not Available Not Available No t Available isosorbide mononitrate ER 30 mg tablet,exte nded release 24 hr TAKE 1 TABLET BY MOUTH EVERY DAY 12/24 completed Not Available Not Available Not Available amlodipine 2.5 mg tablet TAKE 1 TABLET BY MOUTH EVERY DAY AT BEDTIME HOLD FOR SYSTOLIC BLOOD PRESSURE <105 12/24 completed Not Available Not Available Not Available clopidogrel 75 mg tablet Take 1 tablet every day by oral route. active Not Available Not Available No t Available tramadol 50 mg tablet TAKE 1 TABLET BY MOUTH EVERY 6 HOURS NEEDED FOR PAIN. ACUTE PAIN < 7 DAY SUPPLY, POST OP active Not Available Not Available No t Available methocarbam ol 750 mg tablet TAKE 1 TABLET BY MOUTH TWICE A DAY NEEDED active Not Available Not Available No t Available tamsulosin 0.4 mg capsule TAKE 1 CAPSULE BY MOUTH EVERYDAY AT BEDTIME active Not Available Not Available No t Available OneTouch Ultra Test strips TEST BLOOD SUGARS FOUR TIMES EVERY DAY active Not Available Not Available No t Available nitroglycer in 0.[address] 1 TABLET UNDER TONGUE EVERY 5 MINS, UP TO 3 DOSES NEEDED FOR CHEST PAIN active Not Available Not Available No t Available lisinopril 5 mg tablet TAKE 1 TABLET BY MOUTH EVERY DAY active Not Available Not Available No t Available metoprolol succinate ER 25 mg tablet,exte nded release 24 hr TAKE 1 TABLET (25 MG TOTAL) BY MOUTH DAILY. active Not Available Not Available No t Available ergocalcife rol (vitamin D2) 1,250 mcg (50,000 unit) capsule TAKE 1 CAPSULE EVERY WEEK BY ORAL ROUTE. active Not Available Not Available No t Available finasteride 5 mg tablet TAKE 1 TABLET BY MOUTH EVERY DAY active Not Available Not Available No t Available ezetimibe 10 mg tablet TAKE 1 TABLET BY MOUTH EVERY DAY active Not Available Not Available No t Available pregabalin 75 mg capsule TAKE 1 CAPSULE BY MOUTH TWICE A DAY active Not Available Not Available No t Available ranolazine ER 500 mg tablet,exte nded release,12 hr TAKE 1 TABLET BY MOUTH TWICE A DAY active Not Available Not Available No t Available Senexon-S 8.6 mg-50 mg tablet TAKE 1 TABLET BY MOUTH EVERY DAY active Not Available Not Available No t Available Farxiga 10 mg tablet TAKE 1 TABLET BY MOUTH EVERY DAY active Not Available Not Available No t Available FreeStyle Annel 2 Sensor kit CHANGE SENSOR EVERY 2 WEEKS 12/24 completed Not Available Not Available Not Available Vitals Date Recorded Body weight Body mass index (BMI) Body height Heart rate Body temperature Oxygen saturation Oxygen saturation in Arterial blood by Pulse oximetry Systolic blood pressure Diastolic blood pressure Provider Name and Address Organization Details Last Updated DateTime 4 87221.0 1 g 37.6 kg/m2 162.56 cm 63 /min 98.4 [degF] 96 % 96 % 124 mm[Hg] 82 mm[Hg] Lela Phillips MA [facility] 4 11:39:32 Date Recorded Body height Body mass index (BMI) Body weight Heart rate Oxygen saturation Oxygen saturation in Arterial blood by Pulse oximetry Systolic blood pressure Diastolic blood pressure Provider Name and Address Organization Details Last Updated DateTime 4 162.56 cm 37.1 kg/m2 81280.9 5 g 71 /min 97 % 97 % 126 mm[Hg] 78 mm[Hg] Rose Zapata MA [facility] 4 10:55:34 Date Recorded Body height Body mass index (BMI) Body weight Heart rate Oxygen saturation Oxygen saturation in Arterial blood by Pulse oximetry Systolic blood pressure Diastolic blood pressure Provider Name and Address Organization Details Last Updated DateTime 4 162.56 cm 36.4 kg/m2 52951.2 2 g 67 /min 99 % 99 % 116 mm[Hg] 62 mm[Hg] Allie Pina MA [facility] 4 11:26:12 Date Recorded Body height Body mass index (BMI) Body weight Heart rate Oxygen saturation Oxygen saturation in Arterial blood by Pulse oximetry Systolic blood pressure Diastolic blood pressure Provider Name and Address Organization Details Last Updated DateTime 5 162.56 cm 34.4 kg/m2 35216.9 9 g 77 /min 96 % 96 % 112 mm[Hg] 62 mm[Hg] Stefanie Reyna MA [facility] 11:03:21 Social History Question Answer Notes LastModified by Organizat ion Details LastModified Time Tobacco Smoking Status Never Smoker Lela Phillips MA null, [place] - [facility] 12/25/2023 11:34:14 Do You Have An Advance Directive? No Information n ot available 04/29/2024 What Is Your Level Of Alcohol Consumption? Occasional Information not available 12/25/2023 Are You Blind Or Do You Have Difficulty Seeing? No Information n ot available 12/25/2023 In The 14 Days Before Symptom Onset, Have You Had Close Contact With A Laboratory-confirm ed COVID-19 While That Case Was Ill? No Information n ot available 10/14/2024 In The 14 Days Before Symptom Onset, Have You Had Close Contact With A Person Who Is Under Investigation For COVID-19 While That Person Was Ill? No Information not available 10/14/2024 Have You Been To An Area Known To Be High Risk For COVID-19? No Information not available 10/14/2024 Are You Deaf Or Do You Have Serious Difficulty Hearing? No Information not available 12/25/2023 What Was The Date Of Your Most Recent Tobacco Screening? 10/14/2024 Information not available 10/14/2024 What Is Your Relationship Status? Information not available 12/25/2023 Do You Use Your Seat Belt Or Car Seat Routinely? Yes Information not available 04/29/2024 Do You Have Smoke And Carbon Monoxide Detectors In Your Home? Yes Information not available 04/29/2024 Do You Feel Stressed (tense, Restless, Nervous, Or Anxious, Or Unable To Sleep At Night)? [id number] Information not available 12/25/2023 Do You Use Any Illicit Or Recreational Drugs? No Information not available 04/29/2024 Do You Use Sunscreen Routinely? Yes Information not available 10/14/2024 Has Tobacco Cessation Counseling Been Provided? No Information not available 04/29/2024 Do You Or Have You Ever Used Any Other Forms Of Tobacco Or Nicotine? No Information not available 04/29/2024 Sex: Male Functional Status Question Answer Note LastModified by Organization D etails LastModified Time Are you able to care for yourself? Yes Information n ot available 12/25/2023 Mental Status None recorded. Family History Relationship Description Onset Age of this Age Resolved Age Notes LastModified by Organization Details LastModified Time Father Diabetes mellitus [email or web address] Not available 2023 11:33:43 Father Heart disease [email or web address] Not available 2023 11:33:48 Father Hypertensive disorder [email or web address] Not available 2023 11:33:55 Father Hypercholest erolemia apaytonma Not available 2023 11:34:01 Mother Heart disease apaytonma Not available 2023 11:33:48 Mother Hypertensive disorder apaytonma Not available 2023 11:33:55 Mother Hypercholest erolemia apaytonma Not available 2023 11:34:01 Medical History Condition Response Diabetes Y Coronary Artery Disease Y Heart Attack (AR) Y High Blood Pressure Y High Cholesterol Y Past Encounters Encounter ID Performer Location Encounter Start Date Encounter Closed Date Diagnosis/Indication Diagnosis SNOMED-CT Code Diagnosis ICD10 Code Diagnosis Note [id number] Reta Vang MD [facility] [employer] [address] [place] [address] 12/25/2023 10:59:11 12/25/2023 12:43:16 Essential hypertension 79657446 I10 Hyperlipidemia 91112704 E78.5 Diabetes mellitus 635785 09 E11.9 Screening for malignant neoplasm of prostate 795037878 Z12.5 Long-term drug therapy 131171251 Z79.899 Coronary atherosclerosis 727082665 I25.10 [id number] Reta Vang MD [facility] [employer] [address] [place] [address] 1 04/29/2024 10:27:36 04/29/2024 11:43:21 Vitamin D deficiency 11953399 E55.9 Essential hypertension 97175832 I10 Diabetes mellitus 608944 09 E11.9 Coronary atherosclerosis 688930352 I25.10 Hyperlipidemia 54175198 E78.5 [id number] Reta Vang MD [facility] [employer] [facility] [place] [address] [place] [address] 07/12/2024 10:55:52 07/12/2024 12:48:41 Obesity 740213571 E66.9 BMI 36.4 Disorder o f urinary bladder 12954420 N32.89 Essential hypertension 22519153 I10 Diabetes mellitus 531376 09 E11.9 Hyperlipidemia 10423205 E78.5 Coronary atherosclerosis 511865973 I25.10 [id number] Reta Vang MD [facility] [employer] [facility] [place] [address] [place] [address] 10/14/2024 10:29:51 10/14/2024 11:44:29 Body mass index 30+ - obesity 106009317 Z68.34 Obesity 605897957 E66.9 BMI 36.4 Essential hypertension 41789176 I10 Diabetes mellitus 142799 09 E11.9 Hyperlipidemia 18910941 E78.5 Vitamin D deficiency 347 14854 E55.9 Coronary atherosclerosis 982028351 I25.10 Health Concerns Section Related Observation LastModified by Organization Detai ls LastModified Time None Recorded Concern Status LastModified by Organization Details LastModified Time None Recorded Advance Directives Directive N: Payers Encounter Date Sequence Insurance Name Policy Number Policy Quach Covered Member ID Quach Member ID Guarantor Name 12/25/2023 1 [employer] - [employer] (PPO) [id number] Bruno Soria Dex [id number] Bruno Kowalski 04/29/2024 1 [employer] (PP[employer]) [id number] Bruno Soria Dex [id number] Bruno Soria Dex 07/12/2024 1 [employer] (PPO) [id number] Bruno Soria Dex [id number] Bruno Soria Dex 10/14/2024 1 [employer] - [employer] (PPO) [id number] Bruno Soria Dex [id number] Bruno Kowalski Notes Date Note Type Note Provider Name and Address Organization Details Recorded Time 12/25/2023 text/html 53-year-old with a history of hypertension hyperlipidemia diabetes coronary atherosclerosis with stent and ongoing problems with neck pain and vertigo and has been evaluated by specialist comes in for ongoing medical care hypertension no headache at this time hyperlipidemia does try to follow his diet diabetes no polyphagia or polydipsia CAD he has ongoing chest pain cardiology and him are working through various strategies continues to have this kind just foggy feeling Reta Vang MD Attn: Accounting, [address] , [place], [address], [facility] 01/12/2024 21:44:52 04/29/2024 text/html Diabetes last A1 c 5.6 a couple of months ago no polyphagia polydipsia. Hypertension no shortness of breath at this time no headache. CAD intermittent problems with some chest pain working with Cardiology. Dyslipidemia does try to follow a low-fat diet. Anxiety is up a little bit just because he has not been given a good reason why he continues to have discomfort except for microvascular heart disease is what he has been told Reta Vang MD Attn: Accounting, [address] [facility], [place], [address], [facility] 04/29/2024 21:26:52 07/12/2024 text/html hypertension he does have some headache no chest pain at this time or shortness of breath. CAD he has had residual chest pain from time to time despite run isolate. Neuropathy pregabalin with equivocal results diabetes no polyphagia no polydipsia. Obesity hard time losing some weight. Neck pain patient has seen neurology he has seen Neurosurgery they have recommended that he have epidural injection with physical therapy and he will follow up with Neurosurgery in a couple of weeks CT scan was done b Reta Vang MD Attn: Accounting, [address] [facility], [place], [address], [facility] 07/12/2024 21:35:04 10/14/2024 text/html tolerated his ne ck surgeries already feeling a little bit better in getting a little bit more function out of his fingers unless tingling. Diabetes no polyphagia polydipsia dyslipidemia does try to watch his diet low vitamin-D level he takes a supplementation CAD no chest pain or shortness of breath at this time but he has had some ongoing chest pain and works with Cardiology on that hypertension his blood pressure is well controlled Reta Vang MD Attn: Accounting, [address] [facility], [place], [address], [place] [facility] 10/16/2024 16:54:58
--- OUTSIDE RECORDS SUMMARY | 2024-11-17 01:14 | XMS_ITS | Encounter Summary ---
Author Organization [facility] - [facility] Address [facility] [place] [address] Care Team Providers Care Academic Advisor Name Role Phone Rios Vang MD Primary Care Provider [phone] Camden Perez MD Unavailable Shaunna Guillermo MD Unavailable [phone] Encounter Details Date Type Department Care Team (Late st Contact Info) Description 05/11/2024 Delectable Message Enc [facility] - [address], [address] [place] [phone] [facility], [facility] Provider Results Social History Tobacco Use Types Packs/Day Years Used Date Smoking Tobacco: Never Smokeless Tobacco: Never Alcohol Use Standard Drinks/Week Comments Not Currently 0 (1 standard drink = 0.6 oz pur e alcohol) PHQ-2 Answer Date Recorded Patient Health Questionnaire-2 Score 0 04/01/2024 Sex and Gender Information Value Date Recorded Sex Assigned at Male 10/01/2024 2:09 PM NANOSCIENCE TECHNICIAN Legal Sex Male 8:03 AM CDT Gender Identity Not on file Sexual Orientation Not on file Occupation Industry Job Start Date Job End Date [employer] Not on file Not on file Not on file documented as of this encounter Functional Status * RETIRED Are you deaf or do you have serious difficulty hearing Answer Date of Assessment Author Status No 09/06/2022 1:00 AM NANOSCIENCE TECHNICIAN Activ e * RETIRED Are you blind or do you have serious difficulty seeing, even when wearing glasses? Answer Date of Assessment Author Status No 09/06/2022 1:00 AM NANOSCIENCE TECHNICIAN Activ e * Do you have serious [...] Description 01/04/2025 9:40 AM CDT Office Visit [facility] - [address], [address] [place] [phone] Teri Marmolejo NP [address] [place] [address] [place] [address] 02/10/2025 11:40 AM CDT Office Visit [facility] [address] [facility], [address] [place] [phone] Anjel Flores MD [address] [place] [address] 04/01/2025 12:30 PM CDT Office Visit [facility] [address] Camden Perez MD [address] [address] documented as of this encounter Goals Goal Patient Goal Type Associated Problems Recent Progress Patient-Stated? Author Patient will return to prior living situation and remain independent in ADLs upon discharge from hospital Lifestyle No Joaquina Horner, RN documented as of this encounter Visit Diagnoses Not on filedocumented in this encounter Care Teams Academic Advisor Relationship Specialty Start Date End Date Rios Vang MD [address] [phone] PCP - General INTERNAL MEDICINE 10/25/21 Camden Perez MD [address] [address] Consulting Physician CARDIOVASCULAR DISEASE 08/18/24 Shaunna Guillermo MD [address] [place] [address], [facility] [address] [place] [address] INTERNAL MEDICINE HEMATOLOGY & ONCOLOGY 08/18/24 documented as of this encounter
--- OUTSIDE RECORDS SUMMARY | 2024-11-17 01:14 | XMS_ITS | Patient Health Summary ---
Author Organization [facility] Address [address] [place] [address] Care Team Providers Care Tankage Grinder Operator Name Role Phone Unavailable Primary Care Provider Unavailabl e Note from [facility],non-owned Affiliates and Associated Physician Practices is amultiple site organization consisting of ambulatory clinics and hospital sitesin [place], [place], [place] and [place]. This disclosure is being madepursuant to the Care Everywhere program and may not contain all information available regarding this patient. Last updated 18.[facility] Social History Tobacco Use Types Packs/Day Years Used Date Smoking Tobacco: Never Assessed Sex and Gender Information Value Date Recorded Sex Assigned at Not on file Gender Identity Not on file Sexual Orientation Not on file
--- OUTSIDE RECORDS SUMMARY | 2024-11-17 01:14 | XMS_ITS | Clinical Summary ---
Author Organization [facility] Address [address] [place] [address] Care Team Providers Care Barrel Line Operator Name Role Phone Unavailable Primary Care Provider Unavailabl e Source Comments [facility],non-owned Affiliates and Associated Physician Practices is amultiple site organization consisting of ambulatory clinics and hospital sitesin [place], [place], [place] and [place]. This disclosure is being madepursuant to the Care Everywhere program and may not contain all information available regarding this patient. Last updated 18.[facility] Social History Tobacco Use Types Packs/Day Years Used Date Smoking Tobacco: Never Assessed Sex and Gender Information Value Date Recorded Sex Assigned at Not on file Gender Identity Not on file Sexual Orientation Not on file Plan of Treatment Health Maintenance Due Date Last Done Comments COLOGUARD (AGES 45-75) - COL ON CA SCREENING 1969 COLON MONITORING 1969 COLONOSCOPY - COLON CA SCREENING 1969 CT COLONOGRAPHY - COLON CA SCREENING 1969 Colorectal Cancer Screening 1969 FIT - COLON CA SCREENING 1969 FLEX SIG - COLON CA SCREENING 1969 LIPID TESTING 1969 HIV SCREENING 1984 HEPATITIS C SCREENING 06/21/1987 DTAP/TDAP/TD VACCINES (1 - Tdap) 1988 HEPATITIS B VACCINE (1 of 3 - 19+ 3-dose series) 1988 PNEUMOCOCCAL VACCINE 50+ (1 of 1 - PCV) 2019 ZOSTER VACCINE (1 of 2) 2019 COVID-19 VACCINE (1 - 2023-2 5 season) 2024 INFLUENZA VACCINE (#1) 2024 DEPRESSION SCREENING 09/15/2024 HIB VACCINE Aged Out No longer eligi ble based on patient's age to complete this topic HPV VACCINE Aged Out No longer eligi ble based on patient's age to complete this topic MENINGOCOCCAL (Group B) VACCINE Aged Out No longer eligible based on patient's age to complete this topic MENINGOCOCCAL VACCINE Aged Out No isabella steven eligible based on patient's age to complete this topic PNEUMOCOCCAL VACCINE Aged Out No long er eligible based on patient's age to complete this topic
--- OUTSIDE RECORDS SUMMARY | 2024-11-17 01:14 | XMS_ITS | Clinical Summary ---
Author Organization [facility] Address [address] [place] [address] Phone Care Team Providers Care Learning Support Aide Name Role Phone Teri Marmolejo APRN, DIRECTOR [facility] Primary Care Provide r Gideon Cortés MD Unavailable Allergies Active Allergy Reactions Criticality Noted Date Comments Ticagrelor Other (see Comments) ,Shortness of Breath High 09/18/2022 Medications ergocalciferol (VITAMIN D) 16881 UNIT Capsule Take 1.25 mg by mouth. Active clopidogrel (PLAVIX) 75 MG Tablet Take 75 mg by mouth. 2 Active ranolazine (RANEXA) 500 MG TABLET SR 12 HR Take 500 mg by mouth. 4 Active metoprolol Succinate (TOPROL-XL) 25 MG TABLET SR 24 HR Take 25 mg by mouth daily. 4 Active ezetimibe (ZETIA) 10 MG Tablet Take 10 mg by mouth daily. 4 Active atorvastatin (LIPITOR) 80 MG Tablet Take 80 mg by mouth. 1 Active lisinopril (PRINIVIL, ZESTRIL) 5 MG Tablet Take 5 mg by mouth daily. 2 Active pregabalin (LYRICA) 75 MG Capsule Take 1 Capsule by mouth 2 times daily. 4 Active nitroGLYCERIN (NITROSTAT) 0.4 MG SL Tablet 0.4 mg by Sublingual route. 2 Active metFORMIN (GLUCOPHAGE) 500 MG Tablet Take 500 mg by mouth. 2 Active Dapagliflozin Propanediol (Farxiga) 10 MG Tablet Take 10 mg by mouth daily. 4 Active Active Problems No known active problems Encounters Date Type Department Care Team Description 09/06/2024 8:15 AM RAILROAD BRAKE REPAIRER Office Visit [facility] [address] [place] [address] Bianka Marroquin, HIGH SCHOOL CHEMISTRY TEACHER, DIRECTOR [facility] Elevated serum immunoglobulin free light chain level (Primary Dx); Leukocytosis, unspecified type 09/06/2024 Travel 08/30/2024 10:15 AM RAILROAD BRAKE REPAIRER Clinical Support [facility] [address] [place] [address] Nurse, [facility] Elevated serum immunoglobulin free light chain level (Primary Dx); Leukocytosis, unspecified type 08/30/2024 Travel from Last 3 Months Family History Medical History Relation Name Comments Heart Disease Father Heart Attack Mother Hypertension Mother Relation Name Status Comments Father Mother Alive Sister Alive Social History Tobacco Use Types Packs/Day Years Used Date Smoking Tobacco: Never Smokeless Tobacco: Never Tobacco Cessation:Counseling Given: No Alcohol Use Standard Drinks/Week Comments Never 0 (1 standard drink = 0.6 oz pur e alcohol) Sexually Active Control Partners Comments Yes Sex and Gender Information Value Date Recorded Sex Assigned at Not on file Legal Sex Male 3:54 PM RAILROAD BRAKE REPAIRER Gender Identity Not on file Sexual Orientation Not on file Last Filed Vital Signs Vital Sign Reading Time Taken Comments Blood Pressure 120/80 09/06/2024 8:30 AM RAILROAD BRAKE REPAIRER Pulse 68 09/06/2024 8:30 AM RAILROAD BRAKE REPAIRER Temperature 36.5 C (97.7 F) 09/06/2024 8:30 AM RAILROAD BRAKE REPAIRER Respiratory Rate - - Oxygen Saturation 98% 09/06/2024 8:30 AM RAILROAD BRAKE REPAIRER Inhaled Oxygen Concentration - - Weight 93 kg (205 lb) 09/06/2024 8:30 AM RAILROAD BRAKE REPAIRER Height 167.6 cm (5' 6 ) 09/06/2024 8:30 AM RAILROAD BRAKE REPAIRER Body Mass Index 33.09 09/06/2024 8:30 AM RAILROAD BRAKE REPAIRER Plan of Treatment Upcoming Encounters Date Type Department Care Team (Late st Contact Info) Description 02/28/2025 9:00 AM CDT Clinical Support [facility] [address] [place] [phone] Nurse, Maddison Martin 03/07/2025 8:15 AM CDT Office Visit [facility] [address] [place] [phone] Gideon Cortés MD [address] [place] [address] Health Maintenance Due Date Last Done Comments Hepatitis C Virus (HCV) Screening 1969 TdaP Immunization 1969 Hepatitis B Immunization (1 of 3 - 19+ 3-dose series) 1988 Colonoscopy 2014 Colorectal Cancer Screening 2014 Cologuard 2019 Immunochemical Fecal Occult Blood 2019 Pneumococcal Immunization (5 0+ years) (1 of 1 - PCV) 2019 Zoster Immunization (1 of 2) 2019 Influenza Immunization (#1) 2024 SARS-COV-2 Immunization (1 - 2023- season) 2024 PSA Discussion 2024 Respiratory Syncytial Virus (RSV) Immunization (Adult) (1 - 1-dose 75+ series) 2044 Meningococcal Immunization (ACWY) Aged Out No longer eligible based on patient's age to complete this topic Rotavirus Immunization Aged Out No lo nger eligible based on patient's age to complete this topic Insurance [facility] Care Teams Learning Support Aide Relationship Specialty Start Date End Date Teri Marmolejo APRN, DIRECTOR [facility] [address] [phone] PCP - General Advanced Practice Nurse 04/19/24 Gideon Cortés MD [address] [place], [place] [address] Consulting Physician Oncology 04/19/24
--- OUTSIDE RECORDS SUMMARY | 2024-11-17 01:15 | XMS_ITS | Data Portability ---
Author Organization [place] - [facility], Main Office Address [address] [place] [address] Care Team Providers Care Therapy Aide Name Role Phone RETA VANG Primary Care Provider RETA VANG Referring Provider Assessment Encounter Date Assessment Date Assessment LastModified by Organization Details LastModified Time 12/02/2022 12/02/2022 Restart beta-hossein Methimazole Endocrinology Keep his appointment with me in 3 weeks [email or web address] Not available 12/02/2022 23:15:04 12/19/2022 12/19/2022 Anxiety possibly some depression but does not want medication he says he is going to go back to work which she states cardiology will let him do and he thinks once he gets focus back on that he will be better he will see me in 3 months [email or web address] Not available 12/19/2022 14:11:38 03/25/2023 03/25/2023 Continue current therapy for him see me back in 4 months [email or web address] Not available 03/25/2023 21:01:11 07/29/2023 07/29/2023 Blood work has been ordered he will continue follow-up with specialist. Dizziness may be multifactorial the chest pain possibly some microvascular disease ongoing neck issues may need to see pain management [email or web address] Not available 08/05/2023 20:31:23 Plan of Treatment Reminders Order Date Submit Date Provider Last Modified By Organization Details Last Modified Time Details Appointments None recorded . Lab PSA, total, serum or plasma 023 07/29/20 [facility], [address] [facility] [address], [place], [address], 15:02:54 lipid panel, serum 023 07/29/20 [facility], [address] [facility], [facility], [place], [address], 3 14:06:57 CMP, serum or plasma 023 07/29/20 [facility], [address] [facility], [facility], [place], [address], 3 15:02:54 CBC w/ auto diff 023 07/29/20 [facility], [address] [facility], [facility] [address], [place], [address], 3 15:02:54 HbA1c (hemoglo bin A1c), blood 023 07/29/20 [facility], [address] [facility], [facility] [address], [place], [address], 3 15:14:56 Referral None recorded . Procedures None recorded . Surgeries None recorded . Imaging None recorded . Medication Orders None recorded . Patient TargetsNo targets recorded. Patient InstructionsNo instructions recorded. Reason for Referral None Reported. Results Created Date Observation Date Name Description Value Unit Range Abnormal Flag Note LastModifiedBy Organization Detail LastModifiedTime 11/23/1911/22/2022 T3 FREE free T3 9.4 pg/mL 2.77-5 .27 high Not Available [facility] (Lab) [address] [place], [address], 11/22/2022 19:56:13 11/23/19 23 11/22/2022 T4 FREE free T4 2.67 NG/dL 0.78-2 .19 high Not Available [facility] (Lab) [address] [place], [address], 11/22/2022 19:56:20 11/23/19 23 11/22/2022 TSH thyroid-stim ulating hormone 1.200 uIU/m L 0.465- 4.680 Not Available [facility] (Lab) [address] [place], [address], 11/22/2022 20:18:24 11/23/19 23 11/25/2022 THYRO GLOBU ZOILA ANTIB JERMAIN thyroglobuli n antibody <1.0 IU/mL 0.0-0. 9 Thyro globu zoila Antib jermain measu red by Beckm an Coult er Metho dolog y Perfo rmed at: [facility] - [facility] [address] [place] [address] Lab Direc tor: Everett rm PhD, Phone : [phone] Not Available [facility] (Lab) [address] [place], [address], 11/25/2022 17:09:05 02/12/20 24 02/12/2024 CBC/C OMPLE TE BLD COUNT W/DIF F white blood cells 10.7 x10'3 /uL 4.2-10 .8 Not Available [facility] (Lab) [address] [place], [address], 02/12/2024 13:09:45 02/12/20 24 02/12/2024 CBC/C OMPLE TE BLD COUNT W/DIF F red blood cells 4.82 x10'6 /uL 4.10-5 .80 Not Available [facility] (Lab) [address] [place], [address], 02/12/2024 13:09:45 02/12/20 24 02/12/2024 CBC/C OMPLE TE BLD COUNT W/DIF F hemoglobin 14.4 g/dL 13.2-1 7.0 Not Available [facility] (Lab) [address] [place], [address], 02/12/2024 13:09:45 02/12/20 24 02/12/2024 CBC/C OMPLE TE BLD COUNT W/DIF F hematocrit 44.4 % 39.3-5 0.0 Not Available [facility] (Lab) [address] [place], [address], 02/12/2024 13:09:45 02/12/20 24 02/12/2024 CBC/C OMPLE TE BLD COUNT W/DIF F mean red cell volume 92.1 fL 80.0-9 7.0 Not Available [facility] (Lab) [address] [place], [address], 02/12/2024 13:09:45 02/12/20 24 02/12/2024 CBC/C OMPLE TE BLD COUNT W/DIF F mean red cell hemoglobin 29.9 pg 27.0-3 3.0 Not Available [facility] (Lab) [address] [place], [address], 02/12/2024 13:09:45 02/12/20 24 02/12/2024 CBC/C OMPLE TE BLD COUNT W/DIF F mean RBC HGB concentratio n 32.4 g/dL 31.0-3 6.0 Not Available [facility] (Lab) [address] [place], [address], 02/12/2024 13:09:45 02/12/20 24 02/12/2024 CBC/C OMPLE TE BLD COUNT W/DIF F red cell distribution width 13.2 % 11.8-1 5.5 Not Available [facility] (Lab) [address] [place], [address], 02/12/2024 13:09:45 02/12/20 24 02/12/2024 CBC/C OMPLE TE BLD COUNT W/DIF F platelets 291 x10'3 /uL 150-40 0 Not Available [facility] (Lab) [address] [place], [address], 02/12/2024 13:09:45 02/12/20 24 02/12/2024 CBC/C OMPLE TE BLD COUNT W/DIF F mean platelet volume 9.3 fL 9.0-12 .4 Not Available [facility] (Lab) [address] [place], [address], 02/12/2024 13:09:45 02/12/20 24 02/12/2024 CBC/C OMPLE TE BLD COUNT W/DIF F neutrophils 45.8 % 39.0-7 2.0 Not Available [facility] (Lab) [address] [place], [address], 02/12/2024 13:09:45 02/12/20 24 02/12/2024 CBC/C OMPLE TE BLD COUNT W/DIF F lymphocytes 39.9 % 16.0-4 7.0 Not Available [facility] (Lab) [address] [place], [address], 02/12/2024 13:09:45 02/12/20 24 02/12/2024 CBC/C OMPLE TE BLD COUNT W/DIF F monocytes 9.3 % 5.0-12 .0 Not Available [facility] (Lab) [address] [place], [address], 02/12/2024 13:09:45 02/12/20 24 02/12/2024 CBC/C OMPLE TE BLD COUNT W/DIF F eosinophils 4.2 % 1.0-7. 0 Not Available [facility] (Lab) [address] [place], [address], 02/12/2024 13:09:45 02/12/20 24 02/12/2024 CBC/C OMPLE TE BLD COUNT W/DIF F basophils 0.6 % 0.0-2. 0 Not Available [facility] (Lab) [address] [place], [address], 02/12/2024 13:09:45 02/12/20 24 02/12/2024 CBC/C OMPLE TE BLD COUNT W/DIF F immature granulocytes 0.2 % 0.00-0 .50 Not Available [facility] (Lab) [address] [place], [address], 02/12/2024 13:09:45 02/12/20 24 02/12/2024 CBC/C OMPLE TE BLD COUNT W/DIF F neutrophils, absolute count 4.90 x10'3 /uL 1.5-8. 0 Not Available [facility] (Lab) [address] [place], [address], 02/12/2024 13:09:45 02/12/20 24 02/12/2024 CBC/C OMPLE TE BLD COUNT W/DIF F lymphocytes, absolute count 4.26 x10'3 /uL 1.07-3 .43 high Not Available [facility] (Lab) [address] [place], [address], 02/12/2024 13:09:45 02/12/20 24 02/12/2024 CBC/C OMPLE TE BLD COUNT W/DIF F monocytes, absolute count 0.99 x10'3 /uL 0.29-0 .99 Not Available [facility] (Lab) [address] [place], [address], 02/12/2024 13:09:45 02/12/20 24 02/12/2024 CBC/C OMPLE TE BLD COUNT W/DIF F eosinophils, absolute count 0.45 x10'3 /uL 0.02-0 .53 Not Available [facility] (Lab) [address] [place], [address], 02/12/2024 13:09:45 02/12/20 24 02/12/2024 CBC/C OMPLE TE BLD COUNT W/DIF F basophils, absolute count 0.06 x10'3 /uL 0.01-0 .08 Not Available [facility] (Lab) [address] [place], [address], 02/12/2024 13:09:45 02/12/20 24 02/12/2024 CBC/C OMPLE TE BLD COUNT W/DIF F immature granulocytes ,absolute 0.02 x10'3 /uL 0.00-0 .05 Not Available [facility] (Lab) [address] [place], [address], 02/12/2024 13:09:45 02/12/20 24 02/12/2024 CBC/C OMPLE TE BLD COUNT W/DIF F nucleated red blood cells 0.0 % -0 Not Available [facility] (Lab) [address] [place], [address], 02/12/2024 13:09:45 02/12/20 24 02/12/2024 CBC/C OMPLE TE BLD COUNT W/DIF F NRBC# 0.00 x10'3 /uL Not Available [facility] (Lab) [address] [place], [address], 02/12/2024 13:09:45 02/12/20 24 02/12/2024 COMPR EHENS DEJAH METAB OLIC PANEL sodium 136 mmol/ L 137-14 5 low Not Available [facility] (Lab) [address] [place], [address], 02/12/2024 13:14:06 02/12/20 24 02/12/2024 COMPR EHENS DEJAH METAB OLIC PANEL potassium 4.7 mmol/ L 3.5-5. 1 Not Available [facility] (Lab) [address] [place], [address], 02/12/2024 13:14:06 02/12/20 24 02/12/2024 COMPR EHENS DEJAH METAB OLIC PANEL chloride 106 mmol/ L 98-107 Not Available [facility] (Lab) [address] [place], [address], 02/12/2024 13:14:06 02/12/20 24 02/12/2024 COMPR EHENS DEJAH METAB OLIC PANEL carbon dioxide 24 mmol/ L 22-30 Not Available [facility] (Lab) [address] [place], [address], 02/12/2024 13:14:06 02/12/20 24 02/12/2024 COMPR EHENS DEJAH METAB OLIC PANEL anion gap 10.7 mmol/ L 14-22 low Not Available [facility] (Lab) [address] [place], [address], 02/12/2024 13:14:06 02/12/20 24 02/12/2024 COMPR EHENS DEJAH METAB OLIC PANEL glucose 120 mg/dL 70-99 high Not Available [facility] (Lab) [address] [place], [address], 02/12/2024 13:14:06 02/12/20 24 02/12/2024 COMPR EHENS DEJAH METAB OLIC PANEL BUN 16 mg/dL 8-19 Not Available [facility] (Lab) [address] [place], [address], 02/12/2024 13:14:06 02/12/20 24 02/12/2024 COMPR EHENS DEJAH METAB OLIC PANEL creatinine 0.97 mg/dL 0.66-1 .25 Not Available [facility] (Lab) [address] [place], [address], 02/12/2024 13:14:06 02/12/20 24 02/12/2024 COMPR EHENS DEJAH METAB OLIC PANEL GFR >60 Refer ence Range : Vendor ge GFR Healt hy Adult : >60 mL/mi n/1.7 3 m2 Chron ic Kidne y Disea se: 15-60 mL/mi n/1.7 3 m2 Kidne y Failu re: <15/m L/min /1.73 m2 www.n iddk. nih.g ov The MDRD study equat ion has not been valid ated in child clive <18 years of age; pregn ant women ; the elder ly >85 years of age; or in some racia l or ethni c subgr oups, such as Hispa nics. Outsi de the valid ated bethany eters , estim ated GFR is less accur ate, requi ring clini john judgm ent on a case- by-ca se basis . Clini john inter preta tion for other races and ages must be made by the clini mikala. The MDRD study equat ion has not been valid ated for the evalu ation of serum creat inine relat ed to nutri gabriele l statu s or medic ation usage . For perso ns <18 years of age, a pedia tric GFR calcu lator is avail able on the [facility] websi te: https ://marcy w.rosa mejia.o rg/pr ofess ional s/kdo qi/gf r_cal culat or Not Available [facility] (Lab) [address] [place], [address], 02/12/2024 13:14:06 02/12/20 24 02/12/2024 COMPR EHENS DEJAH METAB OLIC PANEL alkaline phosphatase 64 U/L 38-126 Not Available [facility] (Lab) [address] [place], [address], 02/12/2024 13:14:06 02/12/20 24 02/12/2024 COMPR EHENS DEJAH METAB OLIC PANEL alanine aminotransfe rase 31 U/L 0-50 Not Available [facility] (Lab) [address] [place], [address], 02/12/2024 13:14:06 02/12/20 24 02/12/2024 COMPR EHENS DEJAH METAB OLIC PANEL aspartate aminotransfe rase 28 U/L 15-46 Not Available [facility] (Lab) [address] [place], [address], 02/12/2024 13:14:06 02/12/20 24 02/12/2024 COMPR EHENS DEJAH METAB OLIC PANEL bilirubin, total 0.90 mg/dL 0.20-1 .30 Not Available [facility] (Lab) [address] [place], [address], 02/12/2024 13:14:06 02/12/20 24 02/12/2024 COMPR EHENS DEJAH METAB OLIC PANEL calcium 9.1 mg/dL 8.4-10 .2 Not Available [facility] (Lab) [address] [place], [address], 02/12/2024 13:14:06 02/12/20 24 02/12/2024 COMPR EHENS DEJAH METAB OLIC PANEL total protein 6.5 g/dL 6.3-8. 2 Not Available [facility] (Lab) [address] [place], [address], 02/12/2024 13:14:06 02/12/20 24 02/12/2024 COMPR EHENS DEJAH METAB OLIC PANEL albumin 3.9 g/dL 3.4-5. 0 Not Available [facility] (Lab) [address] [place], [address], 02/12/2024 13:14:06 02/12/20 24 02/12/2024 COMPR EHENS DEJAH METAB OLIC PANEL globulin 2.6 g/dL 2.6-4. 2 Not Available [facility] (Lab) [address] [place], [address], 02/12/2024 13:14:06 02/12/20 24 02/12/2024 COMPR EHENS DEJAH METAB OLIC PANEL A/G ratio 1.5 ratio 1.0-2. 0 Not Available [facility] (Lab) [address] [place], [address], 02/12/2024 13:14:06 02/12/20 24 02/12/2024 LIPID PANEL cholesterol 79 mg/dL 140-19 9 low NIH LIVIA NSUS RECOM MENDA TION FOR PRESTON STERO L: ADULT CHILD LOW RISK: <200 <170 BORDE RLINE : <200- 239 ----- HIGH RISK: >240 >200 Not Available [facility] (Lab) [address] [place], [address], 02/12/2024 13:14:08 02/12/20 24 02/12/2024 LIPID PANEL triglyceride s 109 mg/dL 0-150 NIH LIVIA NSUS REPOR T RECOM MENDA TION FOR TRIGL YCERI LUIZ: ADULT CHILD LOW RISK: <150 ----- BODER LINE: 150-1 99 ----- HIGH RISK: >200 ----- Not Available [facility] (Lab) [address] [place], [address], 02/12/2024 13:14:08 02/12/20 24 02/12/2024 LIPID PANEL HDL cholesterol 30 mg/dL 40- low Not Available [facility] (Lab) [address] [place], [address], 02/12/2024 13:14:08 02/12/20 24 02/12/2024 LIPID PANEL LDL cholesterol, calculated 27 mg/dL 0-130 NIH LIVIA NSUS REPOR T RECOM MENDA TIONS FOR LDL: ADULT CHILD LOW RISK <130 <110 (OPTI MAL LDL) <100 ----- BORDE RLINE : 130-1 59 ----- HIGH RISK: >160 >130 A TRIGL YCERI DE RESUL T >400 INVAL IDATE S THE CALCU LATIO N FOR LDL FRACT IONAT ION - THE LDL RESUL T WILL NOT BE REPOR MUMTAZ. Not Available [facility] (Lab) [address] [place], [address], 02/12/2024 13:14:08 02/12/20 24 02/12/2024 T3 FREE free T3 7.2 pg/mL 2.77-5 .27 high Not Available [facility] (Lab) [address] [place], [address], 02/12/2024 13:31:21 02/12/20 24 02/12/2024 T4 FREE free T4 1.94 NG/dL 0.78-2 .19 Not Available [facility] (Lab) [address] [place], [address], 02/12/2024 13:31:31 02/12/20 24 02/12/2024 VITAM IN D 25-HY DROXY vd25oh 25.5 NG/mL 30-100 low Vitam in D Statu s: Defic ient: <20 ng/mL Insuf ficie nt: 20-29 ng/mL Suffi cient : 30-10 0 ng/mL Not Available [facility] (Lab) [address] [place], [address], 02/12/2024 13:32:17 02/12/20 24 02/12/2024 TSH thyroid-stim ulating hormone 0.879 uIU/m L 0.465- 4.680 Not Available [facility] (Lab) [address] [place], [address], 02/12/2024 13:51:48 02/12/20 24 02/12/2024 PSA SCREE N PSA medicare screen 0.44 NG/mL 0.00-4 .00 Not Available [facility] (Lab) [address] [place], [address], 02/12/2024 13:51:55 02/12/20 24 02/12/2024 HEMOG LOBIN A1C HA1C 6.6 % 4.0-6. 0 high Diabe josefina Scree jean marie Crite stacy: <5.7% Consi stent with absen ce of diabe josefina 5.7-6 .4% Consi stent with incre ased risk for diabe josefina (pred iabet es) >OR=6 .5% Consi stent with diabe josefina REFER ENCE: Diabe josefina Care 2015, 39(Estes ppl.1 ):s13 -s22 Not Available [facility] (Lab) [address] [place], [address], 02/12/2024 20:46:33 09/05/20 22 09/05/2022 XR, chest No observ ation record ed. [id number] [facility], [place], [address], 11/13/2022 06:10:07 12/05/19 23 11/07/2022 NM, myoca rdial perfu malou scan No observ ation record ed. [email or web address] Not Available 2022 08:39:24 04/20/20 24 04/20/2024 elect romyo gram + nerve condu ction study No observ ation record ed. [address], [place], [address], 05/27/2024 15:24:24 04/28/20 24 04/27/2024 MRI, head, w/wo contr ast No observ ation record ed. [address], [address], 05/27/2024 15:24:52 04/28/20 24 04/27/2024 MRI, brain + brain stem, w/wo contr ast No observ ation record ed. [address], [place], [address], 05/27/2024 15:25:30 05/04/20 24 05/04/2024 imagi ng/di agnos tic resul t No observ ation record ed. [address], [address], 05/27/2024 15:43:06 05/04/20 24 05/04/2024 MRI, lumba r spine , w/o contr ast No observ ation record ed. [address], [address], 05/27/2024 15:43:41 05/04/20 24 05/04/2024 MRI, cervi john spine , w/wo contr ast No observ ation record ed. [address], [address], 05/27/2024 15:43:49 05/09/20 24 05/09/2024 MRI, head, w/wo contr ast No observ ation record ed. [address], [address], 05/27/2024 15:43:20 05/09/20 24 05/09/2024 MRI, neck, w/wo contr ast No observ ation record ed. [address], [address], 05/27/2024 15:42:49 05/10/20 24 05/10/2024 ryan nuous elect roenc ephal ogram with video No observ ation record ed. [address], [address], 05/27/2024 15:44:59 Result Notes None recorded. Problems Name Problem SNOMED Code Status Onset Date Resolution Date Notes Provider Name and Address Organization Details Recorded Time Disorder of shoulder 340963393 Active Not Available [facility] 3 20:49:44 Bilateral hip joint pain 0754555913791 9100 Active 2021 Not Available [facility] 3 20:49:44 Bilateral shoulder joint pain 6882428894174 9104 Active 2021 Not Available [facility] 3 20:49:44 Restless sleep 32195363 Active 2021 Not Available [facility] 3 20:49:44 Abnormal testostero ne 172545451 Active Not Available [facility] 3 20:49:44 Osteoarthr itis of knee 091735391 Active 2021 Not Available [facility] 3 20:49:44 Headache 61944125 Active 2021 Not Available [facility] 3 20:49:44 Type 2 diabetes mellitus without complicati on 437891279 Active 2021 Not Available [facility] 3 20:49:44 Dyslipidem ia 141667081 Active 2016 Not Available [facility] 3 20:49:44 Memory impairment 028811398 Active 2021 Not Available [facility] 3 20:49:44 Dizziness 691827280 Active 2021 Not Available [facility] 3 20:49:44 Coronary atheroscle rosis 982620467 Active 2022 Not Available [facility] 3 20:49:44 Cough 06153819 Active 2021 Not Available [facility] 3 20:49:44 Post traumatic osteoarthr itis 638066559 Active 2021 Not Available [facility] 3 20:49:44 Diabetes mellitus 26182375 Active Not Available [facility] 3 20:49:44 Obstructiv e sleep apnea syndrome 72484080 Active 2021 Not Available [facility] 3 20:49:44 Neck pain 73882610 Active Not Available [facility] 3 20:49:44 Fatigue 71440873 Active 2021 Not Available [facility] 3 20:49:44 Alcoholic fatty liver 31076997 Active 2022 Not Available [facility] 3 20:49:44 Hyperthyro idism 23338805 Active 2022 Not Available [facility] 3 20:49:44 Thyroid function tests abnormal 525462669 Active 2022 Not Available [facility] 3 20:49:44 Anxiety 26765941 Active 2022 Not Available [facility] 3 20:49:44 Notes:Medical History: Obesi ty with mod OSAHS, AHI = 17, 05/25/21 on autoCPAP 6- 18 cmH2O c/o IVRC Hyperlipidemia T2DM Hypogonadism Knee OA Problem Notes None recorded. Procedures Surgical History Date Name Laterality Status Provider Name and Address Organization Details Recorded Time Carpal tunnel completed Not Available [facility] 11/13/2022 05:57:01 Unlisted px femur/knee completed Not Available [facility] 11/13/2022 05:57:01 Heart Catheterization completed BETI Arellano [facility] 03/25/2023 11:13:27 Imaging Results Imaging Date Name Status LastModified by Organization Details LastModified Time 09/05/2022 XR, chest completed [id number] [facility], [place], [address], 11/13/2022 06:10:07 11/07/2022 NM, myocardial perfusion scan completed cyl Information not available 12/05/2022 08:39:24 04/20/2024 electromyogram + ner ve conduction study completed [address], [place], [address], 05/27/2024 15:24:24 04/27/2024 MRI, head, w/wo contrast completed [address], [address], 05/27/2024 15:24:52 04/27/2024 MRI, brain + brain stem, w/wo contrast completed [address], [address], 05/27/2024 15:25:30 05/04/2024 imaging/diagnostic result completed [address], [address], 05/27/2024 15:43:06 05/04/2024 MRI, lumbar spine, w /o contrast completed [address], [address], 05/27/2024 15:43:41 05/04/2024 MRI, cervical spine, w/wo contrast completed [place] [address] [place], [address], 05/27/2024 15:43:49 05/09/2024 MRI, head, w/wo contrast completed [address] [place], [address], 05/27/2024 15:43:20 05/09/2024 MRI, neck, w/wo contrast completed [address], [address], 05/27/2024 15:42:49 05/10/2024 continuous electroencephalogram with video completed [address], [address], 05/27/2024 15:44:59 Procedure Notes None recorded. Medical Equipment None Reported. Allergies Allergen ID Allergen Name Allergen Category Reaction Reaction Severity Criticality Documentation Date Start Date Code Code System Note Provider Name and Address Organization Details Recorded Time 77393 Brilinta medicatio n other severe Not available 11/13/2022 34655 36 RxNorm SOB Not Available [facility] 06:09:45 Medications Name Sig Start Date Stop Date Status Note LastModified by Organization Details LastModified Time BD Luer-Yvan Syringe 3 mL 23 x 1 USE TO INJECT TESTOSTE DYLAN EVERY 14 DAYS 10/09 completed Not Available Not Available Not Available metformin 500 mg tablet TAKE 1 TABLET BY MOUTH TWICE A DAY WITH MEALS active Not Available Not Available No t Available atorvasta tin 80 mg tablet TAKE 1 TABLET BY MOUTH ONCE A DAY TAKE 1 TABLET BY MOUTH NIGHTLY AT BEDTIME. active Not Available Not Available No t Available atorvasta tin 10 mg tablet TAKE 1 TABLET BY MOUTH EVERY DAY 12/19 completed Not Available Not Available Not Available azithromy kota 250 mg tablet TAKE 2 TABLETS BY MOUTH TODAY, THEN TAKE 1 TABLET DAILY FOR 4 DAYS 06/04 completed Not Available Not Available Not Available isosorbid e mononitra te ER 30 mg tablet,ex tended release 24 hr TAKE 1 TABLET BY MOUTH EVERY DAY 03/25 completed taken off by cardiolo gist Not Available Not Available Not Available amlodipin e 2.5 mg tablet TAKE 1 TABLET BY MOUTH EVERY DAY AT BEDTIME HOLD FOR SYSTOLIC BLOOD PRESSURE <105 active Not Available Not Available No t Available clopidogr el 75 mg tablet TAKE 1 TABLET BY MOUTH EVERY DAY active Not Available Not Available No t Available sildenafi l 100 mg tablet TAKE 1 TABLET BY MOUTH EVERY DAY NEEDED 05/25 completed Not Available Not Available Not Available [employer] Ultra Test strips USE TO TEST BLOOD SUGAR TWICE A DAY 03/25 completed Not Available Not Available Not Available misoprost ol 200 mcg tablet take 1 PO BID with diclofen ac 04/15 completed pt states he never took this. Not Available Not Available Not Available nitroglyc tee 0.4 mg sublingua l tablet PLACE 1 TABLET UNDER TONGUE EVERY 5 MINS, UP TO 3 DOSES NEEDED FOR CHEST PAIN active Not Available Not Available No t Available methimazo le 5 mg tablet TAKE 1 TABLET BY MOUTH TWICE A DAY active Not Available Not Available No t Available aspirin 81 mg chewable tablet CHEW 1 TABLET BY MOUTH DAILY. active Not Available Not Available No t Available diclofena c sodium 75 mg tablet,de layed release TAKE 1 TABLET BY MOUTH TWICE A DAY WITH MEALS 09/20 completed Not Available Not Available Not Available lisinopri l 5 mg tablet TAKE 1 TABLET BY MOUTH EVERY DAY active Not Available Not Available No t Available diclofena c sodium 50 mg tablet,de layed release TAKE 1 TABLET BY MOUTH TWICE A DAY 04/15 completed changed to 75mg per pt Not Available Not Available Not Available metoprolo l succinate ER 25 mg tablet,ex tended release 24 hr TAKE 1 TABLET BY MOUTH EVERY EVENING 07/29 completed CARDIOLO GIST TOOK OFF BEFORE HEART CATH Not Available Not Available Not Available testoster one cypionate 200 mg/mL intramusc ular oil INJECT 0.5 MILLILIT ER INTO MUSCLE EVERY WEEK 03/15 completed Not Available Not Available Not Available BD Luer-Yvan Syringe 3 mL 21 gauge x 1 1/2 USE TO INJECT TESTOSTE DYLAN WEEKLY 03/25 completed Not Available Not Available Not Available Cialis 5 mg tablet Take 1 tablet every day by oral route. 09/03 completed heart flutters Not Available Not Available Not Available Cialis 10 mg tablet TAKE 1 TABLET (10 MG TOTAL) BY MOUTH DAILY NEEDED FOR ERECTILE DYSFUNCT ION. 10/23 completed Not Available Not Available Not Available metoprolo l tartrate 25 mg tablet TAKE 1 TABLET BY MOUTH TWICE A DAY 12/19 completed Not Available Not Available Not Available sildenafi l (pulmonar y hypertens ion) 20 mg tablet TAKE 3 TABLETS (60 MG TOTAL) BY MOUTH NEEDED (BEFORE INTERCOU RSE) 05/25 completed Not Available Not Available Not Available Advil 12/02 completed Not Available Not Available Not Available ranolazin e ER 500 mg tablet,ex tended release,1 2 hr TAKE 1 TABLET BY MOUTH TWICE A DAY active Not Available Not Available No t Available OneTouch Ultra2 Meter kit USE TO TEST BLOOD SUGAR TWICE A DAY 03/25 completed Not Available Not Available Not Available AndroGel 20.25 mg/1.25 gram per pump act. (1.62 %) transderm al gel Apply four pumps by transder mal route daily. 06/04 completed Not Available Not Available Not Available OneTouch Delica Lancets 30 gauge USE TO TEST BLOOD SUGAR TWICE A DAY 10/09 completed Not Available Not Available Not Available Farxiga 10 mg tablet TAKE 1 TABLET BY MOUTH EVERY DAY active Not Available Not Available No t Available Ozempic 0.25 mg or 0.5 mg (2 mg/1.5 mL) subcutane ous pen injector INJECT 0.25 MG UNDER THE SKIN EVERY 7 DAYS 04/05 completed Not Available Not Available Not Available OneTouch Ultra Blue Test Strip USE TO TEST BLOOD SUGAR TWICE A DAYnee ds appt 03/25 completed Not Available Not Available Not Available FreeStyle Annel 2 Sensor kit CHANGE SENSOR EVERY 2 WEEKS active Not Available Not Available No t Available FreeStyle Annel 2 Drury USE DAILY DIRECTED active Not Available Not Available No t Available Vitals Date Recorded Body mass index (BMI) Body height Heart rate Body temperature Body weight Systolic blood pressure Diastolic blood pressure Provider Name and Address Organization Details Last Updated DateTime 3 37.6 kg/m2 162.56 cm 62 /min 97.4 [degF] 55380.7 3 g 110 mm[Hg] 64 mm[Hg] Not Available [facility] 3 06:02:24 Date Recorded Body height Body mass index (BMI) Body weight Body temperature Heart rate Systolic blood pressure Diastolic blood pressure Provider Name and Address Organization Details Last Updated DateTime 3 162.56 cm 37.1 kg/m2 74487.9 5 g 97.8 [degF] 82 /min 110 mm[Hg] 60 mm[Hg] BETI Arellano [employer] [facility] 3 15:20:57 Date Recorded Body height Body mass index (BMI) Body weight Body temperature Heart rate Systolic blood pressure Diastolic blood pressure Provider Name and Address Organization Details Last Updated DateTime 3 162.56 cm 37.9 kg/m2 522109. 91 g 98.5 [degF] 73 /min 126 mm[Hg] 72 mm[Hg] Sandra hardin RN [facility] 3 11:47:00 Date Recorded Body height Body mass index (BMI) Body weight Body temperature Heart rate Systolic blood pressure Diastolic blood pressure Provider Name and Address Organization Details Last Updated DateTime 3 162.56 cm 36.7 kg/m2 64977.7 7 g 97.8 [degF] 64 /min 112 mm[Hg] 80 mm[Hg] BETI Arellano [employer] [facility] 3 11:15:38 Date Recorded Body height Body mass index (BMI) Body weight Body temperature Heart rate Systolic blood pressure Diastolic blood pressure Provider Name and Address Organization Details Last Updated DateTime 3 162.56 cm 36.7 kg/m2 87034.7 7 g 98.6 [degF] 77 /min 110 mm[Hg] 62 mm[Hg] BETI Arellano [place] [employer] [facility] 3 11:23:19 Social History Question Answer Notes LastModified by Organization Details LastModified Time Tobacco Smoking Status Never Smoker Not Available [facility] 11/13/2022 05:56:03 Do You Have An Advance Directive? No MIGRATION.0301 [id number] Information not available 11/13/2022 What Is Your Level Of Alcohol Consumption? Occasional MIGRATION.0301 [id number] Information not available 11/13/2022 What Is Your Level Of Caffeine Consumption? Moderate MIGRATION.0301 [id number] Information not available 11/13/2022 How Much Tobacco Do You Chew? None MIGRATION.0301 [id number] Information not available 11/13/2022 In The 14 Days Before Symptom Onset, Have You Had Close Contact With A Laboratory-confi rmed COVID-19 While That Case Was Ill? No MIGRATION.0301 [id number] Information not available 11/13/2022 In The 14 Days Before Symptom Onset, Have You Had Close Contact With A Person Who Is Under Investigation For COVID-19 While That Person Was Ill? No MIGRATION.0301 [id number] Information not available 11/13/2022 Are You Currently Employed? Yes [email or web address] Information not available 12/19/2022 What Type Of Diet Are You Following? REGULAR MIGRATION.030 [id number] Information not available 11/13/2022 Which Illicit Or Recreational Drugs Have You Used? None MIGRATION.030 [id number] Information not available 11/13/2022 Do You Or Have You Ever Used E-cigarettes Or Vape? Never Used Electronic Cigarettes MIGRATION.030 [id number] Information not available 11/13/2022 What Is The Highest Grade Or Level Of School You Have Completed Or The Highest Degree You Have Received? SB89771-5 MIGRATION.030 235004 Information not available 11/13/2022 What Is Your Occupation? [employer] MIGRATION.030 [id number] Information not available 11/13/2022 Have There Been Any Changes To Your Family Or Social Situation? No MIGRATION.0301 [id number] Information not available 11/13/2022 What Is The Fluoride Status Of Your Home? Unknown MIGRATION.0301 [id number] Information not available 11/13/2022 Are There Any Guns Present In Your Home? Yes MIGRATION.0301 [id number] Information not available 11/13/2022 Do You Use Insect Repellent Routinely? No MIGRATION.0301 [id number] Information not available 11/13/2022 Where Do You Live? [place]House MIGRATION.0301 [id number] Information not available 11/13/2022 Do You Have A Medical Power Of Manager Cleaning? No MIGRATION.0301 [id number] Information not available 11/13/2022 What Was The Date Of Your Most Recent Tobacco Screening? 07/29/2023 Information not available 07/29/2023 Have You Ever Been Counseled For Unhealthy Alcohol Use? No MIGRATION.0301 [id number] Information not available 11/13/2022 Do You Have Any Pets? Yes MIGRATION.0301 [id number] Information not available 11/13/2022 What Is Your Relationship Status? MIGRATION.0301 [id number] Information not available 11/13/2022 Do You Use Your Seat Belt Or Car Seat Routinely? Yes MIGRATION.0301 [id number] Information not available 11/13/2022 Do You Have Smoke And Carbon Monoxide Detectors In Your Home? Yes MIGRATION.0301 489793 Information not available 11/13/2022 Are You Passively Exposed To Smoke? No MIGRATION.0301 [id number] Information not available 11/13/2022 Do You Or Have You Ever Used Smokeless Tobacco? Never Used Smokeless Tobacco MIGRATION.0301 [id number] Information not available 11/13/2022 Are There Any Smokers In Your House? No MIGRATION.0301 [id number] Information not available 11/13/2022 What Types Of Sporting Activities Do You Participate In? None MIGRATION.0301 152927 Information not available 11/13/2022 Do You Feel Stressed (tense, Restless, Nervous, Or Anxious, Or Unable To Sleep At Night)? SA10304-2 MIGRATION.0301 [id number] Information not available 11/13/2022 Do You Use Any Illicit Or Recreational Drugs? No MIGRATION.0301 [id number] Information not available 11/13/2022 Do You Use Sunscreen Routinely? No MIGRATION.0301 492805 Information not available 11/13/2022 Has Tobacco Cessation Counseling Been Provided? No Not Needed-n ever Smoked MIGRATION.0301 [id number] Information not available 11/13/2022 How Many Years Have You Smoked Tobacco? 0 MIGRATION.0301 858460 Information not available 11/13/2022 Have You Recently Traveled Abroad? No MIGRATION.0301 [id number] Information not available 11/13/2022 Do You Have Any Dietary Restrictions? No MIGRATION.0301 022491 Information not available 11/13/2022 Do You Or Have You Ever Used Any Other Forms Of Tobacco Or Nicotine? No MIGRATION.0301 860277 Information not available 11/13/2022 Sex: Male Functional Status Question Answer Note LastModified by Organizat ion Details LastModified Time What is your exercise level? None MIGRATION.[id number] Information not available 11/13/2022 Mental Status None recorded. Family History Relationship Description Onset Age of this Age Resolved Age Notes LastModified by Organization Details LastModified Time Father Diabetes mellitus MIGRATION.882 [id number] Not available 11/13/2022 05:57:09 Maternal Grandfather Heart disease MIGRATION.699 [id number] Not available 11/13/2022 05:57:09 Unspecified Relation Malignant neoplasm of colon and/or rectum MIGRATION.460 [id number] Not available 11/13/2022 05:57:09 Paternal Grandfather Heart disease MIGRATION.411 [id number] Not available 11/13/2022 05:57:09 Paternal Grandfather Family history of stroke MIGRATION.621 [id number] Not available 11/13/2022 05:57:09 Medical History Condition Response NERVE DISEASE N BLINDNESS N RHEUMATIC FEVER N KIDNEY STONES N BLADDER PROBLEMS N MRSA N CARPAL TUNNEL SYNDROME N OTHER # 1 N POLIO N LUNG DISEASE/DISORDER N HISTORY OF DRUG ABUSE N RADIATION / CHEMOTHERAPY N COPD N Other # 2 N SPORTS INJURY N ANKLE PAIN N BLOOD DISEASES N EAR OR HEARING PROBLEMS N MUMPS N SCHIZOPHRENIA N SHINGLES N SHOULDER PAIN N DEPRESSION (INCLUDING POST ) N BOWEL PROBLEMS N STROKE/TIA N KNEE PAIN N ULCERS N BENIGN PROSTATIC HYPERPLASIA N MEASLES N HYPOTENSION N MYOCARDIAL INFARCTION N OBESITY N GERD/NAUSEA N ANEURYSM N URINARY/BLADDER/KIDNEY PROBLEMS N CORONARY ARTERY DISEASE (CAD) N ADDICTION CONCERNS N ENDOMETRIOSIS N Impotence N USE OF BLOOD THINNERS N SKIN PROBLEMS N EMPHYSEMA N GASTROINTESTINAL DISORDER N PERIPHERAL VASCULAR DISEASE N MUSCLE,JOINT OR BONE PROBLEMS N DVT N STOMACH ULCERS N GASTROINTESTINAL BLEEDING N BLOOD CLOTS N ASTHMA N CATARACTS N USE OF NSAIDS N CONCUSSION OR SPINAL TRAUMA N ERECTILE DYSFUNCTION N VARICOSITIES N GI PROBLEMS N Low Testosterone N NEUROPATHY N INFERTILITY N AIDS/HIV N FRACTURES N CHEMOTHERAPY / RADIATION N LIVER DISEASE N MALE HYPOGONADISM N ELBOW PAIN N HYPERTENSION N Deficiency N TOURETTE'S N ANXIETY DISORDER N Metal allergy N BLOOD TRANSFUSION N ANEMIA/BLOOD DISORDER N CHRONIC EAR INFECTIONS N BIPOLAR DISORDER N BRONCHITIS N OSTEOARTHRITIS N TUBERCULOSIS N GLAUCOMA N FOOT PROBLEM N HEART VALVE DISORDERS N DIVERTICULITIS N CHICKENPOX N SLEEP APNEA N SOFT TISSUE INJURY N ALLERGIES/HAYFEVER N INFECTIOUS DISEASE N PROSTATE N HEART ARRHYTHMIA N INSOMNIA N RHEUMATOID ARTHRITIS N HIGH CHOLESTEROL / HYPERLIPIDEMIA N EYE PROBLEMS N HYPERTHYROIDISM N EDEMA N CHRONIC PAIN SYNDROME N HYPOTHYROIDISM N CAROTID BLOCKAGE N CONSTIPATION N BACK / NECK PROBLEMS N HAVE YOU BEEN HOSPITALIZED OR SEEN IN [facility] IN THE PAST YEAR ? N ATHEROSCLEROSIS N BURSITIS N BREAST PROBLEMS N HERNIATED DISC N DIALYSIS N ECZEMA N FIBROMYALGIA N OSTEOPOROSIS N ARTHRITIS N NO SIGNIFICANT PAST MEDICAL HISTORY N PERIPHERAL NEUROPATHY N APPENDICITIS N DIABETES, TYPE Y BAD TEETH N ENT N HEARTBURN / REFLUX N AUTISM SPECTRUM DISORDER (ASD) N HEPATITIS / LIVER DISEASE N GOUT N SLEEP DISORDER N ALZHEIMER'S DISEASE N Brain Problems N HERPES N DEMENTIA N HEADACHES/MIGRAINES N SEIZURES/EPILEPSY N VASCULAR DISEASE N PACEMAKER N Blood Disorder N HIP PAIN N DIZZINESS N HEAD TRAUMA OR INJURY N HEART DISEASE/HEART PROBLEMS N KIDNEY DISEASE N MULTIPLE SCLEROSIS N CARDIAC ARRHYTHMIA N CANCER: SPECIFY N ANESTHESIA COMPLICATIONS N ATRIAL FIBRILLATION N Gall Stones N PULMONARY EMBOLISM N AUTOIMMUNE DISEASE N Past Encounters Encounter ID Performer Location Encounter Start Date Encounter Closed Date Diagnosis/Indication Diagnosis SNOMED-CT Code Diagnosis ICD10 Code Diagnosis Note [id number] [facility] [address] [address] 04/05/2021 00:00:00 04/07/2021 21:42:39 [id number] [facility] [address] [address] 05/25/2021 00:00:00 05/26/2021 12:18:09 [id number] [facility] [address] [address] 09/03/2021 00:00:00 09/03/2021 21:56:06 [id number] [facility] [place] [address] [place] [address] 10/22/2021 00:00:00 10/22/2021 14:56:23 [id number] [facility] [place] [address] [place] [address] 12/07/2021 00:00:00 12/07/2021 10:01:36 [id number] [facility] [place] [address] [place] [address] 12/10/2021 00:00:00 12/10/2021 15:25:29 [id number] [facility] [place] [address] [place] [address] 01/08/2022 00:00:00 01/08/2022 13:06:02 [id number] [facility] [place] [address] [place] [address] 01/25/2022 00:00:00 01/26/2022 11:51:26 [id number] [facility] [address] [facility] [address] [address] 03/15/2022 00:00:00 04/14/2022 17:42:36 [id number] [facility] [address] [place] [address]., [address] [address] 04/15/2022 00:00:00 04/28/2022 22:20:02 [id number] [facility] [address] [place] [address]., [address] [address] 09/20/2022 00:00:00 09/22/2022 15:56:13 [id number] Reta Vang MD [facility] [address] [place] [address], [address] [address] 12/02/2022 14:58:35 12/02/2022 16:07:01 Thyroid function tests abnormal 861198656 R94.6 [id number] Reta Vang MD [facility] [place] [facility] [address] [place] [address] 12/19/2022 11:01:10 12/19/2022 12:13:03 Anxiety 43492132 F41.9 [id number] Reta Vang MD [facility] [place] [facility] [address] [address] 03/25/2023 11:04:01 03/25/2023 12:11:26 Dyslipidemia 675073848 E78.5 Coronary atherosclerosis 972564305 I25.10 Diabetes mellitus 462013 09 E11.9 [id number] Reta Vang MD [facility] Internal [facility] [place] [address] [facility] [place] [address] 07/29/2023 10:50:04 07/29/2023 13:02:22 Dyslipidemia 438299290 E78.5 Diabetes mellitus 254887 09 E11.9 Screening for malignant neoplasm of prostate 682912191 Z12.5 Coronary atherosclerosis 612968687 I25.10 Type 2 koko betes mellitus without complication 819050583 E11.9 Health Concerns Section Related Observation LastModified by Organization Detai ls LastModified Time None Recorded Concern Status LastModified by Organization Details LastModified Time None Recorded Advance Directives Directive N: Payers Encounter Date Sequence Insurance Name Policy Number Policy Quach Covered Member ID Quach Member ID Guarantor Name 12/02/2022 1 [employer] [facility] (O) [id number] Bruno C Dex [id number] Bruno C Dex 12/19/2022 1 [facility] (PPO) [id number] Bruno C Dex [id number] Bruno C Dex 03/25/2023 1 [facility] (PPO) [id number] Bruno C Dex [id number] Bruno C Dex 07/29/2023 1 [facility] (O) [id number] Bruno C Dex [id number] Bruno C Dex Notes Date Note Type Note Provider Name and Address Organization Details Recorded Time 12/02/2022 text/html Has felt nervous some time shaky they stopped his beta-hossein just for a day his TSH was normal but elevated T3 and mildly elevated T4 without any concurrent illness Reta Vang MD [address], [place], [address], [facility] 12/02/2022 23:15:35 12/19/2022 text/html He did see Endocrinology had thyroid ultrasound was told no nodule so he was taken off of the Tapazole he still feels wound up Reta Vang MD [address], [place], [address], [employer] 12/19/2022 14:12:12 03/25/2023 text/html Dyslipidemia tri es to take his diet series 3 CAD so his intermittent chest pain spells of weakness Reta Vang MD [address], [place], [address], [employer] 03/25/2023 21:01:26 07/29/2023 text/html Still working through Cardiology and Neurology with dizziness blood sugars he says her do an dyslipidemia tries to watch his diet still has bouts with the chest pain Reta Vang MD [address], [place], [address], [employer] 08/05/2023 20:31:53
[2024-11-17 07:36] VITALS: BP 124/80; PULSE 85; RESP 16; TEMP 35.9; O2SAT 98; BMI 32.9
[2024-11-17] MEDS: LACTATED RINGERS 1,000 ML 150 ML IV CONT (07:54)
--- NOTE | 2024-11-17 07:57 | WPDANESEPPF ---
Anes - Initial Pre Proc Eval Procedure: Operation Date: 11/17/24 09:00 Proposed Procedures p Screening Colonoscopy - Jonn Lott MD Date/Time: 11/17/24 07:57 Surgeon: Jonn Lott MD Pre Op Diagnosis: Screening Patient Data Age: 54 Gender: M Height: 1.65 m Weight: 89.8 kg Last Vital Signs Temp 35.9 C L 11/17/24 07:36 Pulse 85 11/17/24 07:36 Resp 16 11/17/24 07:36 BP 124/80 11/17/24 07:36 Pulse Ox 98 11/17/24 07:36 O2 Del Method Room Air 11/17/24 07:36 Allergies Allergy/AdvReac Type Severity Reaction Status Date / Time ticagrelor Allergy short of Verified 11/17/24 07:42 breath Home Medications ?Medication ?Instructions ?Recorded ?Confirmed ?Type atorvastatin 80 mg tablet (Lipitor) 80 mg PO DAILY 11/08/24 11/17/24 History clopidogrel 75 mg tablet 75 mg PO DAILY 11/08/24 11/17/24 History dapagliflozin propanediol 10 mg 10 mg PO DAILY 11/08/24 11/17/24 History tablet (Farxiga) ezetimibe 10 mg tablet 10 mg PO DAILY 11/08/24 11/17/24 History lisinopril 5 mg tablet 5 mg PO DAILY 11/08/24 11/17/24 History metformin 500 mg tablet 500 mg PO BID 11/08/24 11/17/24 History metoprolol succinate 25 mg 25 mg PO DAILY 11/08/24 11/17/24 History tablet,extended release 24 hr nitroglycerin 0.4 mg sublingual 0.4 mg sublingual Q5-15M PRN chest 11/08/24 11/08/24 History tablet pain pregabalin 75 mg capsule 75 mg PO Q12H 11/08/24 11/17/24 History ranolazine 500 mg tablet,extended 500 mg PO Q12H 11/08/24 11/17/24 History release,12 hr sennosides 8.6 mg-docusate sodium PO 11/08/24 History 50 mg tablet (Senexon-S) tamsulosin 0.4 mg capsule 0.4 mg PO DAILY 11/08/24 11/17/24 History tramadol 50 mg tablet 50 mg PO Q6H PRN pain 11/08/24 11/08/24 History Patient hx anesthesia problems: none Family hx anesthesia problems: none Results Review: All pre-operative results and documents have been reviewed as part of the pre-operative evaluation. [facility] Past Medical History Medical History (Updated 11/17/24 @ 07:57 by Satya Tripp MD) TULIO (obstructive sleep apnea) Obesity CAD (coronary artery disease) Surgical History Surgical History (Updated 11/17/24 @ 07:57 by Satya Tripp MD) History of coronary artery stent placement Social History Social History Smoking status: Never smoker Substance use type: does not use Anes - Eval Final PreProcedure Day of Procedure 11/17/24 07:57 Patient weight: obese Heart: regular rate and rhythm Lungs: clear to auscultation Airway: Mallampati scale class II and other (09/07 c- fusion) Neurological: alert and oriented Last oral intake: >/= 8 hours ASA classification: III Emergent: no Anesthetic plan: proceed Anesthesia type and monitoring: general GIVS and standard monitoring Results Review: All pre-operative results and documents have been reviewed as part of the pre-operative evaluation. Informed Consent: The patient's anesthetic plan and its attendant risks and benefits were discussed with the patient/family/POA. Questions were solicited and answers provided to the satisfaction of the patient/family/POA.
[2024-11-17 07:58] LABS: Glucose Point of Care 137 mg/dl (65-105)
--- NOTE | 2024-11-17 08:41 | PM.HPGS ---
History of Present Illness History of Present Illness Consent: Risks, benefits, and alternatives have been discussed and questions answered. Patient agrees to proceed with procedure. Chief complaint: Screening Narrative: Bruno Kowalski is a 54 year old male here for first screening colonoscopy Review of Systems Review of Systems: All systems reviewed & are unremarkable except as noted in HPI and below PMFSH Past Medical History Medical History (Updated 11/17/24 @ 08:44 by Jonn Lott MD) Colon cancer screening TULIO (obstructive sleep apnea) Obesity CAD (coronary artery disease) Surgical History Surgical History (Updated 11/17/24 @ 07:57 by Satya Tripp MD) History of coronary artery stent placement Social History Social History Smoking status: Never smoker Substance use type: does not use Meds Home Medications and Allergies Home Medications ?Medication ?Instructions ?Recorded ?Confirmed ?Type atorvastatin 80 mg tablet (Lipitor) 80 mg PO DAILY 11/08/24 11/17/24 History clopidogrel 75 mg tablet 75 mg PO DAILY 11/08/24 11/17/24 History dapagliflozin propanediol 10 mg 10 mg PO DAILY 11/08/24 11/17/24 History tablet (Farxiga) ezetimibe 10 mg tablet 10 mg PO DAILY 11/08/24 11/17/24 History lisinopril 5 mg tablet 5 mg PO DAILY 11/08/24 11/17/24 History metformin 500 mg tablet 500 mg PO BID 11/08/24 11/17/24 History metoprolol succinate 25 mg 25 mg PO DAILY 11/08/24 11/17/24 History tablet,extended release 24 hr nitroglycerin 0.4 mg sublingual 0.4 mg sublingual Q5-15M PRN chest 11/08/24 11/08/24 History tablet pain pregabalin 75 mg capsule 75 mg PO Q12H 11/08/24 11/17/24 History ranolazine 500 mg tablet,extended 500 mg PO Q12H 11/08/24 11/17/24 History release,12 hr sennosides 8.6 mg-docusate sodium PO 11/08/24 History 50 mg tablet (Senexon-S) tamsulosin 0.4 mg capsule 0.4 mg PO DAILY 11/08/24 11/17/24 History tramadol 50 mg tablet 50 mg PO Q6H PRN pain 11/08/24 11/08/24 History Allergies Allergy/AdvReac Type Severity Reaction Status Date / Time ticagrelor Allergy short of Verified 11/17/24 07:42 breath Vital Signs Vital Signs - 24 hr 11/17/24 07:36 Temperature 96.7 F L Pulse Rate 85 Respiratory Rate 16 Blood Pressure 124/80 Pulse Oximetry 98 Oxygen Delivery Room Air Exam Const: General: comfortable and no acute distress HENMT: Face/Nose/Sinus: Normal nares present Eyes: General: appearance normal, both eyes and all related structures Neck: Neck: no JVD Resp: Auscultation: clear to auscultation bilaterally Cardio: Rate: regular rate Rhythm: regular rhythm GI: Inspection: non-distended GI Palp: Yes Soft to palpation Skin: General skin exam: normal color Neuro: General: gait normal Speech: normal speech Extrem: General: normal to inspection Psych: Mental Status: mental status grossly normal Assessment and Plan Assessment and plan (1) Colon cancer screening: Code(s): Z12.11 - Encounter for screening for malignant neoplasm of colon Status: Acute Assessment and Plan: colonoscopy
[2024-11-17 09:06] VITALS: BP 82/40; PULSE 66; RESP 20; O2SAT 97
[2024-11-17 09:16] VITALS: BP 97/61; PULSE 78; RESP 20; O2SAT 97
[2024-11-17 09:26] VITALS: BP 104/65; PULSE 66; RESP 16; O2SAT 97
== END 2024-11-17 09:35 | disposition home or self-care (01) ==
PROVIDERS: PCP Internal Medicine; Referring Provider Internal Medicine; Visit Provider Internal Medicine Gastroenterology
PROC: 0DJD8ZZ Inspection of Lower Intestinal Tract, Via Natural or Artificial Opening Endoscopic (ICD-10-PCS; CPT 45378; principal; 2024-11-17 09:00)
DX: Z12.11 Encounter for screening for malignant neoplasm of colon (principal); D12.4 Benign neoplasm of descending colon; D12.8 Benign neoplasm of rectum; K63.5 Polyp of colon; K57.30 Diverticulosis of large intestine without perforation or abscess without bleeding; K64.8 Other hemorrhoids; Z79.84 Long term (current) use of oral hypoglycemic drugs; E66.9 Obesity, unspecified; Z68.32 Body mass index [BMI] 32.0-32.9, adult
CPT/HCPCS: 45385; 82948; 88305; J2003; J2704; J7120